=== PATIENT | female | born 1980 | race Caucasian/White ===

== ENCOUNTER 2017-01-09 07:21 | Inpatient (IN) | payer MEDICARE, MEDICAID ==
[~2017-01-09 07:21] MED LIST: Meropenem 500 MG SDV ONE
[2017-01-09] MEDS ORDERED: fentaNYL 25 MCG/HR Transdermal Patch TRDERM SCH (08:00)
[2017-01-09] MEDS ORDERED: Glycopyrrolate 0.2 MG/ML 5 ML MDV ONE (08:02)
[2017-01-09] MEDS ORDERED: Succinylcholine 200 MG/10 ML MDV ONE (08:02)
[2017-01-09] MEDS ORDERED: Ondansetron 4 MG/2 ML SDV ONE (08:02)
[2017-01-09] MEDS ORDERED: Propofol 200 MG/20 ML SDV ONE (08:02)
[2017-01-09] MEDS ORDERED: Rocuronium 50 MG/5 ML Vial ONE ×2 (08:02→10:23)
[2017-01-09] MEDS ORDERED: Dexamethasone 4 MG/ML SDV ONE (08:02)
[2017-01-09] MEDS ORDERED: Neostigmine Methylsulfate 1 MG/ML 5 ML Syringe ONE (08:06)
[2017-01-09] MEDS ORDERED: HYDROmorphone/Normal Saline 15 MG/30 ML PCA IV PRN (08:25)
[2017-01-09] MEDS: Albuterol/Ipratropium 3.0-0.5 MG/3 ML Neb Soln NEB ONE ×2 (08:26→15:00)
[2017-01-09] MEDS ORDERED: Dextrose 5%-Lactated Ringers 1,000 ML IV SCH (08:30)
[2017-01-09] MEDS ORDERED: ceFAZolin 2 GM in Premix Bag 1 BAG IV ONE (10:00)
[2017-01-09] MEDS ORDERED: Linezolid 200 MG/100 ML Bag IRR ONE (10:31)
[2017-01-09] MEDS ORDERED: Albuterol/Ipratropium 3.0-0.5 MG/3 ML Neb Soln INH PRN (12:18)
[2017-01-09] MEDS ORDERED: Ondansetron 4 MG/2 ML SDV IVPUSH PRN (12:23)
[2017-01-09] MEDS ORDERED: Baclofen 10 MG Tab PO PRN (12:30)
[2017-01-09] MEDS ORDERED: hydrOXYzine HCl 100 MG/2 ML SDV IM PRN (12:33)
[2017-01-09] MEDS ORDERED: Calcium Carbonate 500 MG Tab.Chew PO PRN (12:35)
[2017-01-09] MEDS ORDERED: FENTANYL PATCH CHECK TOP SCH (13:00)
[2017-01-09] MEDS ORDERED: Naloxone 0.4 MG/ML SDV IV PRN (13:03)
[2017-01-09] MEDS: hydrOXYzine HCl 25 MG Tab PO PRN (14:50)
[2017-01-09] MEDS: ceFAZolin 2 GM in Sodium Chloride 0.9% 50 ML IV SCH ×2 (14:58→21:00)
[2017-01-09] MEDS: Gabapentin 300 MG Cap PO SCH ×2 (14:59→20:48)
[2017-01-09] MEDS: Venlafaxine 100 MG Tab PO SCH ×2 (15:00→20:47)
[2017-01-09] MEDS: Albuterol/Ipratropium 3.0-0.5 MG/3 ML Neb Soln INH SCH ×2 (16:15→20:49)
[2017-01-09] MEDS ORDERED: Prazosin 1 MG Cap PO SCH (17:00)
[2017-01-09] MEDS: Dextrose 5%-Lactated Ringers 1,000 ML IV SCH (17:07)
[2017-01-09] MEDS: busPIRone 10 MG Tab PO SCH (20:45)
[2017-01-09] MEDS: Montelukast 10 MG Tab PO SCH (20:45)
[2017-01-09] MEDS: Formoterol/Mometasone 200-5 MCG 8.8 GM Inhaler IH SCH (20:45)
[2017-01-09] MEDS: Pregabalin 100 MG Cap PO SCH (20:59)
[2017-01-10] MEDS: Dextrose 5%-Lactated Ringers 1,000 ML IV SCH (00:43)
[2017-01-10] MEDS: ceFAZolin 2 GM in Sodium Chloride 0.9% 50 ML IV SCH (05:49)
--- NOTE | 2017-01-10 07:34 | ANES ---
DATE OF SERVICE: 01/10/2017 ADDENDUM: ANESTHESIA START TIME: 9:50 a.m. Adding an addendum to my anesthesia record as to which I gave 2 g Ancef preop at 0955 hours. Vito Serrano CRNA /[id number]
[2017-01-10] MEDS: Acetaminophen/Codeine 300-30 MG Tab PO PRN ×4 (08:26→21:25)
[2017-01-10] MEDS: Venlafaxine 100 MG Tab PO SCH ×3 (08:28→21:29)
[2017-01-10] MEDS: Propranolol 80 MG Cap.ER PO SCH (08:28)
[2017-01-10] MEDS: Celecoxib 200 MG Cap PO SCH (08:28)
[2017-01-10] MEDS: Loratadine 10 MG Tab PO SCH (08:28)
[2017-01-10] MEDS: Pantoprazole 40 MG Tab.CR PO SCH (08:28)
[2017-01-10] MEDS: Polyethylene Glycol 3350 Powder 17 GM Packet PO SCH ×2 (08:29→21:28)
[2017-01-10] MEDS: Gabapentin 300 MG Cap PO SCH ×3 (08:29→21:25)
[2017-01-10] MEDS: Formoterol/Mometasone 200-5 MCG 8.8 GM Inhaler IH SCH ×2 (08:35→21:27)
[2017-01-10] MEDS: Albuterol/Ipratropium 3.0-0.5 MG/3 ML Neb Soln INH SCH ×4 (08:35→21:25)
[2017-01-10] MEDS: Pregabalin 100 MG Cap PO SCH ×2 (08:36→21:25)
[2017-01-10] MEDS ORDERED: Polyethylene Glycol 3350 Powder 17 GM Packet PO SCH (09:00)
--- NOTE | 2017-01-10 09:22 | PN ---
DATE OF SERVICE: 01/10/2017 SUBJECTIVE: Shannon is postop day #1. Her IV came out. She has been up ambulating, tolerating clear liquids well. She is urinating without any difficulty. Oral intake was 2020 and urine output was 3650. Vital signs have been stable and pain is controlled. She was very sleepy when she came up from recovery room. Her fentanyl patch was removed, and she has been alert, ambulating quite well, and is on a fall risk, so was encouraged to put on her light when she is up and ambulating. REVIEW OF SYSTEMS: Remainder of review of systems negative for any pertinent positives and negatives. OBJECTIVE: GENERAL: Shannon Balderas is a pleasant 36-year-old female. VITAL SIGNS: TPR is 97, 51, 18. Blood pressure is 94/52. HEENT: Negative. NECK: Supple. HEART: Regular rate and rhythm. LUNGS: Clear. ABDOMEN: Dressings dry and intact. Abdominal binder is on. EXTREMITIES: Without peripheral edema. ASSESSMENT: Open laparotomy with lysis of adhesion, repair of recurrent incarcerated incisional hernia with mesh and placement of Interceed mesh for recurrent incarcerated incisional hernia on 01/09/2017. PLAN: 1. Tylenol No. 3 one to two q.4 hours p.r.n. pain. 2. Regular diet. 3. Dressing off, may shower. 4. Senna 1 b.i.d. 5. MiraLax 34 g b.i.d. 6. Good pulmonary toilet encouraged. 7. We will evaluate p.r.n. or in a.m. Tatiana Dhaliwal PA-C /[id number]
[2017-01-10] MEDS: Iron Sucrose Complex 500 MG in Sodium Chloride 0.9% 250 ML IV SCH (10:11)
[2017-01-10] MEDS: hydrOXYzine HCl 25 MG Tab PO PRN (11:15)
[2017-01-10] MEDS: lamoTRIgine 25 MG Tab PO SCH (15:04)
[2017-01-10] MEDS: Nicotine 14 MG/24 Hr Patch ONE ×2 (19:21→19:25)
[2017-01-10] MEDS: Nicotine 14 MG/24 Hr Patch TRDERM SCH (19:22)
[2017-01-10] MEDS ORDERED: Prazosin 1 MG Cap PO SCH (21:00)
[2017-01-10] MEDS: busPIRone 10 MG Tab PO SCH (21:27)
[2017-01-10] MEDS: Montelukast 10 MG Tab PO SCH (21:36)
[2017-01-11] MEDS: Acetaminophen/Codeine 300-30 MG Tab PO PRN ×3 (01:25→09:34)
[2017-01-11] MEDS: Pantoprazole 40 MG Tab.CR PO SCH (07:02)
[2017-01-11] MEDS: Formoterol/Mometasone 200-5 MCG 8.8 GM Inhaler IH SCH (07:05)
[2017-01-11] MEDS: Albuterol/Ipratropium 3.0-0.5 MG/3 ML Neb Soln INH SCH ×2 (07:05→11:17)
[2017-01-11] MEDS: Celecoxib 200 MG Cap PO SCH (07:59)
[2017-01-11] MEDS: Propranolol 80 MG Cap.ER PO SCH (08:00)
[2017-01-11] MEDS: Nicotine 14 MG/24 Hr Patch TRDERM SCH (08:00)
[2017-01-11] MEDS: Loratadine 10 MG Tab PO SCH (08:00)
[2017-01-11] MEDS: Venlafaxine 100 MG Tab PO SCH (08:00)
[2017-01-11] MEDS: Polyethylene Glycol 3350 Powder 17 GM Packet PO SCH (08:01)
[2017-01-11] MEDS: Gabapentin 300 MG Cap PO SCH (08:01)
[2017-01-11] MEDS: lamoTRIgine 25 MG Tab PO SCH (08:01)
[2017-01-11] MEDS: Pregabalin 100 MG Cap PO SCH (08:05)
[2017-01-11] MEDS: Iron Sucrose Complex 500 MG in Sodium Chloride 0.9% 250 ML IV SCH (08:18)
[2017-01-11] MEDS ORDERED: Magnesium Hydroxide 400 MG/5 ML Susp 30 ML Cup PO ONE (10:15)
[2017-01-11 10:50] VITALS: BP 121/78
--- NOTE | 2017-01-11 18:30 | DISCH ---
FINAL DIAGNOSIS: Recurrent incarcerated incisional hernia with extensive intra-abdominal adhesions. SECONDARY DIAGNOSES: 1. Psychiatric issues including adult night terrors, anxiety and depression with bipolar II disorder and personality disorder and posttraumatic stress disorder. 2. Drug-seeking behavior. 3. History of Idiopathic thrombocytopenic purpura. 4. History of migraines. PROCEDURES: 1. Done on the date of admission is open laparotomy with lysis of adhesions. a. Repair of recurrent incarcerated incisional hernia with mesh. b. Placement of Interceed mesh to limit recurrent adhesion formation. HOSPITAL COURSE: This is a 28-year-old presenting with recurrent hernia located in the mid abdomen along the midline incision. The plan is proceed with an open repair of this. She has had quite extensive adhesions and the extent of hernia would make this a better repair done as open, particularly givin the overlying deformity of the abdominal wall which would be corrected at the time of closure of the open incision. This procedure was done on the date of admission, and she has done well postoperatively. She is presently eating and passing gas, not moving her bowels as of yet. The plan will be to discharge home today with the patient receiving some additional Tylenol 3. We will give Tylenol No. 3, 1 to 2 tabs q.4 hours p.r.n. pain, #40. She will continue the Celebrex and the gabapentin as preoperatively and send her home with 2 doses of milk of magnesia. She will be instructed to use MiraLAX more in colonoscopy prep range in terms of volume if she is not moving her bowels in the next 48 hours. The patient was noted to have a low ferritin preoperatively and received two doses of Venofer 500 mg IV during the course of the hospitalization to get caught up in her iron stores. Followup will be with Tatiana Dhaliwal at [facility] on 01/20/2017. Final diagnosis includes iron deficiency state. Wagner Lane MD /[id number]
--- NOTE | 2017-01-14 08:51 | OR ---
DATE OF PROCEDURE: 01/09/2017 PREOPERATIVE DIAGNOSIS: Recurrent incisional hernia. POSTOPERATIVE DIAGNOSES: 1. Recurrent incarcerated incisional hernia. 2. Extensive intraperitoneal adhesions. OPERATIVE PROCEDURE: 1. Open laparotomy with lysis of adhesions. a. Repair of recurrent incarcerated incisional hernia with mesh (73913, 05508). b. Placement of Interceed mesh to displace pelvic and abdominal wall from viscera to reduce subsequent adhesion formation (78364). ANESTHESIA: General. ASSISTANTS: Tatiana Dhaliwal PA-C and PRIYA Toro. INDICATION FOR PROCEDURE: This is a 36-year-old presenting with recurrent incisional hernia, which is located in the midportion of the upper midline incision. This was associated with quite a bit of distortion of the overlying skin, and on examination, it is felt it would be best approached with an open type incision, given her previous extensive adhesions seen at other attempts at laparoscopy. Potential risks of the procedure including bleeding, infection, injury to underlying viscera, problems with mesh becoming infected, recurrence of the hernia, as well as remote possibility of cardiopulmonary, septic, or hemorrhagic complications leading to were discussed, and the patient wishes to proceed. DETAILS OF PROCEDURE: The patient was taken to the operating room and placed in a supine position. After general endotracheal anesthesia was induced, a Boston catheter was inserted, and the abdomen was prepped and draped. An incision was then made over the area of the herniation and extending slightly above and below it and the center of the incision including an ellipse of skin, which was more or less in a concavity of the abdominal wall and likely adherent to the hernia mesh. As one dissected down, the hernia sac was identified and then opened. It was found to have some incarcerated component within it with some transverse colon, as well as appendix epiploica of the transverse colon being adherent to the hernia sac. These were divided away from hernia sac and the sac then divided away flush with the underlying fascia, and that specimen delivered from the field. There were quite extensive adhesions underlying the incision, and these were taken down with a combination of blunt dissection and electrocautery. Once these adhesions were taken down, there appeared to be adequate room to place the mesh. After mapping out the hernia, a Ventrio ST hernia patch with an oval configuration and dimensions of 15 x 12 cm was selected. At roughly 5 cm intervals along its circumference, 2-0 Vicryl sutures were placed on the polypropylene side of the mesh, and these were placed at werner on the skin where the sutures would be pulled up, fixing it well away from the fascial defect. Once these sutures were placed, the mesh was soaked in antibiotic-containing saline solution, stab wounds at the premarked locations were made, and the mesh was placed in the intraperitoneal location. After half of the sutures were pulled up, the mesh was then pulled up once again and, underlying this, Interceed mesh placed along the pelvic sidewalls and up against the abdominal wall and underlying the mesh to limit recurrent adhesion formation. The remaining sutures were then pulled up, fixing the mesh in general position. The mesh was obviously oriented with the polypropylene side facing the abdominal wall. The area was irrigated with antibiotic-containing saline solution. The underside of the mesh was then affixed to the abdominal wall through the shelf of the mesh with titanium tacking screws. Once this was completed, the midline fascia was approximated with #2 Vicryl stitch, subcutaneous tissue was then closed with 2 layers of 3-0 Vicryl stitch, and the skin with stef. Dressing was applied. The patient was taken to the recovery room in satisfactory condition. There were no evident complications. Physician library services assistant, Tatiana Dhaliwal played an essential role in assisting in this case, helping to position the patient, retract structures as needed, as well as suturing and cutting sutures when indicated. Her presence improved the patient's safety and decreased the operative time. Wagner Lane MD /[id number]
== END 2017-01-11 12:28 | disposition home or self-care (01) | DRG 336 ==
LOC: JP.MS 07:21 → JP.SDS 07:21 → JP.2SS 11:15 → EDSTATUS 13:55
PROVIDERS: ADMIT Surgery; ATTEND Surgery
DX: K43.0 Incisional hernia with obstruction, without gangrene (principal); F31.81 Bipolar II disorder; K66.0 Peritoneal adhesions (postprocedural) (postinfection); F17.210 Nicotine dependence, cigarettes, uncomplicated; F41.9 Anxiety disorder, unspecified; M54.9 Dorsalgia, unspecified; G89.29 Other chronic pain; F43.10 Post-traumatic stress disorder, unspecified; J30.2 Other seasonal allergic rhinitis; Z88.8 Allergy status to other drugs, medicaments and biological substances; F51.4 Sleep terrors [night terrors]; F60.9 Personality disorder, unspecified; Z76.5 Malingerer [conscious simulation]; E61.1 Iron deficiency
CPT/HCPCS: 36415; 80053; 83735; 84100; 88302; 94640-76; A9270-GY; C1781; J0330; J0690; J1100; J1170; J1756; J2020; J2185; J2405; J2704; J2710; J3010; J7042; J7050; J7620

== ENCOUNTER 2017-01-23 12:02 | Inpatient (IN) | payer MEDICARE, MEDICAID ==
[2017-01-23] MEDS ORDERED: Acetaminophen 325 MG Tab PO PRN ×2 (12:32→15:13)
[2017-01-23] MEDS ORDERED: Acetaminophen 650 MG Supp RECTAL PRN (12:33)
[2017-01-23] MEDS: Dextrose 5%-Lactated Ringers 1,000 ML IV SCH (12:50)
[2017-01-23] MEDS ORDERED: Sodium Chloride 0.9% 10 ML Syringe FLUSH PRN (13:19)
[2017-01-23] MEDS ORDERED: Iohexol 647 MG/ML 10 ML SDV ONE (13:35)
[2017-01-23] MEDS: Piperacillin/Tazobactam/Dext 4.5 GM in Premix Bag 1 BAG IV SCH ×2 (14:07→21:41)
[2017-01-23] MEDS ORDERED: Iopamidol 612 MG/ML 150 ML Bottle IV PRN (14:08)
[2017-01-23] MEDS ORDERED: Sodium Chloride 0.9% 80 ML IV SCH (14:15)
[2017-01-23] MEDS ORDERED: Albuterol 8 GM Inhaler INH PRN (15:13)
[2017-01-23] MEDS: Acetaminophen/Codeine 300-30 MG Tab PO PRN ×2 (16:07→21:42)
[2017-01-23] MEDS ORDERED: Prazosin 1 MG Cap PO SCH (17:00)
[2017-01-23] MEDS: Calcium Carbonate 500 MG Tab.Chew PO SCH (17:46)
[2017-01-23] MEDS: Pantoprazole 40 MG Vial IVPUSH SCH (19:22)
[2017-01-23] MEDS: busPIRone 10 MG Tab PO SCH (21:38)
[2017-01-23] MEDS: Venlafaxine 100 MG Tab PO SCH (21:39)
[2017-01-23] MEDS: Formoterol/Mometasone 200-5 MCG 8.8 GM Inhaler IH SCH (21:39)
[2017-01-23] MEDS: Gabapentin 300 MG Cap PO SCH (21:40)
[2017-01-23] MEDS: Sennosides 8.6 MG Tab PO SCH (21:40)
[2017-01-23] MEDS: Cyanocobalamin (Vitamin B12) 1,000 MCG Tab SL SCH (21:41)
[2017-01-23] MEDS: Pregabalin 100 MG Cap PO SCH (21:41)
[2017-01-24] MEDS: Dextrose 5%-Lactated Ringers 1,000 ML IV SCH ×2 (02:00→21:30)
[2017-01-24] MEDS: Acetaminophen/Codeine 300-30 MG Tab PO PRN ×5 (05:00→21:29)
[2017-01-24] MEDS: Pantoprazole 40 MG Vial IVPUSH SCH ×2 (05:00→17:21)
[2017-01-24] MEDS: Piperacillin/Tazobactam/Dext 4.5 GM in Premix Bag 1 BAG IV SCH ×3 (05:01→21:30)
[2017-01-24] MEDS: Formoterol/Mometasone 200-5 MCG 8.8 GM Inhaler IH SCH ×2 (07:12→20:33)
--- NOTE | 2017-01-24 07:20 | PN ---
DATE OF SERVICE: 01/24/2017 SUBJECTIVE: Shannon is n.p.o. She will be having her open wound debrided and cleaned out in surgery with a placement of wound VAC and possible placement of PICC line. Dr. Alok Arevalo will be doing the procedure. She has not met him yet and he will explain the procedure and go over the possible risks and side effects. It was explained to her that it will be under IV sedation. REVIEW OF SYSTEMS: States her pain is 4/10. She has slept well during the night. Vital signs have been stable. Oral intake 600 and urine output was 1600 over the past 24 hours. She has been n.p.o. after midnight as stated. Afebrile. Temp max 97.5. Remainder of review of systems negative for any other pertinent positives and negatives. OBJECTIVE: GENERAL: Shannon Peterson is a 36-year-old female. She is alert and orientated. VITAL SIGNS: TPR is 97.2, 68, 18, blood pressure 100/58. HEENT: Negative. NECK: Supple. HEART: Regular rate and rhythm. LUNGS: Clear. ABDOMEN: Dressings dry and intact. Abdominal binder is on. EXTREMITIES: Without peripheral edema and skin without rash. ASSESSMENT: Dehiscence of closure of fascia, SP laparotomy with lysis of adhesions, repair of recurrent incarcerated incisional hernia with mesh, placement of Interceed mesh to displaced pelvic and abdominal wall from the surgery due to subsequent adhesion formation, Wagner Lane MD surgeon, date of surgery 01/09/2017; SP Nabil-en-Y gastric bypass surgery; unspecified surgical malabsorption; B12 deficiency; B complex deficiency; vitamin D deficiency; iron deficiency. PLAN: Remain n.p.o. Alok Arevalo MD to explain procedure, possible risks and complications and consent will need to be signed. We will evaluate p.r.n. or in a.m. Tatiana Dhaliwal PA-C /[id number]
--- NOTE | 2017-01-24 08:38 | CT ---
Abdomen Pelvis w Cont Total DLP 875 mGycm. INDICATION: wound dehiscence COMPARISON: Ultrasound 01/22/2017. FINDINGS: Postoperative changes gastric bypass, cholecystectomy, and anterior abdominal wall hernia r epair. There is dehiscence of the upper anterior abdominal wall incision with a fluid collection jus t deep to the fascia measuring 1.7 cm AP x 5.3 cm RL x 8.9 cm SI. Gas and fluid throughout the colon. Small amount of free fluid in the pelvis. Exam otherwise unremarkable. IMPRESSION: 1. 1.7 cm AP x 5.3 cm RL x 8.9 cm SI fluid collection just deep to the fascia at the level of the wou nd dehiscence. Abscess is not excluded.
[2017-01-24] MEDS ORDERED: Bupivacaine 0.5% 50 ML MDV ONE (10:01)
[2017-01-24] MEDS ORDERED: Lidocaine 1% with EPINEPHrine 1:100,000 50 ML MDV ONE (10:01)
[2017-01-24] MEDS ORDERED: Propofol 200 MG/20 ML SDV ONE ×3 (10:52→11:27)
[2017-01-24] MEDS ORDERED: Midazolam 1 MG/ML 2 ML SDV ONE (10:53)
[2017-01-24] MEDS ORDERED: fentaNYL 100 MCG/2 ML SDV ONE ×2 (10:53→11:04)
[2017-01-24] MEDS ORDERED: Lactated Ringers 1,000 ML ONE (11:07)
[2017-01-24] MEDS: Calcium Carbonate 500 MG Tab.Chew PO SCH ×3 (12:18→17:21)
[2017-01-24] MEDS: Gabapentin 300 MG Cap PO SCH ×3 (12:18→20:39)
[2017-01-24] MEDS: Propranolol 80 MG Cap.ER PO SCH (12:19)
[2017-01-24] MEDS: Ferrous Sulfate 325 MG Tab PO SCH (12:19)
[2017-01-24] MEDS: Venlafaxine 100 MG Tab PO SCH ×3 (12:19→20:36)
[2017-01-24] MEDS: Folic Acid 1 MG Tab PO SCH (12:20)
[2017-01-24] MEDS: Cholecalciferol (Vitamin D3) 1,000 Unit Tab PO SCH (12:20)
[2017-01-24] MEDS: Vitamin B Complex Tab PO SCH (12:20)
[2017-01-24] MEDS: Sennosides 8.6 MG Tab PO SCH ×2 (12:21→20:39)
[2017-01-24] MEDS: Pregabalin 100 MG Cap PO SCH ×2 (12:28→20:49)
[2017-01-24] MEDS: Cyanocobalamin (Vitamin B12) 1,000 MCG Tab SL SCH ×2 (12:30→20:39)
[2017-01-24] MEDS: Polyethylene Glycol 3350 Powder 17 GM Packet PO PRN (17:27)
[2017-01-24] MEDS: Baclofen 10 MG Tab PO PRN (19:33)
[2017-01-24] MEDS: busPIRone 10 MG Tab PO SCH (20:35)
[2017-01-24] MEDS: Prazosin 1 MG Cap PO SCH (20:37)
--- NOTE | 2017-01-24 21:19 | CONS ---
DATE OF SERVICE: 01/24/2017 REFERRING PHYSICIAN: CONSULTING PHYSICIAN: Alok Arevalo MD This is a consult from Tatiana Dhaliwal PA-C. REASON FOR CONSULTATION: Open abdominal wound. HISTORY OF PRESENT ILLNESS: This is a 36-year-old female with a midline abdominal wound. This is currently open and associated with apparent sepsis. The patient underwent a repair of incarcerated incisional hernia with mesh placement on 01/09/[address]. The patient has pain with this, which is 1 to 2 out of 10. No nausea, vomiting, shortness of breath, or chest pain. PAST MEDICAL HISTORY: Anxiety, depression, bipolar, history of multiple bowel obstructions and abdominal surgeries, chronic abdominal pain, chronic back pain, drug-seeking behavior, idiopathic thrombocytopenic purpura, migraines, personality disorder, PTSD, spondylosis, wheezing. PAST SURGICAL HISTORY: Extensive but includes section, multiple abscess drainages, gastric bypass surgery, small intestinal bowel resection, cholecystectomy, lysis of adhesions, multiple gastric banding, removal of foreign bodies, multiple incisional hernia repairs, umbilical hernia repairs, multiple small bowel resections, tubal ligation. MEDICATIONS: Please see chart but are extensive. SOCIAL HISTORY: History of smoking. FAMILY HISTORY: Noncontributory. REVIEW OF SYSTEMS: EYES: No symptoms. ENT: No symptoms. GASTROINTESTINAL: The patient is having bowel movements. GENITOURINARY: No dysuria. ABDOMEN: Abdominal exam shows open abdominal wound down to at least the fascia. SKIN: Does not show any evidence of cellulitis. EXTREMITIES: Full range of motion. Strength 5/5. LABORATORY RESULTS: Show white blood cell count is normal. Basic metabolic panel is normal. IMAGING: I did review a CT scan, which showed a 1.7 x 5.3 x 8.9 fluid collection just deep to the fascia with wound dehiscence. ASSESSMENT: Wound dehiscence. PLAN: The patient will be taken to the operating room for exploratory laparotomy. We discussed risks, benefits, alternatives, limitations including, but not limited to infection, bleeding, injury to abdominal structures, fistula formation, and other risks not listed here. The patient understands these risks and wished to proceed. Alok Arevalo MD /[id number]
[2017-01-25] MEDS: Acetaminophen/Codeine 300-30 MG Tab PO PRN ×5 (03:15→20:51)
[2017-01-25] MEDS: Pantoprazole 40 MG Vial IVPUSH SCH (06:09)
[2017-01-25] MEDS: Piperacillin/Tazobactam/Dext 4.5 GM in Premix Bag 1 BAG IV SCH ×3 (06:09→23:34)
[2017-01-25] MEDS: Formoterol/Mometasone 200-5 MCG 8.8 GM Inhaler IH SCH ×2 (07:58→20:47)
[2017-01-25] MEDS: Calcium Carbonate 500 MG Tab.Chew PO SCH ×3 (08:00→16:35)
[2017-01-25] MEDS: Cholecalciferol (Vitamin D3) 1,000 Unit Tab PO SCH (08:01)
[2017-01-25] MEDS: Gabapentin 300 MG Cap PO SCH ×3 (08:01→20:50)
[2017-01-25] MEDS: Venlafaxine 100 MG Tab PO SCH ×3 (08:01→20:48)
[2017-01-25] MEDS: Ferrous Sulfate 325 MG Tab PO SCH (08:01)
[2017-01-25] MEDS: Cyanocobalamin (Vitamin B12) 1,000 MCG Tab SL SCH ×2 (08:02→20:50)
[2017-01-25] MEDS: Vitamin B Complex Tab PO SCH (08:02)
[2017-01-25] MEDS: Propranolol 80 MG Cap.ER PO SCH (08:03)
[2017-01-25] MEDS: Folic Acid 1 MG Tab PO SCH (08:03)
[2017-01-25] MEDS: Sennosides 8.6 MG Tab PO SCH ×2 (08:03→20:50)
[2017-01-25] MEDS: Pregabalin 100 MG Cap PO SCH ×2 (08:12→20:49)
--- NOTE | 2017-01-25 08:13 | PN ---
DATE OF SERVICE: 01/25/2017 SUBJECTIVE: Shannon has been afebrile. Pain has been controlled. She had a wound VAC put on yesterday. LATASHA drain put out 320 of a yellow colored drainage, somewhat cloudy. She has been up ambulating. Temp max 98.8 in the past 24 hours. Oral intake was 1720. Urine output was 1800. REVIEW OF SYSTEMS: Remainder of review of systems is negative for any pertinent positives and negatives. OBJECTIVE: GENERAL: Shannon is a pleasant 36-year-old female. She is alert and oriented, sitting on the edge of the bed. VITAL SIGNS: TPR 97.5, 60, 16. Blood pressure 95/58. HEENT: Negative. NECK: Supple. HEART: Regular rate and rhythm. LUNGS: Clear. ABDOMEN: Wound VAC is on. LATASHA drain is draining light yellow cloudy drainage. EXTREMITIES: Without peripheral edema. ASSESSMENT: 1. Wound incision and drainage. Wound VAC application. Date 01/24/2017. Dehiscence of closure of fascia. 2. Status post laparotomy with lysis of adhesions, repair of recurrent incarcerated hernia with mesh, placement of Interceed mesh to displace pelvic and abdominal wall from the surgery from the pelvis due to subsequent adhesion formation. Wagner Lane MD is surgeon. Date of surgery, 01/09/2017. 3. Wound culture, Staphylococcus aureus. PLAN: Discontinue oral and rectal Tylenol. The patient is taking Tylenol No. 3, 1-2 q.4 hours for pain. Check CBC, CMP, mag, phos in a.m. Vancomycin 1 g q.12 hours IV. Continue Azactam until the sensitivity is back from the culture that was taken on 01/23/2017. Good pulmonary toilet encouraged. We will evaluate p.r.n. or in a.m. Tatiana Dhaliwal PA-C /[id number]
[2017-01-25] MEDS: Ondansetron 4 MG Tab.DIS PO PRN (08:51)
[2017-01-25] MEDS: Dextrose 5%-Lactated Ringers 1,000 ML IV SCH (14:01)
[2017-01-25] MEDS: Pantoprazole 40 MG Tab.CR PO SCH (16:37)
[2017-01-25] MEDS: lamoTRIgine 25 MG Tab PO SCH (20:48)
[2017-01-25] MEDS: busPIRone 10 MG Tab PO SCH (20:48)
[2017-01-25] MEDS: Prazosin 1 MG Cap PO SCH (20:49)
[2017-01-26] MEDS: Acetaminophen/Codeine 300-30 MG Tab PO PRN ×5 (01:10→19:25)
[2017-01-26] MEDS: Dextrose 5%-Lactated Ringers 1,000 ML IV SCH ×3 (02:48→17:10)
[2017-01-26] MEDS: Piperacillin/Tazobactam/Dext 4.5 GM in Premix Bag 1 BAG IV SCH (05:38)
[2017-01-26] MEDS: Pantoprazole 40 MG Tab.CR PO SCH ×2 (07:34→15:42)
[2017-01-26] MEDS: Formoterol/Mometasone 200-5 MCG 8.8 GM Inhaler IH SCH ×2 (07:39→22:01)
[2017-01-26] MEDS ORDERED: Levofloxacin/Dextrose 5%-Water 500 MG in Premix Bag 1 BAG IV SCH (09:00)
[2017-01-26] MEDS: Nicotine 14 MG/24 Hr Patch TRDERM SCH ×2 (09:20)
[2017-01-26] MEDS: Ferrous Sulfate 325 MG Tab PO SCH (09:20)
[2017-01-26] MEDS: Calcium Carbonate 500 MG Tab.Chew PO SCH ×3 (09:21→19:25)
[2017-01-26] MEDS: Folic Acid 1 MG Tab PO SCH (09:21)
[2017-01-26] MEDS: Venlafaxine 100 MG Tab PO SCH ×3 (09:21→22:03)
[2017-01-26] MEDS: Propranolol 80 MG Cap.ER PO SCH (09:21)
[2017-01-26] MEDS: Vitamin B Complex Tab PO SCH (09:23)
[2017-01-26] MEDS: Sennosides 8.6 MG Tab PO SCH ×2 (09:23→22:04)
[2017-01-26] MEDS: Cholecalciferol (Vitamin D3) 1,000 Unit Tab PO SCH (09:23)
[2017-01-26] MEDS: Gabapentin 300 MG Cap PO SCH ×3 (09:23→22:02)
[2017-01-26] MEDS: Pregabalin 100 MG Cap PO SCH ×2 (09:40→22:03)
--- NOTE | 2017-01-26 10:16 | PN ---
DATE OF SERVICE: 01/26/2017 SUBJECTIVE: Shannon's Gram stain from 01/22 came back Staphylococcus aureus, and the final Gram stain culture came back rare gram-positive cocci. She states she is feeling better, having less pain, has been up ambulating. Wound VAC remains on her and draining very little. Her LATASHA drain put out 30 mL of a cloudy yellow drainage. Temp max 98.7. REVIEW OF SYSTEMS: Remainder of review of systems negative for any pertinent positives and negatives. OBJECTIVE: GENERAL: Shannon Balderas is a 36-year-old female. She is alert and orientated. VITAL SIGNS: TPR 98.7, 68, 18. Blood pressure 124/66. HEENT: Negative. NECK: Supple. HEART: Regular rate and rhythm. LUNGS: Clear. ABDOMEN: Wound VAC on. LATASHA drain as above. EXTREMITIES: Without peripheral edema. ASSESSMENT: 1. Some dehiscence of closure of fascia. 2. Status post laparotomy with lysis of adhesion, repair of recurrent incarcerated incisional hernia with mesh, placement of Interceed mesh to displace pelvic and abdominal wall due to subsequent adhesion formation. Wagner Lane MD is surgeon. Date of surgery, 01/09/2017. 3. Wound culture, Staphylococcus aureus. PLAN: Continue same antibiotics. Nicotine patch 14 mg q.24 hours. To evaluate p.r.n. or in a.m. Tatiana Dhaliwal PA-C /[id number]
[2017-01-26] MEDS: Cyanocobalamin (Vitamin B12) 1,000 MCG Tab SL SCH ×2 (10:42→22:03)
[2017-01-26] MEDS: Ondansetron 4 MG Tab.DIS PO PRN (15:35)
[2017-01-26] MEDS: Baclofen 10 MG Tab PO PRN (22:01)
[2017-01-26] MEDS: Prazosin 1 MG Cap PO SCH (22:02)
[2017-01-26] MEDS: busPIRone 10 MG Tab PO SCH (22:03)
[2017-01-26] MEDS: lamoTRIgine 25 MG Tab PO SCH (22:04)
[2017-01-26] MEDS ORDERED: Sodium Chloride 0.9% 1,000 ML IV SCH (23:59)
[2017-01-27] MEDS: Dextrose 5%-Lactated Ringers 1,000 ML IV SCH ×2 (00:53→17:19)
[2017-01-27] MEDS: Acetaminophen/Codeine 300-30 MG Tab PO PRN ×2 (01:37→05:39)
[2017-01-27] MEDS ORDERED: Naloxone 0.4 MG/ML SDV IV PRN (07:14)
[2017-01-27] MEDS: Formoterol/Mometasone 200-5 MCG 8.8 GM Inhaler IH SCH ×2 (07:26→21:09)
[2017-01-27] MEDS: HYDROmorphone/Normal Saline 15 MG/30 ML PCA IV SCH ×2 (07:48→21:05)
--- NOTE | 2017-01-27 08:37 | OR ---
DATE OF PROCEDURE: 01/24/2017 PROCEDURE: 1. Exploratory laparotomy (10748). 2. Drainage of intraabdominal abscess (60829). 3. Wound VAC placement (71144). FINDINGS: 1. Fluid collection directly inferior to the mesh. 2. Open abdominal wound with dehiscence noted of the fascial wall, partial. COMPLICATIONS: None. SCARF AND ANNEAL OPERATOR: None. INDICATIONS: A 36-year-old female, who recently underwent a repair of recurrent incarcerated incisional hernia with mesh. The patient had a dehiscence of her wound and subsequent CT scan, which showed fluid collection concerning for abscess. RISK: Risks, benefits, alternatives, limitations including but not limited to infection, bleeding, fistula formation, evisceration, chronic wound problems/chronic wound pain were all explained to the patient, and they wished to proceed. PROCEDURE IN DETAIL: The patient was placed in supine position. The previous midline abdominal incision, as previously stated, had already dehisced. This was noted to have fascial failure also. The sutures were removed, and the wound was opened. Immediately below the mesh, a fluid collection was identified and sent for culture. This was suctioned out. After this, this was thoroughly irrigated. A 10 flat Wilber-Melchor drain will be placed in this area. The bowel itself was inspected cursorily, and this was noted to have significant inflammation consistent with either infection or pending fistula formation. Of note, there was no evidence of fistula at this time. This appears to be more of an inflammatory reaction with respect to proximity of the bowel with respect to mesh. The Wilber-Melchor drain was passed through the abdominal wall without difficulty. This was performed under direct visualization. The fascia was then closed with #1 Vicryl suture in interrupted fashion x5, as the total length was approximately 1 cm. This was then thoroughly irrigated again. Additional Prolene sutures were used to bolster the abdominal wall. A wound VAC was then placed in standard fashion by using black foam sponge. This was placed underneath the abdominal wall and sent to suction. The patient tolerated the procedure well. Alok Arevalo MD /[id number]
[2017-01-27] MEDS: Ciprofloxacin in D5W 400 MG in Premix Bag 1 BAG IV SCH ×4 (09:24→19:53)
[2017-01-27] MEDS: Gabapentin 300 MG Cap PO SCH ×3 (09:28→21:12)
[2017-01-27] MEDS: Nicotine 14 MG/24 Hr Patch TRDERM SCH (09:29)
--- NOTE | 2017-01-27 10:06 | PN ---
DATE OF SERVICE: 01/25/2017 SUBJECTIVE: The patient is doing well. Pain is well controlled. No nausea, vomiting, shortness of breath, or chest pain. OBJECTIVE: VITAL SIGNS: Stable. She is afebrile at 97.5, blood pressure 95/58, pulse 60, respirations 16. CARDIOVASCULAR: Regular rhythm and rate. RESPIRATORY: Lungs clear. ABDOMEN: LATASHA is intact. Output is somewhat serosanguineous. LABORATORY RESULTS: Show a normal white blood cell count and essentially a normal basic metabolic panel. ASSESSMENT: Status post drainage of seroma/abscess. The patient showed rare gram-positive cocci. PLAN: We will continue on antibiotics at this time. Continue wound VAC and continue to work on diet and pain control. Alok Arevalo MD /[id number]
[2017-01-27] MEDS ORDERED: Dexamethasone 4 MG/ML SDV ONE (10:09)
[2017-01-27] MEDS ORDERED: Succinylcholine 200 MG/10 ML MDV ONE (10:09)
[2017-01-27] MEDS ORDERED: Propofol 200 MG/20 ML SDV ONE (10:09)
[2017-01-27] MEDS ORDERED: Ondansetron 4 MG/2 ML SDV ONE (10:09)
[2017-01-27] MEDS ORDERED: Glycopyrrolate 0.2 MG/ML 5 ML MDV ONE (10:09)
[2017-01-27] MEDS ORDERED: Rocuronium 50 MG/5 ML Vial ONE (10:09)
[2017-01-27] MEDS ORDERED: Neostigmine Methylsulfate 1 MG/ML 5 ML Syringe ONE (10:09)
[2017-01-27] MEDS ORDERED: Linezolid 600 MG in Premix Bag 1 BAG IV ONE (11:00)
[2017-01-27] MEDS ORDERED: Meropenem 500 MG SDV ONE (11:08)
[2017-01-27] MEDS: Calcium Carbonate 500 MG Tab.Chew PO SCH ×3 (12:52→16:51)
[2017-01-27] MEDS: Venlafaxine 100 MG Tab PO SCH ×3 (12:53→21:10)
[2017-01-27] MEDS: Pantoprazole 40 MG Tab.CR PO SCH ×2 (12:53→16:49)
[2017-01-27] MEDS ORDERED: Lactated Ringers 1,000 ML ONE (13:53)
[2017-01-27] MEDS ORDERED: Sugammadex Sodium 200 MG/2 ML VIAL ONE (14:29)
--- NOTE | 2017-01-27 15:01 | CR ---
Chest 1V Frontal INDICATION: TLSC PLACEMENT- DO XRAY IN PAR-WILL CALL FINDINGS: Left subclavian central line with tip at the cavoatrial junction in good position. Exam oth erwise negative.
[2017-01-27] MEDS ORDERED: hydrOXYzine HCl 100 MG/2 ML SDV IM PRN (16:01)
[2017-01-27] MEDS ORDERED: hydrOXYzine HCl 25 MG Tab PO PRN (16:01)
[2017-01-27] MEDS: Ferrous Sulfate 325 MG Tab PO SCH (16:46)
[2017-01-27] MEDS: Folic Acid 1 MG Tab PO SCH (16:46)
[2017-01-27] MEDS: Cyanocobalamin (Vitamin B12) 1,000 MCG Tab SL SCH ×2 (16:47→21:13)
[2017-01-27] MEDS: Cholecalciferol (Vitamin D3) 1,000 Unit Tab PO SCH (16:47)
[2017-01-27] MEDS: Vitamin B Complex Tab PO SCH (16:47)
[2017-01-27] MEDS: Pregabalin 100 MG Cap PO SCH ×2 (16:47→21:10)
[2017-01-27] MEDS: Sennosides 8.6 MG Tab PO SCH ×2 (16:47→21:12)
[2017-01-27] MEDS: Propranolol 80 MG Cap.ER PO SCH (16:48)
[2017-01-27] MEDS: Ondansetron 4 MG Tab.DIS PO PRN (16:51)
[2017-01-27] MEDS: busPIRone 10 MG Tab PO SCH (21:08)
[2017-01-27] MEDS: Prazosin 1 MG Cap PO SCH (21:10)
[2017-01-27] MEDS: lamoTRIgine 25 MG Tab PO SCH (21:10)
[2017-01-28] MEDS ORDERED: Linezolid 600 MG in Premix Bag 1 BAG IV SCH (01:00)
[2017-01-28] MEDS: Dextrose 5%-Lactated Ringers 1,000 ML IV SCH (01:00)
[2017-01-28] MEDS: Polyethylene Glycol 3350 Powder 17 GM Packet PO PRN (05:13)
[2017-01-28] MEDS: Formoterol/Mometasone 200-5 MCG 8.8 GM Inhaler IH SCH ×2 (07:23→21:04)
[2017-01-28] MEDS ORDERED: Dextrose 5%-Lactated Ringers 1,000 ML IV SCH (08:00)
[2017-01-28] MEDS: Ciprofloxacin in D5W 400 MG in Premix Bag 1 BAG IV SCH ×4 (09:41→20:03)
[2017-01-28] MEDS: Cholecalciferol (Vitamin D3) 1,000 Unit Tab PO SCH (09:41)
[2017-01-28] MEDS: Pregabalin 100 MG Cap PO SCH ×2 (09:42→21:16)
[2017-01-28] MEDS: Cyanocobalamin (Vitamin B12) 1,000 MCG Tab SL SCH ×2 (09:42→21:10)
[2017-01-28] MEDS: Vitamin B Complex Tab PO SCH (09:42)
[2017-01-28] MEDS: Gabapentin 300 MG Cap PO SCH ×3 (09:42→21:08)
[2017-01-28] MEDS: Venlafaxine 100 MG Tab PO SCH ×3 (09:42→21:04)
[2017-01-28] MEDS: Sulfamethoxazole/Trimethoprim 800-160 MG Tab PO SCH ×2 (09:42→21:10)
[2017-01-28] MEDS: Folic Acid 1 MG Tab PO SCH (09:42)
[2017-01-28] MEDS: Magnesium Hydroxide 400 MG/5 ML Susp 30 ML Cup PO SCH ×2 (09:43→21:03)
[2017-01-28] MEDS: Ferrous Sulfate 325 MG Tab PO SCH (09:43)
[2017-01-28] MEDS: Pantoprazole 40 MG Tab.CR PO SCH ×2 (09:43→16:03)
[2017-01-28] MEDS: Nicotine 14 MG/24 Hr Patch TRDERM SCH (09:43)
[2017-01-28] MEDS: Calcium Carbonate 500 MG Tab.Chew PO SCH ×3 (09:43→16:03)
[2017-01-28] MEDS: Propranolol 80 MG Cap.ER PO SCH (09:43)
[2017-01-28] MEDS: Polyethylene Glycol 3350 Powder 119 GM Bottle PO SCH (09:44)
[2017-01-28] MEDS: Ondansetron 4 MG Tab.DIS PO PRN ×2 (12:00→18:37)
[2017-01-28] MEDS: HYDROmorphone/Normal Saline 15 MG/30 ML PCA IV SCH (15:55)
[2017-01-28] MEDS: lamoTRIgine 25 MG Tab PO SCH (21:05)
[2017-01-28] MEDS: Prazosin 1 MG Cap PO SCH (21:08)
[2017-01-28] MEDS: busPIRone 10 MG Tab PO SCH (21:08)
[2017-01-29] MEDS: Formoterol/Mometasone 200-5 MCG 8.8 GM Inhaler IH SCH ×2 (07:30→22:43)
[2017-01-29] MEDS: Magnesium Hydroxide 400 MG/5 ML Susp 30 ML Cup PO SCH ×2 (08:35→22:37)
[2017-01-29] MEDS: Ciprofloxacin in D5W 400 MG in Premix Bag 1 BAG IV SCH ×4 (08:35→19:53)
[2017-01-29] MEDS: Vitamin B Complex Tab PO SCH (08:36)
[2017-01-29] MEDS: Venlafaxine 100 MG Tab PO SCH ×3 (08:36→22:47)
[2017-01-29] MEDS: Propranolol 80 MG Cap.ER PO SCH (08:36)
[2017-01-29] MEDS: Gabapentin 300 MG Cap PO SCH ×3 (08:36→22:42)
[2017-01-29] MEDS: Calcium Carbonate 500 MG Tab.Chew PO SCH ×3 (08:36→16:42)
[2017-01-29] MEDS: Cyanocobalamin (Vitamin B12) 1,000 MCG Tab SL SCH ×2 (08:36→22:45)
[2017-01-29] MEDS: Folic Acid 1 MG Tab PO SCH (08:36)
[2017-01-29] MEDS: Nicotine 14 MG/24 Hr Patch TRDERM SCH (08:37)
[2017-01-29] MEDS: Ferrous Sulfate 325 MG Tab PO SCH (08:37)
[2017-01-29] MEDS: Pantoprazole 40 MG Tab.CR PO SCH ×2 (08:37→16:42)
[2017-01-29] MEDS: Sulfamethoxazole/Trimethoprim 800-160 MG Tab PO SCH ×2 (08:37→22:46)
[2017-01-29] MEDS: Polyethylene Glycol 3350 Powder 119 GM Bottle PO SCH (08:38)
[2017-01-29] MEDS: Cholecalciferol (Vitamin D3) 1,000 Unit Tab PO SCH (08:38)
[2017-01-29] MEDS: Pregabalin 100 MG Cap PO SCH ×2 (08:51→22:42)
[2017-01-29] MEDS: HYDROmorphone/Normal Saline 15 MG/30 ML PCA IV SCH (10:35)
--- NOTE | 2017-01-29 14:22 | PN ---
DATE OF SERVICE: 01/27/2017 The patient has been afebrile with stable vital signs. Cultures on the wound have all been Staphylococcus aureus, sensitive to everything. Given this, we will simplify the antibiotics to something that will only knockout her gram-negative or anaerobic adriel, i.e. we will switch to Cipro and Zyvox, Zyvox will be preferential, vancomycin given its more efficacious effects with soft tissue infections. Otherwise, the procedure and we will explore the wound today and most likely remove the mesh. She also needs a central line for IV maintenance. Potential risks of the procedure were reviewed including bleeding, infection, possibility of needing to leave the incision open for a secondary closure, the likelihood of recurrence of the hernia overtime were all reviewed, and the patient wishes to proceed. Wagner Lane MD /[id number]
--- NOTE | 2017-01-29 15:01 | PN ---
DATE OF SERVICE: 01/28/2017 The patient has been afebrile with stable vital signs. Overall, she appeared to be doing fairly well. We will begin some bowel stimulation today. Pharmacy reports some possible negative interactions with the Zyvox with her psych medications, and we will discontinue her Zyvox and add Septra to the regimen in addition to the Cipro based on the sensitivities of the Staph aureus, having had multiple cultures of this. Otherwise, we will maximize activity and work with pulmonary toilet. We plan to leave the wound open until and a delayed primary closure at that time. Wagner Lane MD /[id number]
--- NOTE | 2017-01-29 15:22 | PN ---
DATE OF SERVICE: 01/29/2017 The patient has been afebrile with stable vital signs. She is up and moving quite well. She did move her bowels twice yesterday. We will continue the Senna Plus at this point without additional specific bowel stimulation. The patient will have the wound closed tomorrow. Continue the IV antibiotics today as well as a BALLISTIC EXPERT, and likely switch over to oral pain medicine tomorrow after the delayed primary closure. Wagner Lane MD /[id number]
[2017-01-29] MEDS ORDERED: Haloperidol Lactate 5 MG/ML SDV IM STA (22:33)
[2017-01-29] MEDS: busPIRone 10 MG Tab PO SCH (22:44)
[2017-01-29] MEDS: lamoTRIgine 25 MG Tab PO SCH (22:44)
[2017-01-29] MEDS: Prazosin 1 MG Cap PO SCH (22:48)
[2017-01-29] MEDS: Acetaminophen/Codeine 300-30 MG Tab PO PRN (22:55)
[2017-01-30] MEDS: Acetaminophen/Codeine 300-30 MG Tab PO PRN ×4 (03:24→18:01)
[2017-01-30] MEDS ORDERED: Lidocaine 1% with EPINEPHrine 1:100,000 50 ML MDV ONE (06:43)
[2017-01-30] MEDS ORDERED: Meropenem 500 MG SDV ONE (06:43)
[2017-01-30] MEDS ORDERED: Bupivacaine 0.5% 50 ML MDV ONE (06:43)
[2017-01-30] MEDS ORDERED: Midazolam 1 MG/ML 2 ML SDV ONE (07:07)
[2017-01-30] MEDS ORDERED: Propofol 200 MG/20 ML SDV ONE (07:07)
[2017-01-30] MEDS ORDERED: fentaNYL 100 MCG/2 ML SDV ONE (07:07)
[2017-01-30] MEDS: Magnesium Hydroxide 400 MG/5 ML Susp 30 ML Cup PO SCH ×2 (08:43→21:36)
[2017-01-30] MEDS: Polyethylene Glycol 3350 Powder 119 GM Bottle PO SCH (08:43)
[2017-01-30] MEDS: Formoterol/Mometasone 200-5 MCG 8.8 GM Inhaler IH SCH ×2 (08:45→21:29)
[2017-01-30] MEDS: Pantoprazole 40 MG Tab.CR PO SCH ×2 (08:45→16:51)
[2017-01-30] MEDS: Folic Acid 1 MG Tab PO SCH (08:46)
[2017-01-30] MEDS: Ferrous Sulfate 325 MG Tab PO SCH (08:46)
[2017-01-30] MEDS: Ciprofloxacin in D5W 400 MG in Premix Bag 1 BAG IV SCH ×4 (08:46→19:56)
[2017-01-30] MEDS: Venlafaxine 100 MG Tab PO SCH ×3 (08:46→21:30)
[2017-01-30] MEDS: Calcium Carbonate 500 MG Tab.Chew PO SCH ×3 (08:46→16:51)
[2017-01-30] MEDS: Nicotine 14 MG/24 Hr Patch TRDERM SCH (08:47)
[2017-01-30] MEDS: Propranolol 80 MG Cap.ER PO SCH (08:47)
[2017-01-30] MEDS: Gabapentin 300 MG Cap PO SCH ×3 (08:47→21:32)
[2017-01-30] MEDS: Vitamin B Complex Tab PO SCH (08:48)
[2017-01-30] MEDS: Sulfamethoxazole/Trimethoprim 800-160 MG Tab PO SCH ×2 (08:48→21:32)
[2017-01-30] MEDS: Cholecalciferol (Vitamin D3) 1,000 Unit Tab PO SCH (08:48)
[2017-01-30] MEDS: Cyanocobalamin (Vitamin B12) 1,000 MCG Tab SL SCH ×2 (08:49→21:33)
[2017-01-30] MEDS: Pregabalin 100 MG Cap PO SCH ×2 (09:14→21:31)
[2017-01-30] MEDS: busPIRone 10 MG Tab PO SCH (21:29)
[2017-01-30] MEDS: lamoTRIgine 25 MG Tab PO SCH (21:31)
[2017-01-30] MEDS: Prazosin 1 MG Cap PO SCH (21:32)
[2017-01-31] MEDS: Acetaminophen/Codeine 300-30 MG Tab PO PRN ×3 (00:14→08:28)
[2017-01-31 07:14] VITALS: BP 131/88
[2017-01-31] MEDS: Formoterol/Mometasone 200-5 MCG 8.8 GM Inhaler IH SCH (07:19)
[2017-01-31] MEDS: Ciprofloxacin in D5W 400 MG in Premix Bag 1 BAG IV SCH ×2 (08:28)
[2017-01-31] MEDS: Calcium Carbonate 500 MG Tab.Chew PO SCH (08:32)
[2017-01-31] MEDS: Pantoprazole 40 MG Tab.CR PO SCH (08:32)
[2017-01-31] MEDS: Ferrous Sulfate 325 MG Tab PO SCH (08:32)
[2017-01-31] MEDS: Folic Acid 1 MG Tab PO SCH (08:33)
[2017-01-31] MEDS: Nicotine 14 MG/24 Hr Patch TRDERM SCH (08:33)
[2017-01-31] MEDS: Venlafaxine 100 MG Tab PO SCH (08:33)
[2017-01-31] MEDS: Magnesium Hydroxide 400 MG/5 ML Susp 30 ML Cup PO SCH (08:34)
[2017-01-31] MEDS: Propranolol 80 MG Cap.ER PO SCH (08:34)
[2017-01-31] MEDS: Polyethylene Glycol 3350 Powder 119 GM Bottle PO SCH (08:35)
[2017-01-31] MEDS: Sulfamethoxazole/Trimethoprim 800-160 MG Tab PO SCH (08:35)
[2017-01-31] MEDS: Gabapentin 300 MG Cap PO SCH (08:35)
[2017-01-31] MEDS: Cholecalciferol (Vitamin D3) 1,000 Unit Tab PO SCH (08:36)
[2017-01-31] MEDS: Vitamin B Complex Tab PO SCH (08:36)
[2017-01-31] MEDS: Cyanocobalamin (Vitamin B12) 1,000 MCG Tab SL SCH (08:36)
[2017-01-31] MEDS: Pregabalin 100 MG Cap PO SCH (08:49)
--- NOTE | 2017-02-01 13:58 | PN ---
DATE OF SERVICE: 01/30/2017 The patient has been afebrile with stable vital signs. She was quite confused overnight and did receive some Haldol, I think it is probably from the Dilaudid, we will discontinue it. We will give her Tylenol No. 3 for pain today. Her wound was partially closed, but the central part was not, I think it is flexible enough to close satisfactory. We will leave that pack open, and otherwise, she will likely be discharged home tomorrow assuming that her mental status becomes satisfactory. Wagner Lane MD /[id number]
--- NOTE | 2017-02-02 10:19 | OR ---
DATE OF PROCEDURE: 01/27/2017 PREOPERATIVE DIAGNOSES: 1. Intraabdominal abscess associated with infected intraperitoneal mesh. 2. Recurrent incisional hernia. 3. Limited peripheral venous access. OPERATIVE PROCEDURES: 1. Insertion of left subclavian vein triple-lumen catheter (69893). 2. Exploratory laparotomy with;. a. Removal of intraperitoneal mesh (99182). b. Drainage of intraabdominal abscess (88688). c. Closure of recurrent incisional hernia (86870). ANESTHESIA: General. INDICATION FOR PROCEDURE: The patient presented with an intraabdominal infection associated with recent mesh placement. This was drained in a somewhat temporizing manner per Dr. Arevalo. At this time, the patient is to undergo definitive treatment which would entail removal of the mesh and drainage of any additional intraabdominal abscess or infected fluid collections. She also has very limited peripheral venous access. The plan will be to proceed with a central line placement. Potential risks of the procedure including bleeding, infection, pneumohemothorax associated with the line placement, potential injury to underlying viscera, likelihood that recurrent hernia may well develop as the current repair will be concluded without a mesh repair, were all gone over and the patient wishes to proceed. DETAILS OF PROCEDURE: The patient was taken to the operating room and placed in the supine position. After general endotracheal anesthesia was induced, the upper chest and neck areas were initially prepped and draped. The left subclavian vein triple-lumen catheter was then placed without difficulty. Good in and outflow was noted. The ports were flushed with heparinized saline and catheter sutured to the skin with some 3-0 silk stitch. Subsequent chest x-ray showed good line position without complication. The abdomen was then prepped and draped. A Boston catheter had already been inserted. The previous sutures that had been placed over the incision were removed. The patient had one drain placed which was in the anterior abdominal location. The underlying fascia was then opened which revealed purulent fluid collection between the mesh and the underside of the abdominal wall. This was then drained. The mesh was then sequentially from its attachments to the abdominal wall and delivered from the field in an intact manner. At that point, the area was inspected. No further bleeding or other fluid collections were noted. Two Wilber-Melchor drains had been placed along the inferior aspect of the incision, one on each side which then drained the area, which at this point had a layer of omentum behind the abdominal wall where the abscess and mesh had been located. The hernia was then re-repaired with a running #2 Vicryl stitch. Skin and subcutaneous tissue were obviously felt to be at high risk for a wound infection, and these were left open for a planned delayed primary closure in 72 hours. The drain was sutured to the skin with some 3- 0 Vicryl stitch. The patient was taken to the recovery room in a satisfactory condition. There were no evident complications. Wagner Lane MD /[id number]
--- NOTE | 2017-02-02 12:21 | OR ---
DATE OF PROCEDURE: 01/30/2017 PREOPERATIVE DIAGNOSIS: Open abdominal incision. POSTOPERATIVE DIAGNOSIS: Open abdominal incision. PROCEDURE: Partial delayed primary closure of open abdominal incision. ANESTHESIA: Local plus IV sedation. INDICATION FOR PROCEDURE: This is a patient 72 hours status post an open laparotomy with removal of infected mesh and drainage of intraabdominal abscess. Plan is to proceed with a delayed primary closure at this time of the incision, which was left open at the time of the most recent surgery. The potential risks including bleeding and infection were discussed and the patient wishes to proceed. DETAILS OF PROCEDURE: The patient was taken to the operating room and placed in a supine position. IV sedation was administered after which the abdominal dressing was taken down and the wound was inspected and found to be fairly clean. The area was then prepped and draped, anesthetized with 1% lidocaine and mixed with Marcaine. Initially, the lower and upper aspects of the midline incision were closed with some 4-0 Vicryl stitch. The incision, otherwise, at this point was not satisfactorily mobile to reasonably close. Given this, the central portion was then packed open with some iodoform gauze and dressing applied and the patient was taken to the recovery room in satisfactory condition. Wagner Lane MD /[id number]
--- NOTE | 2017-02-04 13:26 | DISCH ---
PREOPERATIVE DIAGNOSIS: Infected intraabdominal mesh with associated intraabdominal infected fluid collection. SECONDARY DIAGNOSES: 1. Bariatric surgery status. 2. Status post incisional hernia repair. 3. Bipolar II disorder. 4. History of bowel obstruction. 5. Drug addiction and drug-seeking behavior. 6. History of idiopathic thrombocytopenic purpura. OPERATIVE PROCEDURE: 1. On 01/24/2017, exploratory laparotomy, drainage of intraabdominal abscess, and placement of wound VAC, was done by Dr. Arevalo. 2. On 01/27/2017 would be:. a. Insertion of left subclavian vein triple-lumen catheter. b. Exploratory laparotomy with:. I. Removal of intraperitoneal mesh. II.Drainage of intraabdominal abscess. III. Closure of recurrent incisional hernia. 3. On 01/30/2017, partial delayed primary closure of open abdominal incision. HOSPITAL COURSE: This is a 36-year-old female presenting with an infection in recently placed intraperitoneal mesh. This was initially drained per Dr. Arevalo, and then on 01/27/2017, a more definitive procedure was undertaken with removal of the mesh, drainage of additional intraperitoneal infected fluid collection, and re-closure of the recurrent hernia. At the time of delayed primary closure, the wound was felt to be not adequately clean or mobile enough to close all the way, so a partial closure was obtained at that time, and the wound otherwise will remain packed open. The patient did become somewhat confused during the course of the hospitalization, likely related to Dilaudid use, and was treated with some Haldol. She is now on Tylenol No. 3. All the cultures both pre-hospital and during the hospitalization showed Staph aureus sensitive to, among other things, Cipro. She will be sent home on Cipro 500 mg p.o. b.i.d. x7 days, and 40 additional Tylenol No. 3 will be written as well. Otherwise, continue home medications. Follow up with Dr. Lane in [facility] on 02/05/2017.
== END 2017-01-31 10:15 | disposition home or self-care (01) | DRG 354 ==
LOC: JP.2SS 12:02
PROVIDERS: ADMIT Surgery; ATTEND Surgery
PROC: 0W9G0ZX Drainage of Peritoneal Cavity, Open Approach, Diagnostic (ICD-10-PCS; principal; 2017-01-24)
PROC: 0WQF0ZZ Repair Abdominal Wall, Open Approach (ICD-10-PCS; 2017-01-24)
PROC: 0WPG0JZ Removal of Synthetic Substitute from Peritoneal Cavity, Open Approach (ICD-10-PCS; 2017-01-27)
PROC: 0WQFXZZ Repair Abdominal Wall, External Approach (ICD-10-PCS; 2017-01-30)
PROC: 2W13X6Z Compression of Abdominal Wall using Pressure Dressing (ICD-10-PCS; 2017-01-30)
DX: K43.2 Incisional hernia without obstruction or gangrene (principal); F31.81 Bipolar II disorder; T81.31XA Disruption of external operation (surgical) wound, not elsewhere classified, initial encounter; D89.3 Immune reconstitution syndrome; F11.21 Opioid dependence, in remission; F17.200 Nicotine dependence, unspecified, uncomplicated; Z88.6 Allergy status to analgesic agent; Z88.8 Allergy status to other drugs, medicaments and biological substances; Z79.899 Other long term (current) drug therapy; F41.8 Other specified anxiety disorders; G89.29 Other chronic pain; J30.2 Other seasonal allergic rhinitis; T85.9XXA Unspecified complication of internal prosthetic device, implant and graft, initial encounter
CPT/HCPCS: 36415; 71010; 71010-26; 74177; 74177-26; 80048; 80053; 83735; 84100; 85025; 87070; 87075; 87077; 87186; 87205; 88305; 94640-76; 94762; 97605; A9270-GY; C9113; J0330; J0744; J1100; J1170; J1630; J1642; J1956; J2020; J2185; J2250; J2405; J2543; J2704; J2710; J3010; J3370; J3410; J7030; J7042; J7050; J7120

== ENCOUNTER 2017-03-29 10:55 | Inpatient (IN) | payer MEDICARE, MEDICAID ==
[2017-03-29] MEDS ORDERED: Dextrose 5%-Lactated Ringers 1,000 ML IV ONE (12:30)
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
[2017-03-29] MEDS ORDERED: cefOXitin 2 GM in Sodium Chloride 0.9% 50 ML IV ONE (13:00)
[2017-03-29] MEDS ORDERED: Ondansetron 4 MG/2 ML SDV ONE ×2 (13:15→15:46)
[2017-03-29] MEDS ORDERED: Glycopyrrolate 0.2 MG/ML 5 ML MDV ONE (13:15)
[2017-03-29] MEDS ORDERED: Rocuronium 50 MG/5 ML Vial ONE (13:15)
[2017-03-29] MEDS ORDERED: Propofol 200 MG/20 ML SDV ONE (13:15)
[2017-03-29] MEDS ORDERED: Dexamethasone 4 MG/ML SDV ONE (13:15)
[2017-03-29] MEDS ORDERED: Neostigmine Methylsulfate 1 MG/ML 5 ML Syringe ONE (13:15)
[2017-03-29] MEDS ORDERED: Succinylcholine 200 MG/10 ML MDV ONE (13:15)
[2017-03-29] MEDS ORDERED: Naloxone 0.4 MG/ML SDV IV PRN (13:40)
[2017-03-29] MEDS ORDERED: Lactated Ringers 1,000 ML ONE (13:56)
[2017-03-29] MEDS ORDERED: hydrOXYzine HCl 100 MG/2 ML SDV IM PRN (15:38)
[2017-03-29] MEDS ORDERED: Pantoprazole 40 MG Vial IVPUSH SCH (15:45)
[2017-03-29] MEDS: fentaNYL/Normal Saline 600 MCG/30 ML PCA Vial IV PRN (16:00)
[2017-03-29] MEDS: D5 1/2 NS w/ 20 mEq/L KCl 1,000 ML IV SCH (16:48)
[2017-03-29] MEDS ORDERED: FLU Vacc QS 2017-18 (36mos UP)/PF 60 MCG/0.5 ML Syringe IM ONE (17:15)
[2017-03-29] MEDS: Nicotine 7 MG/24 Hr Patch TRDERM SCH (17:56)
[2017-03-29] MEDS: Prazosin 1 MG Cap PO SCH (18:28)
[2017-03-29] MEDS: Propranolol 80 MG Cap.ER PO SCH (18:28)
[2017-03-29] MEDS ORDERED: Lactated Ringers 1,000 ML IV SCH (18:30)
[2017-03-29] MEDS: Ondansetron 4 MG/2 ML SDV IVPUSH PRN (20:43)
[2017-03-29] MEDS ORDERED: Lactated Ringers 500 ML IV SCH (20:45)
[2017-03-30] MEDS ORDERED: Hetastarch in NS 500 ML IV ONE (00:20)
[2017-03-30] MEDS: D5 1/2 NS w/ 20 mEq/L KCl 1,000 ML IV SCH ×3 (02:29→16:20)
[2017-03-30] MEDS: Nicotine 7 MG/24 Hr Patch TRDERM SCH (08:10)
[2017-03-30] MEDS: Propranolol 80 MG Cap.ER PO SCH (08:10)
[2017-03-30] MEDS: fentaNYL/Normal Saline 600 MCG/30 ML PCA Vial IV PRN ×2 (08:37)
--- NOTE | 2017-03-30 10:33 | PCM.SURGPN ---
- General Info Date of Service: 03/30/17 Date of Surgery/Procedure: 03/29/17 POD#: 1 Post-Op Diagnosis: SBO Admission Diagnosis/Problem: Small bowel obstruction Functional Status: Reports: Pain Controlled, Ambulating, Urinating ([place]. Required two fluid boluses last night to maintain adequet urine output. ) - Review of Systems General: Reports: No Symptoms HEENT: Reports: No Symptoms Pulmonary: Reports: No Symptoms Cardiovascular: Reports: No Symptoms Gastrointestinal: Reports: No Symptoms, Other (She feels much better than she did preoperatively. ). Denies: Abdominal Pain Genitourinary: Reports: No Symptoms Musculoskeletal: Reports: No Symptoms Skin: Reports: No Symptoms Neurological: Reports: No Symptoms Psychiatric: Reports: No Symptoms - Patient Data Vitals - Most Recent: Last Vital Signs Temp 98.9 F 03/30/17 07:40 Pulse 105 H 03/30/17 07:40 Resp 18 03/30/17 07:40 BP 128/85 03/30/17 07:40 Pulse Ox 95 03/30/17 07:40 Weight - Most Recent: 170 lb 6.677 oz I&O - Last 24 Hours: Intake & Output 03/29/17 03/30/17 03/30/17 22:59 06:59 14:59 Intake Total 331 2191 Output Total 458 287 70 Balance -127 1904 -70 Lab Results Last 24 Hrs: Laboratory Results - last 24 hr 03/29/17 03/29/17 03/29/17 Range/Units 12:53 15:45 15:45 WBC 7.2 (4.5-11.0) K/uL RBC 5.95 H (3.30-5.50) M/uL Hgb 17.3 H D (12.0-15.0) g/dL Hct 52.3 H (36.0-48.0) % MCV 88 (80-98) fL MCH 29 (27-31) pg MCHC 33 (32-36) % Plt Count 81 L (150-400) K/uL Sodium 138 L (140-148) mmol/L Potassium 4.0 (3.6-5.2) mmol/L Chloride 103 (100-108) mmol/L Carbon Dioxide 25 (21-32) mmol/L Anion Gap 14.0 (5.0-14.0) mmol/L BUN 14 D (7-18) mg/dL Creatinine 1.2 H D (0.6-1.0) mg/dL Est Cr Clr Drug Dosing 53.74 mL/min Estimated GFR (MDRD) 50 L (>60) Glucose 182 H (74-106) mg/dL Calcium 8.3 L (8.5-10.1) mg/dL Blood Type A POSITIVE Gel Antibody Screen Negative 03/30/17 03/30/17 Range/Units 04:35 04:35 WBC 7.7 (4.5-11.0) K/uL RBC 4.60 (3.30-5.50) M/uL Hgb 13.4 D (12.0-15.0) g/dL Hct 40.6 (36.0-48.0) % MCV 88 (80-98) fL MCH 29 (27-31) pg MCHC 33 (32-36) % Plt Count 61 L (150-400) K/uL Sodium 134 L (140-148) mmol/L Potassium 4.2 (3.6-5.2) mmol/L Chloride 103 (100-108) mmol/L Carbon Dioxide 25 (21-32) mmol/L Anion Gap 10.2 (5.0-14.0) mmol/L BUN 14 (7-18) mg/dL Creatinine 0.8 (0.6-1.0) mg/dL Est Cr Clr Drug Dosing 80.60 mL/min Estimated GFR (MDRD) > 60 (>60) Glucose 181 H (74-106) mg/dL Calcium 7.3 L (8.5-10.1) mg/dL Blood Type Gel Antibody Screen Med Orders - Current: Current Medications Fentanyl Citrate (Fentanyl In Ns 20 Mcg/Ml 30 Ml Air Saw Operator) 0 mcg IV ASDIRECTED PRN; Protocol PRN Reason: PAIN Last Admin: 03/30/17 08:37 Dose: 600 mcg Hydroxyzine HCl (Vistaril) 50 mg IM Q4H PRN PRN Reason: Nausea Last Admin: 03/30/17 01:07 Dose: 50 mg Potassium Chloride/Dextrose/Sod Cl (D5 1/2 Ns W/ 20 Meq/L Kcl) 1,000 mls @ 150 mls/hr IV ASDIRECTED [facility]NA Last Admin: 03/30/17 09:15 Dose: 150 mls/hr Influenza Virus Vaccine (Fluzone Quad 6435-2914) 60 mcg IM .ONCE ONE Stop: 03/31/17 10:01 Naloxone HCl (Narcan) 0.1 mg IV ASDIRECTED PRN PRN Reason: RESP DISTRESS Nicotine (Habitrol) 7 mg TRDERM DAILY [facility] Last Admin: 03/30/17 08:10 Dose: 7 mg Ondansetron HCl (Zofran) 4 mg IVPUSH Q6H PRN PRN Reason: Nausea/Vomiting Last Admin: 03/29/17 20:43 Dose: 4 mg Pantoprazole Sodium (Protonix Iv) 40 mg IVPUSH Q24H [facility] Prazosin HCl (Minpress) 4 mg PO QPM [facility] Last Admin: 03/29/17 18:28 Dose: 4 mg Propranolol HCl (Inderal La) 80 mg PO DAILY [facility] Last Admin: 03/30/17 08:10 Dose: 80 mg Discontinued Medications Dexamethasone (Dexamethasone) Confirm Administered Dose 4 mg .ROUTE .STK-MED ONE Stop: 03/29/17 13:16 Fentanyl Citrate (Fentanyl) Confirm Administered Dose 500 mcg .ROUTE .STK-MED ONE Stop: 03/29/17 13:15 Glycopyrrolate (Robinul) Confirm Administered Dose 1 mg .ROUTE .STK-MED ONE Stop: 03/29/17 13:16 Cefoxitin Sodium 2 gm/ Sodium (Chloride) 50 mls @ 100 mls/hr IV ONCALL ONE Stop: 03/29/17 13:29 Last Admin: 03/29/17 12:33 Dose: 100 mls/hr Dextrose/Lactated Ringer's (Dextrose 5%-Lactated Ringers) 1,000 mls @ 500 mls/ hr IV ONETIME ONE Stop: 03/29/17 14:29 Last Admin: 03/29/17 12:32 Dose: 500 mls/hr Lactated Ringer's (Ringers, Lactated) 1,000 mls @ 100 mls/hr IV ASDIRECTED [facility]NA Lactated Ringer's (Ringers, Lactated) Confirm Administered Dose 1,000 mls @ as directed .ROUTE .STK-MED ONE Stop: 03/29/17 13:57 Lactated Ringer's (Ringers, Lactated) 500 mls @ 500 mls/hr IV .BOLUS YULIANA Stop: 03/29/17 21:46 Last Admin: 03/29/17 21:00 Dose: 500 mls/hr Hetastarch/Sodium Chloride (Hetastarch 6% In Normal Saline) 500 mls @ 500 mls/ hr IV ONETIME ONE Stop: 03/30/17 01:19 Last Admin: 03/30/17 00:33 Dose: 500 mls/hr Influenza Virus Vaccine (Pharmacy To Dose - Influenza Vaccine) 1 each IM ONETIME ONE Stop: 03/31/17 09:01 Influenza Virus Vaccine (Fluzone Quad 1282-1928) 60 mcg IM .ONCE ONE Stop: 03/29/17 17:16 Last Admin: 03/29/17 18:48 Dose: Not Given Neostigmine Methylsulfate (Neostigmine) Confirm Administered Dose 5 mg .ROUTE .STK-MED ONE Stop: 03/29/17 13:16 Ondansetron HCl (Zofran) Confirm Administered Dose 4 mg .ROUTE .STK-MED ONE Stop: 03/29/17 13:16 Ondansetron HCl (Zofran) Confirm Administered Dose 4 mg .ROUTE .STK-MED ONE Stop: 03/29/17 15:47 Last Admin: 03/29/17 15:57 Dose: 4 mg Pantoprazole Sodium (Protonix Iv) 40 mg IVPUSH DAILY [facility] Last Admin: 03/29/17 18:01 Dose: 40 mg Propofol (Diprivan 20 Ml) Confirm Administered Dose 200 mg .ROUTE .STK-MED ONE Stop: 03/29/17 13:16 Rocuronium [place] (Zemuron) Confirm Administered Dose 50 mg .ROUTE .STK-MED ONE Stop: 03/29/17 13:16 Succinylcholine Chloride (Quelicin) Confirm Administered Dose 200 mg .ROUTE .STK -MED ONE Stop: 03/29/17 13:16 - Exam Wound/Incisions: Dressing Dry and Intact Quality Assessment: Urine Catheter (D/C [place]. ), DVT Prophylaxis General: Alert, Oriented, Cooperative, No Acute Distress Lungs: Clear to Auscultation, Normal Respiratory Effort Cardiovascular: Regular Rate, Regular Rhythm GI/Abdominal Exam: Normal Bowel Sounds, Soft Extremities: Normal Inspection Skin: Warm, Dry, Intact Psy/Mental Status: Alert, Normal Affect - Problem List & Annotations (1) Small bowel obstruction SNOMED Code(s): 498627061 Code(s): K56.609 - UNSP INTESTNL OBST, UNSP TO PARTIAL VERSUS COMPLETE OBST Status: Acute Current Visit: Yes - Problem List Review Problem List Initiated/Reviewed/Updated: Yes - My Orders Last 24 Hours: Active Orders 24 hr Category Date Time Status Patient Status [ADT] Routine ADT 03/29/17 15:32 Active Ambulate [RC] ASDIRECTED Care 03/29/17 15:35 Active Antiembolic Devices [RC] .Routine Care 03/29/17 15:37 Active Drain Management [RC] QSHIFT Care 03/29/17 15:36 Active Gastrointestinal Tube Mgmt [RC] ASDIRECTED Care 03/29/17 15:36 Active Intake and Output [RC] Q4HR Care 03/29/17 15:36 Active Notify Provider Intake and Out [RC] PRN Care 03/29/17 15:36 Active Notify Provider Vital Signs [RC] PRN Care 03/29/17 15:36 Active Oxygen Therapy [RC] PRN Care 03/29/17 15:32 Active Oxygen Therapy [RC] PRN Care 03/29/17 15:35 Active Oxygen Therapy [RC] PRN Care 03/29/17 15:38 Active Pulse Oximetry [RC] CONTINUOUS Care 03/29/17 15:36 Active RT Incentive Spirometry [RC] ASDIRECTED Care 03/29/17 15:35 Active Up With Assistance [RC] ASDIRECTED Care 03/29/17 15:35 Active Up to Chair [RC] ASDIRECTED Care 03/29/17 15:35 Active Urinary Catheter Removal [RC] Per Unit Routine Care 03/30/17 10:26 Ordered VTE/DVT Education [RC] Click to Edit Care 03/29/17 15:37 Active Vital Signs [RC] PER UNIT ROUTINE Care 03/29/17 15:32 Active Vital Signs [RC] PER UNIT ROUTINE Care 03/29/17 15:35 Active Vital Signs [RC] PER UNIT ROUTINE Care 03/29/17 15:38 Active Respiratory Care Assess and Treatment [CONS] Routine Cons 03/29/17 15:38 Active Nothing Per Oral Diet [DIET] Diet 03/29/17 Dinner Active BASIC METABOLIC PANEL,BMP [CHEM] DAILY Lab 03/31/17 15:45 Ordered BASIC METABOLIC PANEL,BMP [CHEM] DAILY Lab 04/01/17 15:45 Ordered CBC W/O DIFF,HEMOGRAM [HEME] DAILY Lab 03/31/17 15:45 Ordered CBC W/O DIFF,HEMOGRAM [HEME] DAILY Lab 04/01/17 15:45 Ordered D5 1/2 NS w/ 20 mEq/L KCl 1,000 ml Med 03/29/17 15:45 Active IV ASDIRECTED FLU Vacc [id number] 36Mos UP/PF [Fluzone Quad 9480-1135] Med 03/31/17 10:00 Once 60 mcg IM .ONCE ONE Naloxone [Narcan] Med 03/29/17 13:40 Active 0.1 mg IV ASDIRECTED PRN Nicotine [Habitrol] Med 03/29/17 15:30 Active 7 mg TRDERM DAILY Ondansetron [Zofran] Med 03/29/17 15:38 Active 4 mg IVPUSH Q6H PRN Pantoprazole [ProTONIX IV] Med 03/30/17 18:00 Active 40 mg IVPUSH Q24H Prazosin [Minpress] Med 03/29/17 17:00 Active 4 mg PO QPM Propranolol [Inderal LA] Med 03/29/17 15:30 Active 80 mg PO DAILY fentaNYL/Normal Saline [fentaNYL in NS 20 MCG/ML 30 ML Med 03/29/17 13:40 Active BUSINESS PARTNER] 0 mcg IV ASDIRECTED PRN hydrOXYzine HCl [Vistaril] Med 03/29/17 15:38 Active 50 mg IM Q4H PRN Abdominal Binder [OM.PC] Per Unit Routine Oth 03/29/17 15:36 Ordered DVT/VTE Prophylaxis Reflex [OM.PC] Per Unit Routine Oth 03/29/17 15:37 Ordered SCD [Sequential Compression Device] [OM.PC] Routine Oth 03/29/17 15:42 Ordered Resuscitation Status Routine Resus Stat 03/29/17 15:32 Ordered Medication Orders Fentanyl Citrate (Fentanyl In Ns 20 Mcg/Ml 30 Ml Air Saw Operator) 0 mcg IV ASDIRECTED PRN; Protocol PRN Reason: PAIN Last Admin: 03/30/17 08:37 Dose: 600 mcg Admin: 03/30/17 00:00 Dose: 600 mcg Hydroxyzine HCl (Vistaril) 50 mg IM Q4H PRN PRN Reason: Nausea Last Admin: 03/30/17 01:07 Dose: 50 mg Potassium Chloride/Dextrose/Sod Cl (D5 1/2 Ns W/ 20 Meq/L Kcl) 1,000 mls @ 150 mls/hr IV ASDIRECTED [facility] Last Admin: 03/30/17 09:15 Dose: 150 mls/hr Infusion: 03/30/17 09:10 Dose: 150 mls/hr Admin: 03/30/17 02:29 Dose: 150 mls/hr Infusion: 03/29/17 23:29 Dose: 150 mls/hr Admin: 03/29/17 16:48 Dose: 150 mls/hr Influenza Virus Vaccine (Fluzone Quad 1307-4800) 60 mcg IM .ONCE ONE Stop: 03/31/17 10:01 Naloxone HCl (Narcan) 0.1 mg IV ASDIRECTED PRN PRN Reason: RESP DISTRESS Nicotine (Habitrol) 7 mg TRDERM DAILY [facility] Last Admin: 03/30/17 08:10 Dose: 7 mg Admin: 03/29/17 17:56 Dose: 7 mg Ondansetron HCl (Zofran) 4 mg IVPUSH Q6H PRN PRN Reason: Nausea/Vomiting Last Admin: 03/29/17 20:43 Dose: 4 mg Pantoprazole Sodium (Protonix Iv) 40 mg IVPUSH Q24H [facility] Prazosin HCl (Minpress) 4 mg PO QPM [facility] Last Admin: 03/29/17 18:28 Dose: 4 mg Propranolol HCl (Inderal La) 80 mg PO DAILY [facility] Last Admin: 03/30/17 08:10 Dose: 80 mg Admin: 03/29/17 18:28 Dose: 80 mg - Assessment Assessment (Free Text/Narrative):: Doing well. - Plan Plan (Free Text/Narrative):: D/C [place]. 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 She pulled her NG, leave it out.
[2017-03-30] MEDS: Prazosin 1 MG Cap PO SCH (16:23)
[2017-03-30] MEDS: Pantoprazole 40 MG Vial IVPUSH SCH (17:39)
[2017-03-31] MEDS: Ondansetron 4 MG/2 ML SDV IVPUSH PRN (02:53)
[2017-03-31] MEDS: D5 1/2 NS w/ 20 mEq/L KCl 1,000 ML IV SCH ×3 (05:59→21:58)
[2017-03-31] MEDS: fentaNYL/Normal Saline 600 MCG/30 ML PCA Vial IV PRN (08:18)
[2017-03-31] MEDS: Nicotine 7 MG/24 Hr Patch TRDERM SCH (08:31)
[2017-03-31] MEDS: Propranolol 80 MG Cap.ER PO SCH (08:32)
--- NOTE | 2017-03-31 08:41 | PCM.SURGPN ---
- General Info Date of Service: 03/31/17 Date of Surgery/Procedure: 03/29/17 POD#: 2 Post-Op Diagnosis: SBO Admission Diagnosis/Problem: Small bowel obstruction Functional Status: Reports: Pain Controlled, Ambulating, Urinating, Incentive Spirometry - Review of Systems General: Reports: No Symptoms HEENT: Reports: No Symptoms Pulmonary: Reports: No Symptoms Cardiovascular: Reports: No Symptoms Gastrointestinal: Reports: Other (A little bloated. ). Denies: Flatus, Nausea, Vomiting Genitourinary: Reports: No Symptoms Musculoskeletal: Reports: No Symptoms Skin: Reports: No Symptoms Neurological: Reports: No Symptoms Psychiatric: Reports: No Symptoms - Patient Data Vitals - Most Recent: Last Vital Signs Temp 97.4 F 03/31/17 07:41 Pulse 90 03/31/17 07:41 Resp 16 03/31/17 07:41 BP 108/68 03/31/17 07:41 Pulse Ox 98 03/31/17 08:18 Weight - Most Recent: 170 lb 6.677 oz I&O - Last 24 Hours: Intake & Output 03/30/17 03/31/17 03/31/17 22:59 06:59 14:59 Intake Total 1639 402 Output Total 250 660 400 Balance 1389 -258 -400 Lab Results Last 24 Hrs: Laboratory Results - last 24 hr 03/31/17 03/31/17 Range/Units 05:45 05:45 WBC 12.3 H (4.5-11.0) K/uL RBC 4.18 (3.30-5.50) M/uL Hgb 12.3 (12.0-15.0) g/dL Hct 36.7 (36.0-48.0) % MCV 88 (80-98) fL MCH 29 (27-31) pg MCHC 34 (32-36) % Plt Count 70 L (150-400) K/uL Sodium 136 L (140-148) mmol/L Potassium 3.6 (3.6-5.2) mmol/L Chloride 103 (100-108) mmol/L Carbon Dioxide 24 (21-32) mmol/L Anion Gap 12.6 (5.0-14.0) mmol/L BUN 9 (7-18) mg/dL Creatinine 0.6 (0.6-1.0) mg/dL Est Cr Clr Drug Dosing 107.47 mL/min Estimated GFR (MDRD) > 60 (>60) Glucose 120 H (74-106) mg/dL Calcium 7.8 L (8.5-10.1) mg/dL Med Orders - Current: Current Medications Fentanyl Citrate (Fentanyl In Ns 20 Mcg/Ml 30 Ml Fine Wire Drawer) 0 mcg IV ASDIRECTED PRN; Protocol PRN Reason: PAIN Last Admin: 03/31/17 08:18 Dose: 600 mcg Hydroxyzine HCl (Vistaril) 50 mg IM Q4H PRN PRN Reason: Nausea Last Admin: 03/30/17 01:07 Dose: 50 mg Potassium Chloride/Dextrose/Sod Cl (D5 1/2 Ns W/ 20 Meq/L Kcl) 1,000 mls @ 150 mls/hr IV ASDIRECTED YULIANA Last Admin: 03/31/17 05:59 Dose: 150 mls/hr Influenza Virus Vaccine (Fluzone Quad 2412-9640) 60 mcg IM .ONCE ONE Stop: 03/31/17 10:01 Naloxone HCl (Narcan) 0.1 mg IV ASDIRECTED PRN PRN Reason: RESP DISTRESS Nicotine (Habitrol) 7 mg TRDERM DAILY [facility] Last Admin: 03/31/17 08:31 Dose: 7 mg Ondansetron HCl (Zofran) 4 mg IVPUSH Q6H PRN PRN Reason: Nausea/Vomiting Last Admin: 03/31/17 02:53 Dose: 4 mg Pantoprazole Sodium (Protonix Iv) 40 mg IVPUSH Q24H [facility] Last Admin: 03/30/17 17:39 Dose: 40 mg Prazosin HCl (Minpress) 4 mg PO QPM [facility] Last Admin: 03/30/17 16:23 Dose: 4 mg Propranolol HCl (Inderal La) 80 mg PO DAILY [facility] Last Admin: 03/31/17 08:32 Dose: 80 mg Discontinued Medications Dexamethasone (Dexamethasone) Confirm Administered Dose 4 mg .ROUTE .STK-MED ONE Stop: 03/29/17 13:16 Fentanyl Citrate (Fentanyl) Confirm Administered Dose 500 mcg .ROUTE .STK-MED ONE Stop: 03/29/17 13:15 Glycopyrrolate (Robinul) Confirm Administered Dose 1 mg .ROUTE .STK-MED ONE Stop: 03/29/17 13:16 Cefoxitin Sodium 2 gm/ Sodium (Chloride) 50 mls @ 100 mls/hr IV ONCALL ONE Stop: 03/29/17 13:29 Last Admin: 03/29/17 12:33 Dose: 100 mls/hr Dextrose/Lactated Ringer's (Dextrose 5%-Lactated Ringers) 1,000 mls @ 500 mls/ hr IV ONETIME ONE Stop: 03/29/17 14:29 Last Admin: 03/29/17 12:32 Dose: 500 mls/hr Lactated Ringer's (Ringers, Lactated) 1,000 mls @ 100 mls/hr IV ASDIRECTED YULIANA Lactated Ringer's (Ringers, Lactated) Confirm Administered Dose 1,000 mls @ as directed .ROUTE .STK-MED ONE Stop: 03/29/17 13:57 Lactated Ringer's (Ringers, Lactated) 500 mls @ 500 mls/hr IV .BOLUS YULIANA Stop: 03/29/17 21:46 Last Admin: 03/29/17 21:00 Dose: 500 mls/hr Hetastarch/Sodium Chloride (Hetastarch 6% In Normal Saline) 500 mls @ 500 mls/ hr IV ONETIME ONE Stop: 03/30/17 01:19 Last Admin: 03/30/17 00:33 Dose: 500 mls/hr Influenza Virus Vaccine (Pharmacy To Dose - Influenza Vaccine) 1 each IM ONETIME ONE Stop: 03/31/17 09:01 Influenza Virus Vaccine (Fluzone Quad 4910-3704) 60 mcg IM .ONCE ONE Stop: 03/29/17 17:16 Last Admin: 03/29/17 18:48 Dose: Not Given Neostigmine Methylsulfate (Neostigmine) Confirm Administered Dose 5 mg .ROUTE .STK-MED ONE Stop: 03/29/17 13:16 Ondansetron HCl (Zofran) Confirm Administered Dose 4 mg .ROUTE .STK-MED ONE Stop: 03/29/17 13:16 Ondansetron HCl (Zofran) Confirm Administered Dose 4 mg .ROUTE .STK-MED ONE Stop: 03/29/17 15:47 Last Admin: 03/29/17 15:57 Dose: 4 mg Pantoprazole Sodium (Protonix Iv) 40 mg IVPUSH DAILY [facility] Last Admin: 03/29/17 18:01 Dose: 40 mg Propofol (Diprivan 20 Ml) Confirm Administered Dose 200 mg .ROUTE .STK-MED ONE Stop: 03/29/17 13:16 Rocuronium [place] (Zemuron) Confirm Administered Dose 50 mg .ROUTE .STK-MED ONE Stop: 03/29/17 13:16 Succinylcholine Chloride (Quelicin) Confirm Administered Dose 200 mg .ROUTE .STK -MED ONE Stop: 03/29/17 13:16 - Exam Quality Assessment: DVT Prophylaxis General: Alert, Oriented, Cooperative, No Acute Distress Lungs: Clear to Auscultation, Normal Respiratory Effort Cardiovascular: Regular Rate, Regular Rhythm GI/Abdominal Exam: Normal Bowel Sounds, Non-Tender, No Distention Extremities: Normal Inspection, Normal Range of Motion, No Pedal Edema Skin: Warm, Dry, Intact Neurological: No New Focal Deficit Psy/Mental Status: Alert, Normal Affect, Normal Mood - Problem List & Annotations (1) Small bowel obstruction SNOMED Code(s): 720871258 Code(s): K56.609 - UNSP INTESTNL OBST, UNSP TO PARTIAL VERSUS COMPLETE OBST Status: Acute Current Visit: Yes - Problem List Review Problem List Initiated/Reviewed/Updated: Yes - My Orders Last 24 Hours: Active Orders 24 hr Category Date Time Status Wound Care [RC] Q12H Care 03/30/17 12:00 Active BASIC METABOLIC PANEL,BMP [CHEM] DAILY Lab 04/01/17 05:00 Ordered BASIC METABOLIC PANEL,BMP [CHEM] DAILY Lab 04/02/17 05:00 Ordered CBC W/O DIFF,HEMOGRAM [HEME] DAILY Lab 04/01/17 05:11 Ordered CBC W/O DIFF,HEMOGRAM [HEME] DAILY Lab 04/02/17 05:11 Ordered FLU Vacc [id number] 36Mos UP/PF [Fluzone Quad 5468-6277] Med 03/31/17 10:00 Once 60 mcg IM .ONCE ONE Pantoprazole [ProTONIX IV] Med 03/30/17 18:00 Active 40 mg IVPUSH Q24H Medication Orders Fentanyl Citrate (Fentanyl In Ns 20 Mcg/Ml 30 Ml Fine Wire Drawer) 0 mcg IV ASDIRECTED PRN; Protocol PRN Reason: PAIN Last Admin: 03/31/17 08:18 Dose: 600 mcg Admin: 03/30/17 08:37 Dose: 600 mcg Admin: 03/30/17 00:00 Dose: 600 mcg Admin: 03/29/17 16:00 Dose: 600 mcg Hydroxyzine HCl (Vistaril) 50 mg IM Q4H PRN PRN Reason: Nausea Last Admin: 03/30/17 01:07 Dose: 50 mg Potassium Chloride/Dextrose/Sod Cl (D5 1/2 Ns W/ 20 Meq/L Kcl) 1,000 mls @ 150 mls/hr IV ASDIRECTED [facility]NA Last Admin: 03/31/17 05:59 Dose: 150 mls/hr Infusion: 03/30/17 23:01 Dose: 150 mls/hr Admin: 03/30/17 16:20 Dose: 150 mls/hr Infusion: 03/30/17 15:56 Dose: 150 mls/hr Admin: 03/30/17 09:15 Dose: 150 mls/hr Infusion: 03/30/17 09:10 Dose: 150 mls/hr Admin: 03/30/17 02:29 Dose: 150 mls/hr Infusion: 03/29/17 23:29 Dose: 150 mls/hr Admin: 03/29/17 16:48 Dose: 150 mls/hr Influenza Virus Vaccine (Fluzone Quad 6798-2049) 60 mcg IM .ONCE ONE Stop: 03/31/17 10:01 Naloxone HCl (Narcan) 0.1 mg IV ASDIRECTED PRN PRN Reason: RESP DISTRESS Nicotine (Habitrol) 7 mg TRDERM DAILY [facility] Last Admin: 03/31/17 08:31 Dose: 7 mg Admin: 03/30/17 08:10 Dose: 7 mg Admin: 03/29/17 17:56 Dose: 7 mg Ondansetron HCl (Zofran) 4 mg IVPUSH Q6H PRN PRN Reason: Nausea/Vomiting Last Admin: 03/31/17 02:53 Dose: 4 mg Admin: 03/29/17 20:43 Dose: 4 mg Pantoprazole Sodium (Protonix Iv) 40 mg IVPUSH Q24H [facility] Last Admin: 03/30/17 17:39 Dose: 40 mg Prazosin HCl (Minpress) 4 mg PO QPM [facility] Last Admin: 03/30/17 16:23 Dose: 4 mg Admin: 03/29/17 18:28 Dose: 4 mg Propranolol HCl (Inderal La) 80 mg PO DAILY [facility] Last Admin: 03/31/17 08:32 Dose: 80 mg Admin: 03/30/17 08:10 Dose: 80 mg Admin: 03/29/17 18:28 Dose: 80 mg - Assessment Assessment (Free Text/Narrative):: Doing well. Waiting for GI recovery. - Plan Plan (Free Text/Narrative):: Encourage walking. Continue present cares.
--- NOTE | 2017-03-31 09:40 | OR ---
DATE OF PROCEDURE: 03/29/2017 PREOPERATIVE DIAGNOSIS: Small bowel obstruction. POSTOPERATIVE DIAGNOSIS: Small bowel obstruction secondary to volvulus and adhesions. PROCEDURE: Exploratory laparotomy, reduction of volvulus, excision with primary anastomosis of two small bowel strictures. SURGEON: Rigo Tillman MD. ANESTHESIA: General endotracheal. INDICATION: This 36-year-old female has had multiple prior abdominal operations. These include a section, a Nabil-en-Y gastric bypass, cholecystectomy, repair of incisional hernia with mesh, removal of the mesh with drainage of intraabdominal abscess and multiple exploratory laparotomies with lysis of adhesions. She presents now with a week of abdominal pain with nausea and vomiting plus obstipation, which this morning became quite severe causing her to come to the hospital in [place], [place]. CAT scan there showed her to have a small bowel obstruction. Her small bowel was markedly dilated and there was question of possible ischemia. She wanted to come back to [place], so was referred down here by ambulance. Here she was found to be diffusely tender. No obvious peritoneal signs. I counseled her for an exploratory laparotomy, including risks and alternatives, and she gave her informed consent to proceed. DESCRIPTION OF PROCEDURE: After adequate general endotracheal anesthesia was obtained, a [place] catheter was placed. Her abdomen was prepped and draped in the usual sterile fashion. The leg compression stockings were in place and used during the entire procedure. Time-out was held. An incision was made in her infraumbilical midline and this was carefully carried deep to the fascia. The fascia was incised and the underlying peritoneum was elevated and incised. We were able to enter the abdomen easily. We extended the incision proximally and distally to about the level of the umbilicus and usp to the pubis. Ultimately, we extended the incision up into the epigastrium. It was noted that the small bowel was markedly dilated. All appeared to be viable. It appeared to have a volvulus. We de-torsed it. We then identified two areas of stricture. We freed these up. It appeared that they were too tight and should be removed. We were able to identify normal caliber bowel distally. We made an enterotomy and aspirated 1300 mL of fluid from the small bowel to decompress it. We then excised the stricture associated with this site. This was done by using the MOON stapler with green loads. We used the green loads because the bowel was markedly thickened. The bowel was divided proximally and distally to the stricture and then the intervening mesentery was divided with the MOON. The specimen was sent to the laboratory. We then made the anastomosis by opening the antimesenteric end of each staple line and approximating the two portions of small bowel with a green load. This was an 80-mm MOON. The distal end of the staple line was bolstered with a 3-0 silk suture. The stapler was removed and then the opening through which the staple had been placed was closed with another 80 mm green MOON load. This last staple line was oversewn with 3-0 silk Lembert stitches. The second stricture was then removed. This was done in the same manner by dividing the bowel proximal and distal to the stricture using the MOON with a green load proximally and a blue load distally as the distal bowel appeared quite unremarkable. The intervening mesentery was then divided with the stapler and the specimen was delivered from the field. We then approximated the bowel again by approximating the antimesenteric border to the antimesenteric border using a green load with the MOON 80-mm stapler. The distal end of this staple line was bolstered with 3-0 GI silk. The stapler was removed and the opening through which the stapler had been placed was closed with a MOON 80 mm green load. This staple line then was also oversewn with Lembert stitches of 3-0 GI silk. We then copiously irrigate the abdomen with multiple liters of warm normal saline. We then closed the mesenteric defect at the two resection sites with 3-0 Vicryl suture. Tisseel fibrin sealant was placed about each of the anastomoses. The bowel was then returned to the abdomen. A Wilber-Melchor drain was obtained and brought out through a separate stab wound to the left inferiorly, was placed in the abdomen going down into the pelvis. We then obtained Interceed, which we placed over the bowel, and then closed the fascia with a running stitch of #2 Vicryl. The wound was packed open with 1-inch iodoform gauze and a sterile dressing applied. On top of this an abdominal binder was placed. Anesthesia was reversed. She was extubated and brought to the recovery room in fair condition. Rigo Tillman MD /[id number] MTDD
[2017-03-31] MEDS ORDERED: FLU Vacc QS 2017-18 (36mos UP)/PF 60 MCG/0.5 ML Syringe IM ONE (10:00)
[2017-03-31] MEDS: Pantoprazole 40 MG Vial IVPUSH SCH (17:31)
[2017-03-31] MEDS: Prazosin 1 MG Cap PO SCH (17:31)
[2017-04-01] MEDS: D5 1/2 NS w/ 20 mEq/L KCl 1,000 ML IV SCH ×2 (04:43→19:27)
--- NOTE | 2017-04-01 06:40 | PCM.SURGPN ---
- General Info Date of Service: 04/01/17 Date of Surgery/Procedure: 03/29/17 POD#: 3 Post-Op Diagnosis: SBO Admission Diagnosis/Problem: Small bowel obstruction Functional Status: Reports: Pain Controlled, Tolerating Diet (Started clear liquids), Ambulating, Urinating, Incentive Spirometry - Review of Systems General: Reports: No Symptoms HEENT: Reports: No Symptoms Pulmonary: Reports: No Symptoms Cardiovascular: Reports: No Symptoms Gastrointestinal: Reports: No Symptoms, Flatus. Denies: Nausea, Vomiting Genitourinary: Reports: No Symptoms Musculoskeletal: Reports: No Symptoms Skin: Reports: No Symptoms Neurological: Reports: No Symptoms Psychiatric: Reports: No Symptoms - Patient Data Vitals - Most Recent: Last Vital Signs Temp 99.6 F 04/01/17 02:10 Pulse 88 04/01/17 02:10 Resp 18 04/01/17 02:10 BP 95/50 L 04/01/17 02:13 Pulse Ox 98 04/01/17 02:10 Weight - Most Recent: 170 lb 6.677 oz I&O - Last 24 Hours: Intake & Output 03/31/17 03/31/17 04/01/17 14:59 22:59 06:59 Intake Total 1151 1654 Output Total 800 400 690 Balance -800 751 964 Lab Results Last 24 Hrs: Laboratory Results - last 24 hr 04/01/17 04/01/17 Range/Units 04:50 04:50 WBC 9.0 (4.5-11.0) K/uL RBC 3.61 (3.30-5.50) M/uL Hgb 10.6 L (12.0-15.0) g/dL Hct 32.1 L (36.0-48.0) % MCV 89 (80-98) fL MCH 29 (27-31) pg MCHC 33 (32-36) % Plt Count 83 L (150-400) K/uL Sodium 138 L (140-148) mmol/L Potassium 3.4 L (3.6-5.2) mmol/L Chloride 107 (100-108) mmol/L Carbon Dioxide 23 (21-32) mmol/L Anion Gap 11.4 (5.0-14.0) mmol/L BUN 7 (7-18) mg/dL Creatinine 0.6 (0.6-1.0) mg/dL Est Cr Clr Drug Dosing 106.94 mL/min Estimated GFR (MDRD) > 60 (>60) Glucose 127 H (74-106) mg/dL Calcium 7.6 L (8.5-10.1) mg/dL Med Orders - Current: Current Medications Fentanyl Citrate (Fentanyl In Ns 20 Mcg/Ml 30 Ml News Editor) 0 mcg IV ASDIRECTED PRN; Protocol PRN Reason: PAIN Last Admin: 03/31/17 08:18 Dose: 600 mcg Hydroxyzine HCl (Vistaril) 50 mg IM Q4H PRN PRN Reason: Nausea Last Admin: 03/30/17 01:07 Dose: 50 mg Naloxone HCl (Narcan) 0.1 mg IV ASDIRECTED PRN PRN Reason: RESP DISTRESS Nicotine (Habitrol) 7 mg TRDERM DAILY [facility] Last Admin: 03/31/17 08:31 Dose: 7 mg Ondansetron HCl (Zofran) 4 mg IVPUSH Q6H PRN PRN Reason: Nausea/Vomiting Last Admin: 03/31/17 02:53 Dose: 4 mg Pantoprazole Sodium (Protonix Iv) 40 mg IVPUSH Q24H [facility] Last Admin: 03/31/17 17:31 Dose: 40 mg Prazosin HCl (Minpress) 4 mg PO QPM [facility] Last Admin: 03/31/17 17:31 Dose: 4 mg Propranolol HCl (Inderal La) 80 mg PO DAILY [facility] Last Admin: 03/31/17 08:32 Dose: 80 mg Discontinued Medications Dexamethasone (Dexamethasone) Confirm Administered Dose 4 mg .ROUTE .STK-MED ONE Stop: 03/29/17 13:16 Fentanyl Citrate (Fentanyl) Confirm Administered Dose 500 mcg .ROUTE .STK-MED ONE Stop: 03/29/17 13:15 Glycopyrrolate (Robinul) Confirm Administered Dose 1 mg .ROUTE .STK-MED ONE Stop: 03/29/17 13:16 Cefoxitin Sodium 2 gm/ Sodium (Chloride) 50 mls @ 100 mls/hr IV ONCALL ONE Stop: 03/29/17 13:29 Last Admin: 03/29/17 12:33 Dose: 100 mls/hr Dextrose/Lactated Ringer's (Dextrose 5%-Lactated Ringers) 1,000 mls @ 500 mls/ hr IV ONETIME ONE Stop: 03/29/17 14:29 Last Admin: 03/29/17 12:32 Dose: 500 mls/hr Lactated Ringer's (Ringers, Lactated) 1,000 mls @ 100 mls/hr IV ASDIRECTED [facility] Lactated Ringer's (Ringers, Lactated) Confirm Administered Dose 1,000 mls @ as directed .ROUTE .STK-MED ONE Stop: 03/29/17 13:57 Potassium Chloride/Dextrose/Sod Cl (D5 1/2 Ns W/ 20 Meq/L Kcl) 1,000 mls @ 150 mls/hr IV ASDIRECTED [facility] Last Admin: 04/01/17 04:43 Dose: 150 mls/hr Lactated Ringer's (Ringers, Lactated) 500 mls @ 500 mls/hr IV .BOLUS [facility] Stop: 03/29/17 21:46 Last Admin: 03/29/17 21:00 Dose: 500 mls/hr Hetastarch/Sodium Chloride (Hetastarch 6% In Normal Saline) 500 mls @ 500 mls/ hr IV ONETIME ONE Stop: 03/30/17 01:19 Last Admin: 03/30/17 00:33 Dose: 500 mls/hr Influenza Virus Vaccine (Pharmacy To Dose - Influenza Vaccine) 1 each IM ONETIME ONE Stop: 03/31/17 09:01 Influenza Virus Vaccine (Fluzone Quad [id number]) 60 mcg IM .ONCE ONE Stop: 03/29/17 17:16 Last Admin: 03/29/17 18:48 Dose: Not Given Influenza Virus Vaccine (Fluzone Quad [id number]) 60 mcg IM .ONCE ONE Stop: 03/31/17 10:01 Last Admin: 03/31/17 14:37 Dose: 60 mcg Neostigmine Methylsulfate (Neostigmine) Confirm Administered Dose 5 mg .ROUTE .STK-MED ONE Stop: 03/29/17 13:16 Ondansetron HCl (Zofran) Confirm Administered Dose 4 mg .ROUTE .STK-MED ONE Stop: 03/29/17 13:16 Ondansetron HCl (Zofran) Confirm Administered Dose 4 mg .ROUTE .STK-MED ONE Stop: 03/29/17 15:47 Last Admin: 03/29/17 15:57 Dose: 4 mg Pantoprazole Sodium (Protonix Iv) 40 mg IVPUSH DAILY [facility] Last Admin: 03/29/17 18:01 Dose: 40 mg Propofol (Diprivan 20 Ml) Confirm Administered Dose 200 mg .ROUTE .STK-MED ONE Stop: 03/29/17 13:16 Rocuronium [place] (Zemuron) Confirm Administered Dose 50 mg .ROUTE .STK-MED ONE Stop: 03/29/17 13:16 Succinylcholine Chloride (Quelicin) Confirm Administered Dose 200 mg .ROUTE .STK -MED ONE Stop: 03/29/17 13:16 - Exam Wound/Incisions: Healing Well (Secondary intention. ) Quality Assessment: DVT Prophylaxis (No lovenox due to low platelets. ) General: Alert, Oriented Lungs: Clear to Auscultation, Normal Respiratory Effort Cardiovascular: Regular Rate, Regular Rhythm GI/Abdominal Exam: Normal Bowel Sounds, Soft, Non-Tender, No Distention Extremities: Normal Inspection, Normal Range of Motion, No Pedal Edema Skin: Warm, Dry, Intact Neurological: No New Focal Deficit Psy/Mental Status: Alert, Normal Affect, Normal Mood - Problem List & Annotations (1) Small bowel obstruction SNOMED Code(s): 381132161 Code(s): K56.609 - UNSP INTESTNL OBST, UNSP TO PARTIAL VERSUS COMPLETE OBST Status: Acute Current Visit: Yes - Problem List Review Problem List Initiated/Reviewed/Updated: Yes - My Orders Last 24 Hours: Active Orders 24 hr Category Date Time Status Clear Liquid Diet [DIET] Diet 03/31/17 Dinner Active BASIC METABOLIC PANEL,BMP [CHEM] DAILY Lab 04/02/17 05:00 Ordered CBC W/O DIFF,HEMOGRAM [HEME] DAILY Lab 04/02/17 05:11 Ordered D5 1/2 NS w/ 20 mEq/L KCl 1,000 ml Med 04/01/17 06:45 Ordered IV ASDIRECTED Medication Orders Fentanyl Citrate (Fentanyl In Ns 20 Mcg/Ml 30 Ml News Editor) 0 mcg IV ASDIRECTED PRN; Protocol PRN Reason: PAIN Last Admin: 03/31/17 08:18 Dose: 600 mcg Admin: 03/30/17 08:37 Dose: 600 mcg Admin: 03/30/17 00:00 Dose: 600 mcg Admin: 03/29/17 16:00 Dose: 600 mcg Hydroxyzine HCl (Vistaril) 50 mg IM Q4H PRN PRN Reason: Nausea Last Admin: 03/30/17 01:07 Dose: 50 mg Naloxone HCl (Narcan) 0.1 mg IV ASDIRECTED PRN PRN Reason: RESP DISTRESS Nicotine (Habitrol) 7 mg TRDERM DAILY [facility] Last Admin: 03/31/17 08:31 Dose: 7 mg Admin: 03/30/17 08:10 Dose: 7 mg Admin: 03/29/17 17:56 Dose: 7 mg Ondansetron HCl (Zofran) 4 mg IVPUSH Q6H PRN PRN Reason: Nausea/Vomiting Last Admin: 03/31/17 02:53 Dose: 4 mg Admin: 03/29/17 20:43 Dose: 4 mg Pantoprazole Sodium (Protonix Iv) 40 mg IVPUSH Q24H [facility] Last Admin: 03/31/17 17:31 Dose: 40 mg Admin: 03/30/17 17:39 Dose: 40 mg Prazosin HCl (Minpress) 4 mg PO QPM [facility] Last Admin: 03/31/17 17:31 Dose: 4 mg Admin: 03/30/17 16:23 Dose: 4 mg Admin: 03/29/17 18:28 Dose: 4 mg Propranolol HCl (Inderal La) 80 mg PO DAILY [facility] Last Admin: 03/31/17 08:32 Dose: 80 mg Admin: 03/30/17 08:10 Dose: 80 mg Admin: 03/29/17 18:28 Dose: 80 mg - Assessment Assessment (Free Text/Narrative):: Doing well. - Plan Plan (Free Text/Narrative):: Continue clear liquids today. If tolerated, advance to regular.
[2017-04-01] MEDS: Propranolol 80 MG Cap.ER PO SCH (08:43)
[2017-04-01] MEDS: Nicotine 7 MG/24 Hr Patch TRDERM SCH (08:51)
[2017-04-01] MEDS: fentaNYL/Normal Saline 600 MCG/30 ML PCA Vial IV PRN ×2 (11:08→21:32)
[2017-04-01] MEDS: Prazosin 1 MG Cap PO SCH (16:19)
[2017-04-01] MEDS: Pantoprazole 40 MG Vial IVPUSH SCH (17:00)
[2017-04-02] MEDS: Nicotine 7 MG/24 Hr Patch TRDERM SCH (08:35)
[2017-04-02] MEDS: Propranolol 80 MG Cap.ER PO SCH (08:35)
[2017-04-02] MEDS: Acetaminophen/Codeine 300-30 MG Tab PO PRN ×3 (10:25→19:48)
[2017-04-02] MEDS: D5 1/2 NS w/ 20 mEq/L KCl 1,000 ML IV SCH (15:25)
--- NOTE | 2017-04-02 15:50 | PCM.SURGPN ---
- General Info Date of Service: 04/02/17 Date of Surgery/Procedure: 03/29/17 POD#: 4 Post-Op Diagnosis: SBO Admission Diagnosis/Problem: Small bowel obstruction Functional Status: Reports: Pain Controlled, Tolerating Diet, Ambulating, Urinating, Incentive Spirometry - Review of Systems General: Reports: No Symptoms HEENT: Reports: No Symptoms Pulmonary: Reports: No Symptoms Cardiovascular: Reports: No Symptoms Gastrointestinal: Reports: No Symptoms Genitourinary: Reports: No Symptoms Musculoskeletal: Reports: No Symptoms Skin: Reports: No Symptoms Neurological: Reports: No Symptoms Psychiatric: Reports: No Symptoms - Patient Data Vitals - Most Recent: Last Vital Signs Temp 97.9 F 04/02/17 15:40 Pulse 72 04/02/17 15:40 Resp 16 04/02/17 15:40 BP 106/85 04/02/17 15:40 Pulse Ox 100 04/02/17 15:40 Weight - Most Recent: 170 lb 6.677 oz I&O - Last 24 Hours: Intake & Output 04/02/17 04/02/17 04/02/17 06:59 14:59 22:59 Intake Total 476 1000 Output Total 1020 1350 Balance -544 -350 Lab Results Last 24 Hrs: Laboratory Results - last 24 hr 04/02/17 04/02/17 Range/Units 05:45 05:45 WBC 8.5 (4.5-11.0) K/uL RBC 4.02 (3.30-5.50) M/uL Hgb 11.8 L (12.0-15.0) g/dL Hct 35.9 L (36.0-48.0) % MCV 89 (80-98) fL MCH 29 (27-31) pg MCHC 33 (32-36) % Plt Count 101 L (150-400) K/uL Sodium 142 (140-148) mmol/L Potassium 3.3 L (3.6-5.2) mmol/L Chloride 109 H (100-108) mmol/L Carbon Dioxide 24 (21-32) mmol/L Anion Gap 12.3 (5.0-14.0) mmol/L BUN 5 L (7-18) mg/dL Creatinine 0.5 L (0.6-1.0) mg/dL Est Cr Clr Drug Dosing 128.33 mL/min Estimated GFR (MDRD) > 60 (>60) Glucose 94 (74-106) mg/dL Calcium 8.2 L (8.5-10.1) mg/dL Med Orders - Current: Current Medications Acetaminophen/Codeine Phosphate (Tylenol With Codeine No.3 300mg/30mg) 1 - 2 tab PO Q4H PRN PRN Reason: Pain Last Admin: 04/02/17 15:25 Dose: 2 tab Hydroxyzine HCl (Vistaril) 50 mg IM Q4H PRN PRN Reason: Nausea Last Admin: 03/30/17 01:07 Dose: 50 mg Potassium Chloride/Dextrose/Sod Cl (D5 1/2 Ns W/ 20 Meq/L Kcl) 1,000 mls @ 25 mls/hr IV ASDIRECTED [facility] Last Admin: 04/02/17 15:25 Dose: 50 mls/hr Nicotine (Habitrol) 7 mg TRDERM DAILY [facility] Last Admin: 04/02/17 08:35 Dose: 7 mg Ondansetron HCl (Zofran) 4 mg IVPUSH Q6H PRN PRN Reason: Nausea/Vomiting Last Admin: 03/31/17 02:53 Dose: 4 mg Pantoprazole Sodium (Protonix Iv) 40 mg IVPUSH Q24H [facility] Last Admin: 04/01/17 17:00 Dose: 40 mg Prazosin HCl (Minpress) 4 mg PO QPM [facility] Last Admin: 04/01/17 16:19 Dose: 4 mg Propranolol HCl (Inderal La) 80 mg PO DAILY [facility] Last Admin: 04/02/17 08:35 Dose: 80 mg Discontinued Medications Dexamethasone (Dexamethasone) Confirm Administered Dose 4 mg .ROUTE .STK-MED ONE Stop: 03/29/17 13:16 Fentanyl Citrate (Fentanyl) Confirm Administered Dose 500 mcg .ROUTE .STK-MED ONE Stop: 03/29/17 13:15 Fentanyl Citrate (Fentanyl In Ns 20 Mcg/Ml 30 Ml Rural Health Consultant) 0 mcg IV ASDIRECTED PRN; Protocol PRN Reason: PAIN Last Admin: 04/01/17 21:32 Dose: 600 mcg Glycopyrrolate (Robinul) Confirm Administered Dose 1 mg .ROUTE .STK-MED ONE Stop: 03/29/17 13:16 Cefoxitin Sodium 2 gm/ Sodium (Chloride) 50 mls @ 100 mls/hr IV ONCALL ONE Stop: 10/28/17 13:29 Last Admin: 03/29/17 12:33 Dose: 100 mls/hr Dextrose/Lactated Ringer's (Dextrose 5%-Lactated Ringers) 1,000 mls @ 500 mls/ hr IV ONETIME ONE Stop: 03/29/17 14:29 Last Admin: 03/29/17 12:32 Dose: 500 mls/hr Lactated Ringer's (Ringers, Lactated) 1,000 mls @ 100 mls/hr IV ASDIRECTED [facility] Lactated Ringer's (Ringers, Lactated) Confirm Administered Dose 1,000 mls @ as directed .ROUTE .STK-MED ONE Stop: 03/29/17 13:57 Potassium Chloride/Dextrose/Sod Cl (D5 1/2 Ns W/ 20 Meq/L Kcl) 1,000 mls @ 150 mls/hr IV ASDIRECTED [facility] Last Infusion: 04/01/17 06:48 Dose: 50 mls/hr Lactated Ringer's (Ringers, Lactated) 500 mls @ 500 mls/hr IV .BOLUS [facility] Stop: 03/29/17 21:46 Last Admin: 03/29/17 21:00 Dose: 500 mls/hr Hetastarch/Sodium Chloride (Hetastarch 6% In Normal Saline) 500 mls @ 500 mls/ hr IV ONETIME ONE Stop: 03/30/17 01:19 Last Admin: 03/30/17 00:33 Dose: 500 mls/hr Influenza Virus Vaccine (Pharmacy To Dose - Influenza Vaccine) 1 each IM ONETIME ONE Stop: 03/31/17 09:01 Influenza Virus Vaccine (Fluzone Quad [id number]) 60 mcg IM .ONCE ONE Stop: 03/29/17 17:16 Last Admin: 03/29/17 18:48 Dose: Not Given Influenza Virus Vaccine (Fluzone Quad [id number]) 60 mcg IM .ONCE ONE Stop: 03/31/17 10:01 Last Admin: 03/31/17 14:37 Dose: 60 mcg Naloxone HCl (Narcan) 0.1 mg IV ASDIRECTED PRN PRN Reason: RESP DISTRESS Neostigmine Methylsulfate (Neostigmine) Confirm Administered Dose 5 mg .ROUTE .STK-MED ONE Stop: 03/29/17 13:16 Ondansetron HCl (Zofran) Confirm Administered Dose 4 mg .ROUTE .STK-MED ONE Stop: 03/29/17 13:16 Ondansetron HCl (Zofran) Confirm Administered Dose 4 mg .ROUTE .STK-MED ONE Stop: 03/29/17 15:47 Last Admin: 03/29/17 15:57 Dose: 4 mg Pantoprazole Sodium (Protonix Iv) 40 mg IVPUSH DAILY [facility] Last Admin: 03/29/17 18:01 Dose: 40 mg Propofol (Diprivan 20 Ml) Confirm Administered Dose 200 mg .ROUTE .STK-MED ONE Stop: 03/29/17 13:16 Rocuronium [place] (Zemuron) Confirm Administered Dose 50 mg .ROUTE .STK-MED ONE Stop: 03/29/17 13:16 Succinylcholine Chloride (Quelicin) Confirm Administered Dose 200 mg .ROUTE .STK -MED ONE Stop: 03/29/17 13:16 - Exam Wound/Incisions: Healing Well, Other (Incision open and clean) General: Alert, Oriented Lungs: Clear to Auscultation, Normal Respiratory Effort Cardiovascular: Regular Rate, Regular Rhythm GI/Abdominal Exam: Normal Bowel Sounds, Soft, Non-Tender, No Organomegaly Extremities: Normal Inspection, Normal Range of Motion, Non-Tender, No Pedal Edema Skin: Warm, Dry, Intact Psy/Mental Status: Alert, Normal Affect, Normal Mood - Problem List & Annotations (1) Small bowel obstruction SNOMED Code(s): 866808203 Code(s): K56.609 - UNSP INTESTNL OBST, UNSP TO PARTIAL VERSUS COMPLETE OBST Status: Acute Current Visit: Yes - Problem List Review Problem List Initiated/Reviewed/Updated: Yes - My Orders Last 24 Hours: Active Orders 24 hr Category Date Time Status Regular Diet [DIET] Diet 04/02/17 Lunch Active Acetaminophen/Codeine [Tylenol with Codeine No.3 300MG/ Med 04/02/17 09:40 Active 30MG] 1 - 2 tab PO Q4H PRN Medication Orders Acetaminophen/Codeine Phosphate (Tylenol With Codeine No.3 300mg/30mg) 1 - 2 tab PO Q4H PRN PRN Reason: Pain Last Admin: 04/02/17 15:25 Dose: 2 tab Admin: 04/02/17 10:25 Dose: 2 tab Hydroxyzine HCl (Vistaril) 50 mg IM Q4H PRN PRN Reason: Nausea Last Admin: 03/30/17 01:07 Dose: 50 mg Potassium Chloride/Dextrose/Sod Cl (D5 1/2 Ns W/ 20 Meq/L Kcl) 1,000 mls @ 25 mls/hr IV ASDIRECTED [facility] Last Admin: 04/02/17 15:25 Dose: 50 mls/hr Infusion: 04/02/17 15:25 Dose: 50 mls/hr Admin: 04/01/17 19:27 Dose: 50 mls/hr Nicotine (Habitrol) 7 mg TRDERM DAILY [facility] Last Admin: 04/02/17 08:35 Dose: 7 mg Admin: 04/01/17 08:51 Dose: 7 mg Admin: 03/31/17 08:31 Dose: 7 mg Admin: 03/30/17 08:10 Dose: 7 mg Admin: 03/29/17 17:56 Dose: 7 mg Ondansetron HCl (Zofran) 4 mg IVPUSH Q6H PRN PRN Reason: Nausea/Vomiting Last Admin: 03/31/17 02:53 Dose: 4 mg Admin: 03/29/17 20:43 Dose: 4 mg Pantoprazole Sodium (Protonix Iv) 40 mg IVPUSH Q24H [facility] Last Admin: 04/01/17 17:00 Dose: 40 mg Admin: 03/31/17 17:31 Dose: 40 mg Admin: 03/30/17 17:39 Dose: 40 mg Prazosin HCl (Minpress) 4 mg PO QPM [facility] Last Admin: 04/01/17 16:19 Dose: 4 mg Admin: 03/31/17 17:31 Dose: 4 mg Admin: 03/30/17 16:23 Dose: 4 mg Admin: 03/29/17 18:28 Dose: 4 mg Propranolol HCl (Inderal La) 80 mg PO DAILY [facility] Last Admin: 04/02/17 08:35 Dose: 80 mg Admin: 04/01/17 08:43 Dose: 80 mg Admin: 03/31/17 08:32 Dose: 80 mg Admin: 03/30/17 08:10 Dose: 80 mg Admin: 03/29/17 18:28 Dose: 80 mg - Assessment Assessment (Free Text/Narrative):: Doing well. - Plan Plan (Free Text/Narrative):: Advance to regular diet. Oral pain medication. Hope for home tomorrow.
[2017-04-02] MEDS: Prazosin 1 MG Cap PO SCH (17:09)
[2017-04-02] MEDS: Pantoprazole 40 MG Vial IVPUSH SCH (17:09)
[2017-04-03] MEDS: Acetaminophen/Codeine 300-30 MG Tab PO PRN ×6 (03:11→23:49)
[2017-04-03] MEDS: Propranolol 80 MG Cap.ER PO SCH (08:07)
[2017-04-03] MEDS: Nicotine 7 MG/24 Hr Patch TRDERM SCH (08:07)
[2017-04-03] MEDS: Ondansetron 4 MG/2 ML SDV IVPUSH PRN (15:43)
[2017-04-03] MEDS: D5 1/2 NS w/ 20 mEq/L KCl 1,000 ML IV SCH (17:05)
[2017-04-03] MEDS: Pantoprazole 40 MG Vial IVPUSH SCH (17:37)
[2017-04-03] MEDS: Prazosin 1 MG Cap PO SCH (17:37)
--- NOTE | 2017-04-03 22:08 | PCM.SURGPN ---
- General Info Date of Service: 04/03/17 Date of Surgery/Procedure: 03/29/17 POD#: 5 Post-Op Diagnosis: SBO Admission Diagnosis/Problem: Small bowel obstruction Functional Status: Reports: Pain Controlled, Tolerating Diet, Ambulating, Urinating, Incentive Spirometry - Review of Systems General: Reports: No Symptoms HEENT: Reports: No Symptoms Pulmonary: Reports: No Symptoms Cardiovascular: Reports: No Symptoms Gastrointestinal: Reports: No Symptoms Genitourinary: Reports: No Symptoms Musculoskeletal: Reports: No Symptoms Skin: Reports: No Symptoms Neurological: Reports: No Symptoms Psychiatric: Reports: No Symptoms - Patient Data Vitals - Most Recent: Last Vital Signs Temp 97.6 F 04/03/17 18:29 Pulse 84 04/03/17 18:29 Resp 20 04/03/17 18:29 BP 104/62 04/03/17 18:29 Pulse Ox 99 04/03/17 18:29 Weight - Most Recent: 170 lb 6.677 oz I&O - Last 24 Hours: Intake & Output 04/03/17 04/03/17 04/03/17 06:59 14:59 22:59 Intake Total 1577 1561 1273 Output Total 2200 500 1350 Balance -623 1061 -77 Med Orders - Current: Current Medications Acetaminophen/Codeine Phosphate (Tylenol With Codeine No.3 300mg/30mg) 1 - 2 tab PO Q4H PRN PRN Reason: Pain Last Admin: 04/03/17 19:53 Dose: 2 tab Hydroxyzine HCl (Vistaril) 50 mg IM Q4H PRN PRN Reason: Nausea Last Admin: 03/30/17 01:07 Dose: 50 mg Potassium Chloride/Dextrose/Sod Cl (D5 1/2 Ns W/ 20 Meq/L Kcl) 1,000 mls @ 25 mls/hr IV ASDIRECTED [facility] Last Admin: 04/03/17 17:05 Dose: 50 mls/hr Nicotine (Habitrol) 7 mg TRDERM DAILY [facility] Last Admin: 04/03/17 08:07 Dose: 7 mg Ondansetron HCl (Zofran) 4 mg IVPUSH Q6H PRN PRN Reason: Nausea/Vomiting Last Admin: 04/03/17 15:43 Dose: 4 mg Pantoprazole Sodium (Protonix Iv) 40 mg IVPUSH Q24H [facility] Last Admin: 04/03/17 17:37 Dose: 40 mg Prazosin HCl (Minpress) 4 mg PO QPM [facility] Last Admin: 04/03/17 17:37 Dose: 4 mg Propranolol HCl (Inderal La) 80 mg PO DAILY [facility] Last Admin: 04/03/17 08:07 Dose: 80 mg Discontinued Medications Dexamethasone (Dexamethasone) Confirm Administered Dose 4 mg .ROUTE .STK-MED ONE Stop: 03/29/17 13:16 Fentanyl Citrate (Fentanyl) Confirm Administered Dose 500 mcg .ROUTE .STK-MED ONE Stop: 03/29/17 13:15 Fentanyl Citrate (Fentanyl In Ns 20 Mcg/Ml 30 Ml Sheet Metal Superintendent) 0 mcg IV ASDIRECTED PRN; Protocol PRN Reason: PAIN Last Admin: 04/01/17 21:32 Dose: 600 mcg Glycopyrrolate (Robinul) Confirm Administered Dose 1 mg .ROUTE .STK-MED ONE Stop: 03/29/17 13:16 Cefoxitin Sodium 2 gm/ Sodium (Chloride) 50 mls @ 100 mls/hr IV ONCALL ONE Stop: 03/29/17 13:29 Last Admin: 03/29/17 12:33 Dose: 100 mls/hr Dextrose/Lactated Ringer's (Dextrose 5%-Lactated Ringers) 1,000 mls @ 500 mls/ hr IV ONETIME ONE Stop: 03/29/17 14:29 Last Admin: 03/29/17 12:32 Dose: 500 mls/hr Lactated Ringer's (Ringers, Lactated) 1,000 mls @ 100 mls/hr IV ASDIRECTED [facility] Lactated Ringer's (Ringers, Lactated) Confirm Administered Dose 1,000 mls @ as directed .ROUTE .STK-MED ONE Stop: 03/29/17 13:57 Potassium Chloride/Dextrose/Sod Cl (D5 1/2 Ns W/ 20 Meq/L Kcl) 1,000 mls @ 150 mls/hr IV ASDIRECTED [facility] Last Infusion: 04/01/17 06:48 Dose: 50 mls/hr Lactated Ringer's (Ringers, Lactated) 500 mls @ 500 mls/hr IV .BOLUS [facility] Stop: 03/29/17 21:46 Last Admin: 03/29/17 21:00 Dose: 500 mls/hr Hetastarch/Sodium Chloride (Hetastarch 6% In Normal Saline) 500 mls @ 500 mls/ hr IV ONETIME ONE Stop: 03/30/17 01:19 Last Admin: 03/30/17 00:33 Dose: 500 mls/hr Influenza Virus Vaccine (Pharmacy To Dose - Influenza Vaccine) 1 each IM ONETIME ONE Stop: 03/31/17 09:01 Influenza Virus Vaccine (Fluzone Quad ) 60 mcg IM .ONCE ONE Stop: 03/29/17 17:16 Last Admin: 03/29/17 18:48 Dose: Not Given Influenza Virus Vaccine (Fluzone Quad ) 60 mcg IM .ONCE ONE Stop: 03/31/17 10:01 Last Admin: 03/31/17 14:37 Dose: 60 mcg Naloxone HCl (Narcan) 0.1 mg IV ASDIRECTED PRN PRN Reason: RESP DISTRESS Neostigmine Methylsulfate (Neostigmine) Confirm Administered Dose 5 mg .ROUTE .STK-MED ONE Stop: 03/29/17 13:16 Ondansetron HCl (Zofran) Confirm Administered Dose 4 mg .ROUTE .STK-MED ONE Stop: 03/29/17 13:16 Ondansetron HCl (Zofran) Confirm Administered Dose 4 mg .ROUTE .STK-MED ONE Stop: 03/29/17 15:47 Last Admin: 03/29/17 15:57 Dose: 4 mg Pantoprazole Sodium (Protonix Iv) 40 mg IVPUSH DAILY [facility] Last Admin: 03/29/17 18:01 Dose: 40 mg Propofol (Diprivan 20 Ml) Confirm Administered Dose 200 mg .ROUTE .STK-MED ONE Stop: 03/29/17 13:16 Rocuronium [place] (Zemuron) Confirm Administered Dose 50 mg .ROUTE .STK-MED ONE Stop: 03/29/17 13:16 Succinylcholine Chloride (Quelicin) Confirm Administered Dose 200 mg .ROUTE .STK -MED ONE Stop: 03/29/17 13:16 - Exam Wound/Incisions: Other (Wound has dehisced but not eviserated. ) General: Alert, Oriented, Cooperative, No Acute Distress Lungs: Clear to Auscultation, Normal Respiratory Effort Cardiovascular: Regular Rate, Regular Rhythm GI/Abdominal Exam: Normal Bowel Sounds, Soft, Non-Tender, No Distention, Other ( Wound has dehisced but not eviserated. ) Extremities: Normal Inspection, Normal Range of Motion, Non-Tender, No Pedal Edema Skin: Warm, Dry Psy/Mental Status: Alert, Normal Affect, Normal Mood - Problem List & Annotations (1) Small bowel obstruction SNOMED Code(s): 263673895 Code(s): K56.609 - UNSP INTESTNL OBST, UNSP TO PARTIAL VERSUS COMPLETE OBST Status: Acute Current Visit: Yes - Problem List Review Problem List Initiated/Reviewed/Updated: Yes - My Orders Last 24 Hours: Medication Orders Acetaminophen/Codeine Phosphate (Tylenol With Codeine No.3 300mg/30mg) 1 - 2 tab PO Q4H PRN PRN Reason: Pain Last Admin: 04/03/17 19:53 Dose: 2 tab Admin: 04/03/17 16:18 Dose: 2 tab Admin: 04/03/17 11:59 Dose: 2 tab Admin: 04/03/17 08:06 Dose: 2 tab Admin: 04/03/17 03:11 Dose: 2 tab Admin: 04/02/17 19:48 Dose: 2 tab Admin: 04/02/17 15:25 Dose: 2 tab Admin: 04/02/17 10:25 Dose: 2 tab Hydroxyzine HCl (Vistaril) 50 mg IM Q4H PRN PRN Reason: Nausea Last Admin: 03/30/17 01:07 Dose: 50 mg Potassium Chloride/Dextrose/Sod Cl (D5 1/2 Ns W/ 20 Meq/L Kcl) 1,000 mls @ 25 mls/hr IV ASDIRECTED COUNT INCLUDES THE [facility] Last Admin: 04/03/17 17:05 Dose: 50 mls/hr Infusion: 04/03/17 11:25 Dose: 50 mls/hr Admin: 04/02/17 15:25 Dose: 50 mls/hr Infusion: 04/02/17 15:25 Dose: 50 mls/hr Admin: 04/01/17 19:27 Dose: 50 mls/hr Nicotine (Habitrol) 7 mg TRDERM DAILY COUNT INCLUDES THE [facility] Last Admin: 04/03/17 08:07 Dose: 7 mg Admin: 04/02/17 08:35 Dose: 7 mg Admin: 04/01/17 08:51 Dose: 7 mg Admin: 03/31/17 08:31 Dose: 7 mg Admin: 03/30/17 08:10 Dose: 7 mg Admin: 03/29/17 17:56 Dose: 7 mg Ondansetron HCl (Zofran) 4 mg IVPUSH Q6H PRN PRN Reason: Nausea/Vomiting Last Admin: 04/03/17 15:43 Dose: 4 mg Admin: 03/31/17 02:53 Dose: 4 mg Admin: 03/29/17 20:43 Dose: 4 mg Pantoprazole Sodium (Protonix Iv) 40 mg IVPUSH Q24H COUNT INCLUDES THE [facility] Last Admin: 04/03/17 17:37 Dose: 40 mg Admin: 04/02/17 17:09 Dose: 40 mg Admin: 04/01/17 17:00 Dose: 40 mg Admin: 03/31/17 17:31 Dose: 40 mg Admin: 03/30/17 17:39 Dose: 40 mg Prazosin HCl (Minpress) 4 mg PO QPM COUNT INCLUDES THE [facility] Last Admin: 04/03/17 17:37 Dose: 4 mg Admin: 04/02/17 17:09 Dose: 4 mg Admin: 04/01/17 16:19 Dose: 4 mg Admin: 03/31/17 17:31 Dose: 4 mg Admin: 03/30/17 16:23 Dose: 4 mg Admin: 03/29/17 18:28 Dose: 4 mg Propranolol HCl (Inderal La) 80 mg PO DAILY COUNT INCLUDES THE [facility] Last Admin: 04/03/17 08:07 Dose: 80 mg Admin: 04/02/17 08:35 Dose: 80 mg Admin: 04/01/17 08:43 Dose: 80 mg Admin: 03/31/17 08:32 Dose: 80 mg Admin: 03/30/17 08:10 Dose: 80 mg Admin: 03/29/17 18:28 Dose: 80 mg - Assessment Assessment (Free Text/Narrative):: Wound dehisced but without evisceration. - Plan Plan (Free Text/Narrative):: Discussed with Dr. Arevalo who will consult.
[2017-04-04] MEDS: Acetaminophen/Codeine 300-30 MG Tab PO PRN ×2 (03:35→08:04)
[2017-04-04] MEDS: Ondansetron 4 MG/2 ML SDV IVPUSH PRN ×2 (09:20→19:56)
[2017-04-04] MEDS ORDERED: Midazolam 1 MG/ML 2 ML SDV ONE (11:27)
[2017-04-04] MEDS ORDERED: Neostigmine Methylsulfate 1 MG/ML 5 ML Syringe ONE (11:27)
[2017-04-04] MEDS ORDERED: Succinylcholine 200 MG/10 ML MDV ONE (11:27)
[2017-04-04] MEDS ORDERED: Ondansetron 4 MG/2 ML SDV ONE (11:27)
[2017-04-04] MEDS ORDERED: Dexamethasone 4 MG/ML SDV ONE (11:27)
[2017-04-04] MEDS ORDERED: Glycopyrrolate 0.2 MG/ML 5 ML MDV ONE (11:27)
[2017-04-04] MEDS ORDERED: fentaNYL 250 MCG/5 ML SDV ONE (11:27)
[2017-04-04] MEDS ORDERED: Rocuronium 50 MG/5 ML Vial ONE (11:27)
[2017-04-04] MEDS ORDERED: Propofol 200 MG/20 ML SDV ONE (11:27)
[2017-04-04] MEDS: Propranolol 80 MG Cap.ER PO SCH (13:06)
[2017-04-04] MEDS ORDERED: Lactated Ringers 1,000 ML ONE (13:10)
[2017-04-04] MEDS ORDERED: cefOXitin 2 GM Vial ONE (13:13)
[2017-04-04] MEDS ORDERED: fentaNYL 100 MCG/2 ML SDV ONE (13:30)
[2017-04-04] MEDS ORDERED: hydrOXYzine HCl 100 MG/2 ML SDV IM ONE (13:35)
[2017-04-04] MEDS ORDERED: Naloxone 0.4 MG/ML SDV IV PRN (13:41)
[2017-04-04] MEDS: HYDROmorphone/Normal Saline 15 MG/30 ML PCA IV PRN (13:43)
[2017-04-04] MEDS: Nicotine 7 MG/24 Hr Patch TRDERM SCH (14:28)
[2017-04-04] MEDS: Prazosin 1 MG Cap PO SCH (18:27)
[2017-04-04] MEDS: Pantoprazole 40 MG Vial IVPUSH SCH (18:28)
[2017-04-04] MEDS: D5 1/2 NS w/ 20 mEq/L KCl 1,000 ML IV SCH (19:15)
[2017-04-05] MEDS: HYDROmorphone/Normal Saline 15 MG/30 ML PCA IV PRN ×2 (02:39→20:11)
[2017-04-05] MEDS: D5 1/2 NS w/ 20 mEq/L KCl 1,000 ML IV SCH ×3 (03:22→19:36)
[2017-04-05] MEDS: Ondansetron 4 MG/2 ML SDV IVPUSH PRN (08:12)
[2017-04-05] MEDS: Nicotine 7 MG/24 Hr Patch TRDERM SCH (08:13)
[2017-04-05] MEDS: Propranolol 80 MG Cap.ER PO SCH (08:16)
--- NOTE | 2017-04-05 08:55 | PCM.SURGPN ---
- General Info Date of Service: 04/05/17 Date of Surgery/Procedure: 04/04/17 POD#: 1 Post-Op Diagnosis: Dehiscence Functional Status: Reports: Pain Controlled, Ambulating, Urinating ([place] in place. ) - Review of Systems General: Reports: No Symptoms HEENT: Reports: No Symptoms Pulmonary: Reports: No Symptoms Cardiovascular: Reports: No Symptoms Gastrointestinal: Reports: Nausea Genitourinary: Reports: No Symptoms Musculoskeletal: Reports: No Symptoms Skin: Reports: No Symptoms Neurological: Reports: No Symptoms Psychiatric: Reports: No Symptoms - Patient Data Vitals - Most Recent: Last Vital Signs Temp 97.4 F 04/05/17 08:37 Pulse 117 H 04/05/17 08:37 Resp 18 04/05/17 08:37 BP 111/74 04/05/17 08:37 Pulse Ox 94 L 04/05/17 08:37 Weight - Most Recent: 170 lb 6.677 oz I&O - Last 24 Hours: Intake & Output 04/04/17 04/05/17 04/05/17 22:59 06:59 14:59 Intake Total 600 370 Output Total 625 835 Balance -25 -465 Lab Results Last 24 Hrs: Laboratory Results - last 24 hr 04/04/17 04/04/17 04/05/17 Range/Units 08:44 08:44 04:30 WBC 7.2 7.9 (4.5-11.0) K/uL RBC 3.73 3.97 (3.30-5.50) M/uL Hgb 10.9 L 11.7 L (12.0-15.0) g/dL Hct 33.2 L 35.2 L (36.0-48.0) % MCV 89 89 (80-98) fL MCH 29 30 (27-31) pg MCHC 33 33 (32-36) % Plt Count 103 L 112 L (150-400) K/uL Sodium 139 L (140-148) mmol/L Potassium 3.6 (3.6-5.2) mmol/L Chloride 106 (100-108) mmol/L Carbon Dioxide 25 (21-32) mmol/L Anion Gap 11.6 (5.0-14.0) mmol/L BUN 6 L (7-18) mg/dL Creatinine 0.6 (0.6-1.0) mg/dL Est Cr Clr Drug Dosing 106.94 mL/min Estimated GFR (MDRD) > 60 (>60) Glucose 96 (74-106) mg/dL Calcium 8.0 L (8.5-10.1) mg/dL Total Bilirubin (0.2-1.0) mg/dL AST (15-37) U/L ALT (12-78) U/L Alkaline Phosphatase (46-116) U/L Total Protein (6.4-8.2) g/dL Albumin (3.4-5.0) g/dL Globulin (2.3-3.5) g/dL Albumin/Globulin Ratio (1.2-2.2) 04/05/17 Range/Units 04:30 WBC (4.5-11.0) K/uL RBC (3.30-5.50) M/uL Hgb (12.0-15.0) g/dL Hct (36.0-48.0) % MCV (80-98) fL MCH (27-31) pg MCHC (32-36) % Plt Count (150-400) K/uL Sodium 139 L (140-148) mmol/L Potassium 3.5 L (3.6-5.2) mmol/L Chloride 103 (100-108) mmol/L Carbon Dioxide 25 (21-32) mmol/L Anion Gap 14.5 H (5.0-14.0) mmol/L BUN 5 L (7-18) mg/dL Creatinine 0.6 (0.6-1.0) mg/dL Est Cr Clr Drug Dosing 106.94 mL/min Estimated GFR (MDRD) > 60 (>60) Glucose 113 H (74-106) mg/dL Calcium 8.0 L (8.5-10.1) mg/dL Total Bilirubin 0.4 (0.2-1.0) mg/dL AST 20 (15-37) U/L ALT 20 (12-78) U/L Alkaline Phosphatase 192 H (46-116) U/L Total Protein 4.7 L (6.4-8.2) g/dL Albumin 1.8 L (3.4-5.0) g/dL Globulin 2.9 (2.3-3.5) g/dL Albumin/Globulin Ratio 0.6 L (1.2-2.2) Gil Results Last 24 Hrs: Microbiology 04/04/17 12:20 Gram Stain - Final Abdomen - Incision Wound Culture - Preliminary Med Orders - Current: Current Medications Acetaminophen/Codeine Phosphate (Tylenol With Codeine No.3 300mg/30mg) 1 - 2 tab PO Q4H PRN PRN Reason: Pain Last Admin: 04/04/17 08:04 Dose: 2 tab Hydromorphone HCl (Dilaudid [employer] 15 Mg In Ns 30 Ml) 0 mg IV ASDIRECTED PRN; Protocol PRN Reason: Pain Last Admin: 04/05/17 02:39 Dose: 15 mg Hydroxyzine HCl (Vistaril) 50 mg IM Q4H PRN PRN Reason: Nausea Last Admin: 03/30/17 01:07 Dose: 50 mg Potassium Chloride/Dextrose/Sod Cl (D5 1/2 Ns W/ 20 Meq/L Kcl) 1,000 mls @ 125 mls/hr IV ASDIRECTED YULIANA Last Admin: 04/05/17 03:22 Dose: 125 mls/hr Naloxone HCl (Narcan) 0.1 mg IV ASDIRECTED PRN PRN Reason: decreased respiratory rate Nicotine (Habitrol) 7 mg TRDERM DAILY [facility] Last Admin: 04/05/17 08:13 Dose: 7 mg Ondansetron HCl (Zofran) 4 mg IVPUSH Q6H PRN PRN Reason: Nausea/Vomiting Last Admin: 04/05/17 08:12 Dose: 4 mg Pantoprazole Sodium (Protonix Iv) 40 mg IVPUSH Q24H [facility] Last Admin: 04/04/17 18:28 Dose: 40 mg Prazosin HCl (Minpress) 4 mg PO QPM [facility] Last Admin: 04/04/17 18:27 Dose: 4 mg Propranolol HCl (Inderal La) 80 mg PO DAILY [facility] Last Admin: 04/05/17 08:16 Dose: 80 mg Discontinued Medications Cefoxitin Sodium (Mefoxin) Confirm Administered Dose 2 gm .ROUTE .STK-MED ONE Stop: 04/04/17 13:14 Dexamethasone (Dexamethasone) Confirm Administered Dose 4 mg .ROUTE .STK-MED ONE Stop: 03/29/17 13:16 Dexamethasone (Dexamethasone) Confirm Administered Dose 4 mg .ROUTE .STK-MED ONE Stop: 04/04/17 11:28 Fentanyl (Sublimaze) Confirm Administered Dose 250 mcg .ROUTE .STK-MED ONE Stop: 04/04/17 11:28 Fentanyl (Sublimaze) Confirm Administered Dose 100 mcg .ROUTE .STK-MED ONE Stop: 04/04/17 13:31 Fentanyl Citrate (Fentanyl) Confirm Administered Dose 500 mcg .ROUTE .STK-MED ONE Stop: 03/29/17 13:15 Fentanyl Citrate (Fentanyl In Ns 20 Mcg/Ml 30 Ml [employer]) 0 mcg IV ASDIRECTED PRN; Protocol PRN Reason: PAIN Last Admin: 04/01/17 21:32 Dose: 600 mcg Glycopyrrolate (Robinul) Confirm Administered Dose 1 mg .ROUTE .STK-MED ONE Stop: 03/29/17 13:16 Glycopyrrolate (Robinul) Confirm Administered Dose 1 mg .ROUTE .STK-MED ONE Stop: 04/04/17 11:28 Hydroxyzine HCl (Vistaril) 75 mg IM ONETIME ONE Stop: 04/04/17 13:36 Last Admin: 04/04/17 13:40 Dose: 75 mg Cefoxitin Sodium 2 gm/ Sodium (Chloride) 50 mls @ 100 mls/hr IV ONCALL ONE Stop: 03/29/17 13:29 Last Admin: 03/29/17 12:33 Dose: 100 mls/hr Dextrose/Lactated Ringer's (Dextrose 5%-Lactated Ringers) 1,000 mls @ 500 mls/ hr IV ONETIME ONE Stop: 03/29/17 14:29 Last Admin: 03/29/17 12:32 Dose: 500 mls/hr Lactated Ringer's (Ringers, Lactated) 1,000 mls @ 100 mls/hr IV ASDIRECTED YULIANA Lactated Ringer's (Ringers, Lactated) Confirm Administered Dose 1,000 mls @ as directed .ROUTE .STK-MED ONE Stop: 03/29/17 13:57 Potassium Chloride/Dextrose/Sod Cl (D5 1/2 Ns W/ 20 Meq/L Kcl) 1,000 mls @ 150 mls/hr IV ASDIRECTED YULIANA Last Infusion: 04/01/17 06:48 Dose: 50 mls/hr Lactated Ringer's (Ringers, Lactated) 500 mls @ 500 mls/hr IV .BOLUS YULIANA Stop: 03/29/17 21:46 Last Admin: 03/29/17 21:00 Dose: 500 mls/hr Hetastarch/Sodium Chloride (Hetastarch 6% In Normal Saline) 500 mls @ 500 mls/ hr IV ONETIME ONE Stop: 03/30/17 01:19 Last Admin: 03/30/17 00:33 Dose: 500 mls/hr Potassium Chloride/Dextrose/Sod Cl (D5 1/2 Ns W/ 20 Meq/L Kcl) 1,000 mls @ 25 mls/hr IV ASDIRECTED [facility] Last Admin: 04/03/17 17:05 Dose: 50 mls/hr Lactated Ringer's (Ringers, Lactated) Confirm Administered Dose 1,000 mls @ as directed .ROUTE .STK-MED ONE Stop: 04/04/17 13:11 Influenza Virus Vaccine (Pharmacy To Dose - Influenza Vaccine) 1 each IM ONETIME ONE Stop: 03/31/17 09:01 Influenza Virus Vaccine (Fluzone Quad [id number]) 60 mcg IM .ONCE ONE Stop: 03/29/17 17:16 Last Admin: 03/29/17 18:48 Dose: Not Given Influenza Virus Vaccine (Fluzone Quad [id number]) 60 mcg IM .ONCE ONE Stop: 03/31/17 10:01 Last Admin: 03/31/17 14:37 Dose: 60 mcg Midazolam HCl (Versed 1 Mg/Ml) Confirm Administered Dose 2 mg .ROUTE .STK-MED ONE Stop: 04/04/17 11:28 Naloxone HCl (Narcan) 0.1 mg IV ASDIRECTED PRN PRN Reason: RESP DISTRESS Neostigmine Methylsulfate (Neostigmine) Confirm Administered Dose 5 mg .ROUTE .STK-MED ONE Stop: 03/29/17 13:16 Neostigmine Methylsulfate (Neostigmine) Confirm Administered Dose 5 mg .ROUTE .STK-MED ONE Stop: 04/04/17 11:28 Ondansetron HCl (Zofran) Confirm Administered Dose 4 mg .ROUTE .STK-MED ONE Stop: 03/29/17 13:16 Ondansetron HCl (Zofran) Confirm Administered Dose 4 mg .ROUTE .STK-MED ONE Stop: 03/29/17 15:47 Last Admin: 03/29/17 15:57 Dose: 4 mg Ondansetron HCl (Zofran) Confirm Administered Dose 4 mg .ROUTE .STK-MED ONE Stop: 04/04/17 11:28 Pantoprazole Sodium (Protonix Iv) 40 mg IVPUSH DAILY [facility] Last Admin: 03/29/17 18:01 Dose: 40 mg Propofol (Diprivan 20 Ml) Confirm Administered Dose 200 mg .ROUTE .STK-MED ONE Stop: 03/29/17 13:16 Propofol (Diprivan 20 Ml) Confirm Administered Dose 200 mg .ROUTE .STK-MED ONE Stop: 04/04/17 11:28 Rocuronium [place] (Zemuron) Confirm Administered Dose 50 mg .ROUTE .STK-MED ONE Stop: 03/29/17 13:16 Rocuronium [place] (Zemuron) Confirm Administered Dose 50 mg .ROUTE .STK-MED ONE Stop: 04/04/17 11:28 Succinylcholine Chloride (Quelicin) Confirm Administered Dose 200 mg .ROUTE .STK -MED ONE Stop: 03/29/17 13:16 Succinylcholine Chloride (Quelicin) Confirm Administered Dose 200 mg .ROUTE .STK -MED ONE Stop: 04/04/17 11:28 - Exam Wound/Incisions: Drainage General: Alert, Oriented, Cooperative, No Acute Distress Lungs: Clear to Auscultation, Normal Respiratory Effort Cardiovascular: Regular Rate, Regular Rhythm GI/Abdominal Exam: Normal Bowel Sounds Extremities: Normal Inspection Skin: Warm, Dry, Intact Neurological: No New Focal Deficit Psy/Mental Status: Alert, Normal Affect, Normal Mood - Problem List & Annotations (1) Small bowel obstruction SNOMED Code(s): 182908846 Code(s): K56.609 - UNSP INTESTNL OBST, UNSP TO PARTIAL VERSUS COMPLETE OBST Status: Acute Current Visit: Yes - Problem List Review Problem List Initiated/Reviewed/Updated: Yes - My Orders Last 24 Hours: Active Orders 24 hr Category Date Time Status Patient Status [ADT] Routine ADT 04/04/17 13:39 Active Pulse Oximetry [RC] CONTINUOUS Care 04/04/17 13:41 Active Verify Patient Consent Obtain [RC] ASDIRECTED Care 04/04/17 08:37 Active Clear Liquid Diet [DIET] Diet 04/05/17 Breakfast Active CBC W/O DIFF,HEMOGRAM [HEME] DAILY Lab 04/06/17 05:11 Ordered CBC W/O DIFF,HEMOGRAM [HEME] DAILY Lab 04/07/17 05:11 Ordered CBC W/O DIFF,HEMOGRAM [HEME] DAILY Lab 04/08/17 05:11 Ordered CBC W/O DIFF,HEMOGRAM [HEME] DAILY Lab 04/09/17 05:11 Ordered CBC W/O DIFF,HEMOGRAM [HEME] DAILY Lab 04/10/17 05:11 Ordered CULTURE ANAEROBIC [RM] Routine Lab 04/04/17 12:20 Results CULTURE WOUND + SMEAR [RM] Routine Lab 04/04/17 12:20 Results D5 1/2 NS w/ 20 mEq/L KCl 1,000 ml Med 04/04/17 13:45 Active IV ASDIRECTED HYDROmorphone/Normal Saline [Dilaudid DIGITAL ARCHIVIST 15 MG in NS Med 04/04/17 13:37 Active 30 ML] See Protocol IV ASDIRECTED PRN Naloxone [Narcan] Med 04/04/17 13:41 Active 0.1 mg IV ASDIRECTED PRN Medication Orders Acetaminophen/Codeine Phosphate (Tylenol With Codeine No.3 300mg/30mg) 1 - 2 tab PO Q4H PRN PRN Reason: Pain Last Admin: 04/04/17 08:04 Dose: 2 tab Admin: 04/04/17 03:35 Dose: 2 tab Admin: 04/03/17 23:49 Dose: 2 tab Admin: 04/03/17 19:53 Dose: 2 tab Admin: 04/03/17 16:18 Dose: 2 tab Admin: 04/03/17 11:59 Dose: 2 tab Admin: 04/03/17 08:06 Dose: 2 tab Admin: 04/03/17 03:11 Dose: 2 tab Admin: 04/02/17 19:48 Dose: 2 tab Admin: 04/02/17 15:25 Dose: 2 tab Admin: 04/02/17 10:25 Dose: 2 tab Hydromorphone HCl (Dilaudid [employer] 15 Mg In Ns 30 Ml) 0 mg IV ASDIRECTED PRN; Protocol PRN Reason: Pain Last Admin: 04/05/17 02:39 Dose: 15 mg Admin: 04/04/17 13:43 Dose: 15 mg Hydroxyzine HCl (Vistaril) 50 mg IM Q4H PRN PRN Reason: Nausea Last Admin: 03/30/17 01:07 Dose: 50 mg Potassium Chloride/Dextrose/Sod Cl (D5 1/2 Ns W/ 20 Meq/L Kcl) 1,000 mls @ 125 mls/hr IV ASDIRECTED [facility] Last Admin: 04/05/17 03:22 Dose: 125 mls/hr Infusion: 04/05/17 03:15 Dose: 125 mls/hr Admin: 04/04/17 19:15 Dose: 125 mls/hr Naloxone HCl (Narcan) 0.1 mg IV ASDIRECTED PRN PRN Reason: decreased respiratory rate Nicotine (Habitrol) 7 mg TRDERM DAILY [facility] Last Admin: 04/05/17 08:13 Dose: 7 mg Admin: 04/04/17 14:28 Dose: 7 mg Admin: 04/03/17 08:07 Dose: 7 mg Admin: 04/02/17 08:35 Dose: 7 mg Admin: 04/01/17 08:51 Dose: 7 mg Admin: 03/31/17 08:31 Dose: 7 mg Admin: 03/30/17 08:10 Dose: 7 mg Admin: 03/29/17 17:56 Dose: 7 mg Ondansetron HCl (Zofran) 4 mg IVPUSH Q6H PRN PRN Reason: Nausea/Vomiting Last Admin: 04/05/17 08:12 Dose: 4 mg Admin: 04/04/17 19:56 Dose: 4 mg Admin: 04/04/17 09:20 Dose: 4 mg Admin: 04/03/17 15:43 Dose: 4 mg Admin: 03/31/17 02:53 Dose: 4 mg Admin: 03/29/17 20:43 Dose: 4 mg Pantoprazole Sodium (Protonix Iv) 40 mg IVPUSH Q24H [facility] Last Admin: 04/04/17 18:28 Dose: 40 mg Admin: 04/03/17 17:37 Dose: 40 mg Admin: 04/02/17 17:09 Dose: 40 mg Admin: 04/01/17 17:00 Dose: 40 mg Admin: 03/31/17 17:31 Dose: 40 mg Admin: 03/30/17 17:39 Dose: 40 mg Prazosin HCl (Minpress) 4 mg PO QPM [facility] Last Admin: 04/04/17 18:27 Dose: 4 mg Admin: 04/03/17 17:37 Dose: 4 mg Admin: 04/02/17 17:09 Dose: 4 mg Admin: 04/01/17 16:19 Dose: 4 mg Admin: 03/31/17 17:31 Dose: 4 mg Admin: 03/30/17 16:23 Dose: 4 mg Admin: 03/29/17 18:28 Dose: 4 mg Propranolol HCl (Inderal La) 80 mg PO DAILY [facility] Last Admin: 04/05/17 08:16 Dose: 80 mg Admin: 04/04/17 13:06 Dose: Admin: 04/03/17 08:07 Dose: 80 mg Admin: 04/02/17 08:35 Dose: 80 mg Admin: 04/01/17 08:43 Dose: 80 mg Admin: 03/31/17 08:32 Dose: 80 mg Admin: 03/30/17 08:10 Dose: 80 mg Admin: 03/29/17 18:28 Dose: 80 mg - Assessment Assessment (Free Text/Narrative):: She wanted a clear liquid diet last night which if she does not "over do it" she does fine. - Plan Plan (Free Text/Narrative):: Lisa/Briseyda [place].
[2017-04-05] MEDS ORDERED: Miconazole 2% Crm 30 GM Tube TOP PRN (12:16)
[2017-04-05] MEDS: Pantoprazole 40 MG Vial IVPUSH SCH (17:48)
[2017-04-05] MEDS: Prazosin 1 MG Cap PO SCH (21:32)
[2017-04-06] MEDS: D5 1/2 NS w/ 20 mEq/L KCl 1,000 ML IV SCH ×3 (02:12→18:18)
[2017-04-06] MEDS: Nicotine 7 MG/24 Hr Patch TRDERM SCH (08:06)
[2017-04-06] MEDS: Propranolol 80 MG Cap.ER PO SCH (08:09)
[2017-04-06] MEDS: Ondansetron 4 MG/2 ML SDV IVPUSH PRN ×3 (08:58→21:54)
[2017-04-06] MEDS ORDERED: Central TPN 1 ML IV SCH (09:45)
--- NOTE | 2017-04-06 10:05 | PCM.SURGPN ---
- General Info Date of Service: 04/04/17 Date of Surgery/Procedure: 04/06/17 POD#: 2 Post-Op Diagnosis: Dehiscence Functional Status: Reports: Pain Controlled, Tolerating Diet, Ambulating, Urinating - Review of Systems General: Reports: No Symptoms HEENT: Reports: No Symptoms Pulmonary: Reports: No Symptoms Cardiovascular: Reports: No Symptoms Gastrointestinal: Reports: Nausea (Occasional nausea). Denies: Abdominal Pain, Flatus Genitourinary: Reports: No Symptoms Musculoskeletal: Reports: No Symptoms Skin: Reports: No Symptoms Neurological: Reports: No Symptoms Psychiatric: Reports: No Symptoms - Patient Data Vitals - Most Recent: Last Vital Signs Temp 98.1 F 04/06/17 07:31 Pulse 90 04/06/17 07:31 Resp 16 04/06/17 07:31 BP 112/55 L 04/06/17 07:31 Pulse Ox 97 04/06/17 07:31 Weight - Most Recent: 170 lb 6.677 oz I&O - Last 24 Hours: Intake & Output 04/05/17 04/06/17 04/06/17 23:59 06:59 14:59 Intake Total Output Total Balance Lab Results Last 24 Hrs: Laboratory Results - last 24 hr 04/06/17 Range/Units 04:15 WBC 10.7 (4.5-11.0) K/uL RBC 4.15 (3.30-5.50) M/uL Hgb 12.1 (12.0-15.0) g/dL Hct 36.9 (36.0-48.0) % MCV 89 (80-98) fL MCH 29 (27-31) pg MCHC 33 (32-36) % Plt Count 145 L (150-400) K/uL Gil Results Last 24 Hrs: Microbiology 04/04/17 12:20 Gram Stain - Final Abdomen - Incision Wound Culture - Preliminary Anaerobic Culture - Preliminary NO GROWTH AFTER 2 DAYS Med Orders - Current: Current Medications Acetaminophen/Codeine Phosphate (Tylenol With Codeine No.3 300mg/30mg) 1 - 2 tab PO Q4H PRN PRN Reason: Pain Last Admin: 04/04/17 08:04 Dose: 2 tab Hydromorphone HCl (Dilaudid History Tutor 15 Mg In Ns 30 Ml) 0 mg IV ASDIRECTED PRN; Protocol PRN Reason: Pain Last Admin: 04/05/17 20:11 Dose: 15 mg Hydroxyzine HCl (Vistaril) 50 mg IM Q4H PRN PRN Reason: Nausea Last Admin: 03/30/17 01:07 Dose: 50 mg Potassium Chloride/Dextrose/Sod Cl (D5 1/2 Ns W/ 20 Meq/L Kcl) 1,000 mls @ 125 mls/hr IV ASDIRECTED [facility] Last Admin: 04/06/17 02:12 Dose: 125 mls/hr Miconazole (Miconazole 2% Crm) 0 gm TOP BID PRN PRN Reason: Itching Last Admin: 04/05/17 14:55 Dose: 1 applic Naloxone HCl (Narcan) 0.1 mg IV ASDIRECTED PRN PRN Reason: decreased respiratory rate Nicotine (Habitrol) 7 mg TRDERM DAILY [facility] Last Admin: 04/06/17 08:06 Dose: 7 mg Ondansetron HCl (Zofran) 4 mg IVPUSH Q4H PRN PRN Reason: Nausea Last Admin: 04/06/17 08:58 Dose: 4 mg Pantoprazole Sodium (Protonix Iv) 40 mg IVPUSH Q24H [facility] Last Admin: 04/05/17 17:48 Dose: 40 mg Prazosin HCl (Minpress) 4 mg PO BEDTIME [facility]NA Propranolol HCl (Inderal La) 80 mg PO DAILY [facility] Last Admin: 04/06/17 08:09 Dose: 80 mg Discontinued Medications Cefoxitin Sodium (Mefoxin) Confirm Administered Dose 2 gm .ROUTE .STK-MED ONE Stop: 04/04/17 13:14 Dexamethasone (Dexamethasone) Confirm Administered Dose 4 mg .ROUTE .STK-MED ONE Stop: 03/29/17 13:16 Dexamethasone (Dexamethasone) Confirm Administered Dose 4 mg .ROUTE .STK-MED ONE Stop: 04/04/17 11:28 Fentanyl (Sublimaze) Confirm Administered Dose 250 mcg .ROUTE .STK-MED ONE Stop: 04/04/17 11:28 Fentanyl (Sublimaze) Confirm Administered Dose 100 mcg .ROUTE .STK-MED ONE Stop: 04/04/17 13:31 Fentanyl Citrate (Fentanyl) Confirm Administered Dose 500 mcg .ROUTE .STK-MED ONE Stop: 03/29/17 13:15 Fentanyl Citrate (Fentanyl In Ns 20 Mcg/Ml 30 Ml History Tutor) 0 mcg IV ASDIRECTED PRN; Protocol PRN Reason: PAIN Last Admin: 04/01/17 21:32 Dose: 600 mcg Glycopyrrolate (Robinul) Confirm Administered Dose 1 mg .ROUTE .STK-MED ONE Stop: 03/29/17 13:16 Glycopyrrolate (Robinul) Confirm Administered Dose 1 mg .ROUTE .STK-MED ONE Stop: 04/04/17 11:28 Hydroxyzine HCl (Vistaril) 75 mg IM ONETIME ONE Stop: 04/04/17 13:36 Last Admin: 04/04/17 13:40 Dose: 75 mg Cefoxitin Sodium 2 gm/ Sodium (Chloride) 50 mls @ 100 mls/hr IV ONCALL ONE Stop: 03/29/17 13:29 Last Admin: 03/29/17 12:33 Dose: 100 mls/hr Dextrose/Lactated Ringer's (Dextrose 5%-Lactated Ringers) 1,000 mls @ 500 mls/ hr IV ONETIME ONE Stop: 03/29/17 14:29 Last Admin: 03/29/17 12:32 Dose: 500 mls/hr Lactated Ringer's (Ringers, Lactated) 1,000 mls @ 100 mls/hr IV ASDIRECTED YUL[facility]NA Lactated Ringer's (Ringers, Lactated) Confirm Administered Dose 1,000 mls @ as directed .ROUTE .STK-MED ONE Stop: 03/29/17 13:57 Potassium Chloride/Dextrose/Sod Cl (D5 1/2 Ns W/ 20 Meq/L Kcl) 1,000 mls @ 150 mls/hr IV ASDIRECTED YULIANA Last Infusion: 04/01/17 06:48 Dose: 50 mls/hr Lactated Ringer's (Ringers, Lactated) 500 mls @ 500 mls/hr IV .BOLUS YULIANA Stop: 03/29/17 21:46 Last Admin: 03/29/17 21:00 Dose: 500 mls/hr Hetastarch/Sodium Chloride (Hetastarch 6% In Normal Saline) 500 mls @ 500 mls/ hr IV ONETIME ONE Stop: 03/30/17 01:19 Last Admin: 03/30/17 00:33 Dose: 500 mls/hr Potassium Chloride/Dextrose/Sod Cl (D5 1/2 Ns W/ 20 Meq/L Kcl) 1,000 mls @ 25 mls/hr IV ASDIRECTED YULIANA Last Admin: 04/03/17 17:05 Dose: 50 mls/hr Lactated Ringer's (Ringers, Lactated) Confirm Administered Dose 1,000 mls @ as directed .ROUTE .STK-MED ONE Stop: 04/04/17 13:11 Influenza Virus Vaccine (Pharmacy To Dose - Influenza Vaccine) 1 each IM ONETIME ONE Stop: 03/31/17 09:01 Influenza Virus Vaccine (Fluzone Quad ) 60 mcg IM .ONCE ONE Stop: 03/29/17 17:16 Last Admin: 03/29/17 18:48 Dose: Not Given Influenza Virus Vaccine (Fluzone Quad ) 60 mcg IM .ONCE ONE Stop: 03/31/17 10:01 Last Admin: 03/31/17 14:37 Dose: 60 mcg Midazolam HCl (Versed 1 Mg/Ml) Confirm Administered Dose 2 mg .ROUTE .STK-MED ONE Stop: 04/04/17 11:28 Naloxone HCl (Narcan) 0.1 mg IV ASDIRECTED PRN PRN Reason: RESP DISTRESS Neostigmine Methylsulfate (Neostigmine) Confirm Administered Dose 5 mg .ROUTE .STK-MED ONE Stop: 03/29/17 13:16 Neostigmine Methylsulfate (Neostigmine) Confirm Administered Dose 5 mg .ROUTE .STK-MED ONE Stop: 04/04/17 11:28 Ondansetron HCl (Zofran) Confirm Administered Dose 4 mg .ROUTE .STK-MED ONE Stop: 03/29/17 13:16 Ondansetron HCl (Zofran) 4 mg IVPUSH Q6H PRN PRN Reason: Nausea/Vomiting Last Admin: 04/05/17 08:12 Dose: 4 mg Ondansetron HCl (Zofran) Confirm Administered Dose 4 mg .ROUTE .STK-MED ONE Stop: 03/29/17 15:47 Last Admin: 03/29/17 15:57 Dose: 4 mg Ondansetron HCl (Zofran) Confirm Administered Dose 4 mg .ROUTE .STK-MED ONE Stop: 04/04/17 11:28 Pantoprazole Sodium (Protonix Iv) 40 mg IVPUSH DAILY [facility] Last Admin: 03/29/17 18:01 Dose: 40 mg Prazosin HCl (Minpress) 4 mg PO QPM YULIANA Last Admin: 04/05/17 21:32 Dose: 4 mg Propofol (Diprivan 20 Ml) Confirm Administered Dose 200 mg .ROUTE .STK-MED ONE Stop: 03/29/17 13:16 Propofol (Diprivan 20 Ml) Confirm Administered Dose 200 mg .ROUTE .STK-MED ONE Stop: 04/04/17 11:28 Rocuronium [place] Fawn (Zemuron) Confirm Administered Dose 50 mg .ROUTE .STK-MED ONE Stop: 03/29/17 13:16 Rocuronium Rising Fawn (Zemuron) Confirm Administered Dose 50 mg .ROUTE .STK-MED ONE Stop: 04/04/17 11:28 Succinylcholine Chloride (Quelicin) Confirm Administered Dose 200 mg .ROUTE .STK -MED ONE Stop: 03/29/17 13:16 Succinylcholine Chloride (Quelicin) Confirm Administered Dose 200 mg .ROUTE .STK -MED ONE Stop: 04/04/17 11:28 - Exam Wound/Incisions: Drainage (Intercede is present in wound ) General: Alert, Oriented, Cooperative, No Acute Distress Lungs: Clear to Auscultation, Normal Respiratory Effort Cardiovascular: Regular Rate, Regular Rhythm GI/Abdominal Exam: Normal Bowel Sounds, Non-Tender, Other (Intercede is protruding through abdominal wall which was removed. ) Extremities: Normal Inspection, Normal Range of Motion, Non-Tender, No Pedal Edema, Normal Capillary Refill Skin: Warm, Dry, Intact Neurological: No New Focal Deficit Psy/Mental Status: Alert, Normal Affect, Normal Mood - Problem List & Annotations (1) Small bowel obstruction SNOMED Code(s): 693485765 Code(s): K56.609 - UNSP INTESTNL OBST, UNSP TO PARTIAL VERSUS COMPLETE OBST Status: Acute Current Visit: Yes - Problem List Review Problem List Initiated/Reviewed/Updated: Yes - My Orders Last 24 Hours: Active Orders 24 hr Category Date Time Status Central Line Assessment [RC] QSHIFT Care 04/06/17 09:31 Ordered Supplement (Dietary) [Dietary Supplements] [RC] Care 04/06/17 09:37 Ordered TIDMEALS Consult to Dietary [Consult to [employer]] [CONS] Cons 04/07/17 08:00 Ordered Routine CBC W/O DIFF,HEMOGRAM [HEME] DAILY Lab 04/07/17 05:11 Ordered CBC W/O DIFF,HEMOGRAM [HEME] DAILY Lab 04/08/17 05:11 Ordered CBC W/O DIFF,HEMOGRAM [HEME] DAILY Lab 04/09/17 05:11 Ordered CBC W/O DIFF,HEMOGRAM [HEME] DAILY Lab 04/10/17 05:11 Ordered MAGNESIUM [CHEM] Routine Lab 04/07/17 05:11 Ordered PHOSPHORUS [CHEM] Routine Lab 04/07/17 05:11 Ordered Miconazole [Miconazole 2% Crm] Med 04/05/17 12:16 Active 0 gm TOP BID PRN Ondansetron [Zofran] Med 04/05/17 12:15 Active 4 mg IVPUSH Q4H PRN Prazosin [Minpress] Med 04/06/17 21:00 Active 4 mg PO BEDTIME Central Line PICC Insertion [Central Venous Line Oth 04/06/17 09:30 Ordered Insertion] [OM.PC] Routine Medication Orders Acetaminophen/Codeine Phosphate (Tylenol With Codeine No.3 300mg/30mg) 1 - 2 tab PO Q4H PRN PRN Reason: Pain Last Admin: 04/04/17 08:04 Dose: 2 tab Admin: 04/04/17 03:35 Dose: 2 tab Admin: 04/03/17 23:49 Dose: 2 tab Admin: 04/03/17 19:53 Dose: 2 tab Admin: 04/03/17 16:18 Dose: 2 tab Admin: 04/03/17 11:59 Dose: 2 tab Admin: 04/03/17 08:06 Dose: 2 tab Admin: 04/03/17 03:11 Dose: 2 tab Admin: 04/02/17 19:48 Dose: 2 tab Admin: 04/02/17 15:25 Dose: 2 tab Admin: 04/02/17 10:25 Dose: 2 tab Hydromorphone HCl (Dilaudid History Tutor 15 Mg In Ns 30 Ml) 0 mg IV ASDIRECTED PRN; Protocol PRN Reason: Pain Last Admin: 04/05/17 20:11 Dose: 15 mg Admin: 04/05/17 02:39 Dose: 15 mg Admin: 04/04/17 13:43 Dose: 15 mg Hydroxyzine HCl (Vistaril) 50 mg IM Q4H PRN PRN Reason: Nausea Last Admin: 03/30/17 01:07 Dose: 50 mg Potassium Chloride/Dextrose/Sod Cl (D5 1/2 Ns W/ 20 Meq/L Kcl) 1,000 mls @ 125 mls/hr IV ASDIRECTED [facility] Last Admin: 04/06/17 02:12 Dose: 125 mls/hr Infusion: 04/06/17 02:12 Dose: 125 mls/hr Admin: 04/05/17 19:36 Dose: 125 mls/hr Infusion: 04/05/17 19:23 Dose: 125 mls/hr Admin: 04/05/17 11:23 Dose: 125 mls/hr Infusion: 04/05/17 11:22 Dose: 125 mls/hr Admin: 04/05/17 03:22 Dose: 125 mls/hr Infusion: 04/05/17 03:15 Dose: 125 mls/hr Admin: 04/04/17 19:15 Dose: 125 mls/hr Miconazole (Miconazole 2% Crm) 0 gm TOP BID PRN PRN Reason: Itching Last Admin: 04/05/17 14:55 Dose: 1 applic Naloxone HCl (Narcan) 0.1 mg IV ASDIRECTED PRN PRN Reason: decreased respiratory rate Nicotine (Habitrol) 7 mg TRDERM DAILY [facility] Last Admin: 04/06/17 08:06 Dose: 7 mg Admin: 04/05/17 08:13 Dose: 7 mg Admin: 04/04/17 14:28 Dose: 7 mg Admin: 04/03/17 08:07 Dose: 7 mg Admin: 04/02/17 08:35 Dose: 7 mg Admin: 04/01/17 08:51 Dose: 7 mg Admin: 03/31/17 08:31 Dose: 7 mg Admin: 03/30/17 08:10 Dose: 7 mg Admin: 03/29/17 17:56 Dose: 7 mg Ondansetron HCl (Zofran) 4 mg IVPUSH Q4H PRN PRN Reason: Nausea Last Admin: 04/06/17 08:58 Dose: 4 mg Pantoprazole Sodium (Protonix Iv) 40 mg IVPUSH Q24H [facility] Last Admin: 04/05/17 17:48 Dose: 40 mg Admin: 04/04/17 18:28 Dose: 40 mg Admin: 04/03/17 17:37 Dose: 40 mg Admin: 04/02/17 17:09 Dose: 40 mg Admin: 04/01/17 17:00 Dose: 40 mg Admin: 03/31/17 17:31 Dose: 40 mg Admin: 03/30/17 17:39 Dose: 40 mg Prazosin HCl (Minpress) 4 mg PO BEDTIME [facility]NA Propranolol HCl (Inderal La) 80 mg PO DAILY [facility] Last Admin: 04/06/17 08:09 Dose: 80 mg Admin: 04/05/17 08:16 Dose: 80 mg Admin: 04/04/17 13:06 Dose: Admin: 04/03/17 08:07 Dose: 80 mg Admin: 04/02/17 08:35 Dose: 80 mg Admin: 04/01/17 08:43 Dose: 80 mg Admin: 03/31/17 08:32 Dose: 80 mg Admin: 03/30/17 08:10 Dose: 80 mg Admin: 03/29/17 18:28 Dose: 80 mg - Assessment Assessment (Free Text/Narrative):: 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 Some Intercede was removed. - Plan Plan (Free Text/Narrative):: Ensure clear. Place PICC for TPN. She needs more nutrition.
[2017-04-06] MEDS: HYDROmorphone/Normal Saline 15 MG/30 ML PCA IV PRN (14:08)
[2017-04-06] MEDS: Pantoprazole 40 MG Vial IVPUSH SCH (17:10)
[2017-04-06] MEDS: Prazosin 1 MG Cap PO SCH (20:13)
[2017-04-07] MEDS: D5 1/2 NS w/ 20 mEq/L KCl 1,000 ML IV SCH ×2 (02:08→10:14)
--- NOTE | 2017-04-07 09:11 | OR ---
DATE OF PROCEDURE: 04/04/2017 PREOPERATIVE DIAGNOSIS: Abdominal dehiscence. POSTOPERATIVE DIAGNOSIS: Abdominal dehiscence. PROCEDURE: Exploratory laparotomy, closure of abdominal dehiscence with retention sutures. ANESTHESIA: General endotracheal. INDICATION: This is a 36-year-old white female who has had multiple prior abdominal operations. These include a Nabil-en-Y gastric bypass, cholecystectomy, placement of mesh for hernia repair, subsequently removal of the mesh with infection, and multiple small bowel obstructions. About six days ago she was taken to the operating room for an exploratory laparotomy because of small bowel obstruction. This all involved detorsing a volvulus and excising two small strictures with primary anastomoses. She suffered dehiscence and is taken to the operating room today for repair of this dehiscence. I counseled her for surgery including risks and alternatives, and she gave her informed consent to proceed. DESCRIPTION OF PROCEDURE: After adequate general endotracheal anesthesia was obtained, a Boston catheter was placed. Her abdomen was prepped and draped in the usual sterile fashion. Time-out was held. The #2 Vicryl sutures remaining were removed. The abdominal incision was freed up on all sides. The bowel was reduced into the abdomen, the abdomen was then copiously irrigated with warm saline and suctioned dry, all looked well. Multiple interrupted stitches of #1 Prolene were placed going through the skin and the muscle, but not all the way into the peritoneal cavity. These were placed, and after they were all placed, we took several red rubber Poon catheters, cut them to short segments, and then cut a center hole out of each one of them. We brought the sutures up through the red rubber Poon catheters and out through the hole. These were all then sequentially tied, bringing the abdominal wall together. One area involved a simple interrupted stitch to bring the wound edges together a little better. A sterile dressing was applied. The anesthesia was reversed. She was extubated and brought to recovery room in good condition. Rigo Tillman MD /[id number] MTDD
[2017-04-07] MEDS: HYDROmorphone/Normal Saline 15 MG/30 ML PCA IV PRN (09:49)
[2017-04-07] MEDS: Nicotine 7 MG/24 Hr Patch TRDERM SCH (09:51)
[2017-04-07] MEDS: Propranolol 80 MG Cap.ER PO SCH (09:51)
--- NOTE | 2017-04-07 11:59 | PCM.SURGPN ---
- General Info Date of Service: 04/07/17 Date of Surgery/Procedure: 04/04/17 POD#: 3 Post-Op Diagnosis: Dehiscence Functional Status: Reports: Pain Controlled, Tolerating Diet (Clear liquid. Passing gas. ), Ambulating, Urinating, Incentive Spirometry - Review of Systems General: Reports: No Symptoms HEENT: Reports: No Symptoms Pulmonary: Reports: No Symptoms Cardiovascular: Reports: No Symptoms Gastrointestinal: Reports: No Symptoms, Flatus. Denies: Nausea, Vomiting Genitourinary: Reports: No Symptoms Musculoskeletal: Reports: No Symptoms Skin: Reports: No Symptoms Neurological: Reports: No Symptoms Psychiatric: Reports: No Symptoms - Patient Data Vitals - Most Recent: Last Vital Signs Temp 97.6 F 04/07/17 11:00 Pulse 80 04/07/17 11:00 Resp 18 04/07/17 11:00 BP 104/60 04/07/17 11:00 Pulse Ox 96 04/07/17 11:00 Weight - Most Recent: 170 lb 6.677 oz I&O - Last 24 Hours: Intake & Output 04/06/17 04/07/17 04/07/17 22:59 06:59 14:59 Intake Total 1588 2227 Output Total 900 950 Balance 688 1277 Lab Results Last 24 Hrs: Laboratory Results - last 24 hr 04/07/17 04/07/17 Range/Units 05:43 05:43 WBC 8.6 (4.5-11.0) K/uL RBC 4.05 (3.30-5.50) M/uL Hgb 11.7 L (12.0-15.0) g/dL Hct 36.1 (36.0-48.0) % MCV 89 (80-98) fL MCH 29 (27-31) pg MCHC 32 (32-36) % Plt Count 142 L (150-400) K/uL Phosphorus 4.0 (2.5-4.9) mg/dL Magnesium 1.5 L (1.8-2.4) mg/dL Gil Results Last 24 Hrs: Microbiology 04/04/17 12:20 Gram Stain - Final Abdomen - Incision Wound Culture - Final Staphylococcus Aureus Enterobacter Cloacae Complex Anaerobic Culture - Final NO GROWTH AFTER 3 DAYS Med Orders - Current: Current Medications Acetaminophen/Codeine Phosphate (Tylenol With Codeine No.3 300mg/30mg) 1 - 2 tab PO Q4H PRN PRN Reason: Pain Last Admin: 04/04/17 08:04 Dose: 2 tab Hydromorphone HCl (Dilaudid Management Internship 15 Mg In Ns 30 Ml) 0 mg IV ASDIRECTED PRN; Protocol PRN Reason: Pain Last Admin: 04/07/17 09:49 Dose: 15 mg Hydroxyzine HCl (Vistaril) 50 mg IM Q4H PRN PRN Reason: Nausea Last Admin: 03/30/17 01:07 Dose: 50 mg Potassium Chloride/Dextrose/Sod Cl (D5 1/2 Ns W/ 20 Meq/L Kcl) 1,000 mls @ 125 mls/hr IV ASDIRECTED YULIANA Last Admin: 04/07/17 10:14 Dose: 125 mls/hr Miconazole (Miconazole 2% Crm) 0 gm TOP BID PRN PRN Reason: Itching Last Admin: 04/05/17 14:55 Dose: 1 applic Naloxone HCl (Narcan) 0.1 mg IV ASDIRECTED PRN PRN Reason: decreased respiratory rate Nicotine (Habitrol) 7 mg TRDERM DAILY [facility] Last Admin: 04/07/17 09:51 Dose: 7 mg Ondansetron HCl (Zofran) 4 mg IVPUSH Q4H PRN PRN Reason: Nausea Last Admin: 04/06/17 21:54 Dose: 4 mg Pantoprazole Sodium (Protonix Iv) 40 mg IVPUSH Q24H [facility] Last Admin: 04/06/17 17:10 Dose: 40 mg Prazosin HCl (Minpress) 4 mg PO BEDTIME [facility] Last Admin: 04/06/17 20:13 Dose: 4 mg Propranolol HCl (Inderal La) 80 mg PO DAILY [facility] Last Admin: 04/07/17 09:51 Dose: 80 mg Discontinued Medications Cefoxitin Sodium (Mefoxin) Confirm Administered Dose 2 gm .ROUTE .STK-MED ONE Stop: 04/04/17 13:14 Dexamethasone (Dexamethasone) Confirm Administered Dose 4 mg .ROUTE .STK-MED ONE Stop: 03/29/17 13:16 Dexamethasone (Dexamethasone) Confirm Administered Dose 4 mg .ROUTE .STK-MED ONE Stop: 04/04/17 11:28 Fentanyl (Sublimaze) Confirm Administered Dose 250 mcg .ROUTE .STK-MED ONE Stop: 04/04/17 11:28 Fentanyl (Sublimaze) Confirm Administered Dose 100 mcg .ROUTE .STK-MED ONE Stop: 04/04/17 13:31 Fentanyl Citrate (Fentanyl) Confirm Administered Dose 500 mcg .ROUTE .STK-MED ONE Stop: 03/29/17 13:15 Fentanyl Citrate (Fentanyl In Ns 20 Mcg/Ml 30 Ml Management Internship) 0 mcg IV ASDIRECTED PRN; Protocol PRN Reason: PAIN Last Admin: 04/01/17 21:32 Dose: 600 mcg Glycopyrrolate (Robinul) Confirm Administered Dose 1 mg .ROUTE .STK-MED ONE Stop: 03/29/17 13:16 Glycopyrrolate (Robinul) Confirm Administered Dose 1 mg .ROUTE .STK-MED ONE Stop: 04/04/17 11:28 Hydroxyzine HCl (Vistaril) 75 mg IM ONETIME ONE Stop: 04/04/17 13:36 Last Admin: 04/04/17 13:40 Dose: 75 mg Cefoxitin Sodium 2 gm/ Sodium (Chloride) 50 mls @ 100 mls/hr IV ONCALL ONE Stop: 03/29/17 13:29 Last Admin: 03/29/17 12:33 Dose: 100 mls/hr Dextrose/Lactated Ringer's (Dextrose 5%-Lactated Ringers) 1,000 mls @ 500 mls/ hr IV ONETIME ONE Stop: 03/29/17 14:29 Last Admin: 03/29/17 12:32 Dose: 500 mls/hr Lactated Ringer's (Ringers, Lactated) 1,000 mls @ 100 mls/hr IV ASDIRECTED YULIANA Lactated Ringer's (Ringers, Lactated) Confirm Administered Dose 1,000 mls @ as directed .ROUTE .STK-MED ONE Stop: 03/29/17 13:57 Potassium Chloride/Dextrose/Sod Cl (D5 1/2 Ns W/ 20 Meq/L Kcl) 1,000 mls @ 150 mls/hr IV ASDIRECTED YULIANA Last Infusion: 04/01/17 06:48 Dose: 50 mls/hr Lactated Ringer's (Ringers, Lactated) 500 mls @ 500 mls/hr IV .BOLUS YULIANA Stop: 03/29/17 21:46 Last Admin: 03/29/17 21:00 Dose: 500 mls/hr Hetastarch/Sodium Chloride (Hetastarch 6% In Normal Saline) 500 mls @ 500 mls/ hr IV ONETIME ONE Stop: 03/30/17 01:19 Last Admin: 03/30/17 00:33 Dose: 500 mls/hr Potassium Chloride/Dextrose/Sod Cl (D5 1/2 Ns W/ 20 Meq/L Kcl) 1,000 mls @ 25 mls/hr IV ASDIRECTED YULIANA Last Admin: 04/03/17 17:05 Dose: 50 mls/hr Lactated Ringer's (Ringers, Lactated) Confirm Administered Dose 1,000 mls @ as directed .ROUTE .STK-MED ONE Stop: 04/04/17 13:11 Influenza Virus Vaccine (Pharmacy To Dose - Influenza Vaccine) 1 each IM ONETIME ONE Stop: 03/31/17 09:01 Influenza Virus Vaccine (Fluzone Quad ) 60 mcg IM .ONCE ONE Stop: 03/29/17 17:16 Last Admin: 03/29/17 18:48 Dose: Not Given Influenza Virus Vaccine (Fluzone Quad ) 60 mcg IM .ONCE ONE Stop: 03/31/17 10:01 Last Admin: 03/31/17 14:37 Dose: 60 mcg Midazolam HCl (Versed 1 Mg/Ml) Confirm Administered Dose 2 mg .ROUTE .STK-MED ONE Stop: 04/04/17 11:28 Naloxone HCl (Narcan) 0.1 mg IV ASDIRECTED PRN PRN Reason: RESP DISTRESS Neostigmine Methylsulfate (Neostigmine) Confirm Administered Dose 5 mg .ROUTE .STK-MED ONE Stop: 03/29/17 13:16 Neostigmine Methylsulfate (Neostigmine) Confirm Administered Dose 5 mg .ROUTE .STK-MED ONE Stop: 04/04/17 11:28 Ondansetron HCl (Zofran) Confirm Administered Dose 4 mg .ROUTE .STK-MED ONE Stop: 03/29/17 13:16 Ondansetron HCl (Zofran) 4 mg IVPUSH Q6H PRN PRN Reason: Nausea/Vomiting Last Admin: 04/05/17 08:12 Dose: 4 mg Ondansetron HCl (Zofran) Confirm Administered Dose 4 mg .ROUTE .STK-MED ONE Stop: 03/29/17 15:47 Last Admin: 03/29/17 15:57 Dose: 4 mg Ondansetron HCl (Zofran) Confirm Administered Dose 4 mg .ROUTE .STK-MED ONE Stop: 04/04/17 11:28 Pantoprazole Sodium (Protonix Iv) 40 mg IVPUSH DAILY [facility] Last Admin: 03/29/17 18:01 Dose: 40 mg Prazosin HCl (Minpress) 4 mg PO QPM [facility] Last Admin: 04/05/17 21:32 Dose: 4 mg Propofol (Diprivan 20 Ml) Confirm Administered Dose 200 mg .ROUTE .STK-MED ONE Stop: 03/29/17 13:16 Propofol (Diprivan 20 Ml) Confirm Administered Dose 200 mg .ROUTE .STK-MED ONE Stop: 04/04/17 11:28 Rocuronium [place] (Zemuron) Confirm Administered Dose 50 mg .ROUTE .STK-MED ONE Stop: 03/29/17 13:16 Rocuronium [place] (Zemuron) Confirm Administered Dose 50 mg .ROUTE .STK-MED ONE Stop: 04/04/17 11:28 Succinylcholine Chloride (Quelicin) Confirm Administered Dose 200 mg .ROUTE .STK -MED ONE Stop: 03/29/17 13:16 Succinylcholine Chloride (Quelicin) Confirm Administered Dose 200 mg .ROUTE .STK -MED ONE Stop: 04/04/17 11:28 - Exam Wound/Incisions: Drainage (Intercede coming out between retention sutures. ) General: Alert, Oriented, Cooperative, No Acute Distress Lungs: Clear to Auscultation, Normal Respiratory Effort Cardiovascular: Regular Rate, Regular Rhythm GI/Abdominal Exam: Normal Bowel Sounds, Other (Intercede is coming out between her retention sutures. ) Extremities: Pedal Edema Skin: Warm Neurological: No New Focal Deficit Psy/Mental Status: Alert, Normal Affect, Normal Mood - Problem List & Annotations (1) Small bowel obstruction SNOMED Code(s): 498315560 Code(s): K56.609 - UNSP INTESTNL OBST, UNSP TO PARTIAL VERSUS COMPLETE OBST Status: Acute Current Visit: Yes - Problem List Review Problem List Initiated/Reviewed/Updated: Yes - My Orders Last 24 Hours: Active Orders 24 hr Category Date Time Status May Shower [RC] ASDIRECTED Care 04/07/17 10:17 Active Consult to Dietary [Consult to Dietary Director] [CONS] Cons 04/07/17 08:00 Active Routine Full Liquid Diet [DIET] Diet 04/07/17 Lunch Ordered CBC W/O DIFF,HEMOGRAM [HEME] DAILY Lab 04/08/17 05:11 Ordered CBC W/O DIFF,HEMOGRAM [HEME] DAILY Lab 04/09/17 05:11 Ordered CBC W/O DIFF,HEMOGRAM [HEME] DAILY Lab 04/10/17 05:11 Ordered Prazosin [Minpress] Med 04/06/17 21:00 Active 4 mg PO BEDTIME Medication Orders Acetaminophen/Codeine Phosphate (Tylenol With Codeine No.3 300mg/30mg) 1 - 2 tab PO Q4H PRN PRN Reason: Pain Last Admin: 04/04/17 08:04 Dose: 2 tab Admin: 04/04/17 03:35 Dose: 2 tab Admin: 04/03/17 23:49 Dose: 2 tab Admin: 04/03/17 19:53 Dose: 2 tab Admin: 04/03/17 16:18 Dose: 2 tab Admin: 04/03/17 11:59 Dose: 2 tab Admin: 04/03/17 08:06 Dose: 2 tab Admin: 04/03/17 03:11 Dose: 2 tab Admin: 04/02/17 19:48 Dose: 2 tab Admin: 04/02/17 15:25 Dose: 2 tab Admin: 04/02/17 10:25 Dose: 2 tab Hydromorphone HCl (Dilaudid Management Internship 15 Mg In Ns 30 Ml) 0 mg IV ASDIRECTED PRN; Protocol PRN Reason: Pain Last Admin: 04/07/17 09:49 Dose: 15 mg Admin: 04/06/17 14:08 Dose: 15 mg Admin: 04/05/17 20:11 Dose: 15 mg Admin: 04/05/17 02:39 Dose: 15 mg Admin: 04/04/17 13:43 Dose: 15 mg Hydroxyzine HCl (Vistaril) 50 mg IM Q4H PRN PRN Reason: Nausea Last Admin: 03/30/17 01:07 Dose: 50 mg Potassium Chloride/Dextrose/Sod Cl (D5 1/2 Ns W/ 20 Meq/L Kcl) 1,000 mls @ 125 mls/hr IV ASDIRECTED YULIANA Last Admin: 04/07/17 10:14 Dose: 125 mls/hr Infusion: 04/07/17 10:08 Dose: 125 mls/hr Admin: 04/07/17 02:08 Dose: 125 mls/hr Infusion: 04/07/17 02:08 Dose: 125 mls/hr Admin: 04/06/17 18:18 Dose: 125 mls/hr Infusion: 04/06/17 18:18 Dose: 125 mls/hr Admin: 04/06/17 10:30 Dose: 125 mls/hr Infusion: 04/06/17 10:12 Dose: 125 mls/hr Admin: 04/06/17 02:12 Dose: 125 mls/hr Infusion: 04/06/17 02:12 Dose: 125 mls/hr Admin: 04/05/17 19:36 Dose: 125 mls/hr Infusion: 04/05/17 19:23 Dose: 125 mls/hr Admin: 04/05/17 11:23 Dose: 125 mls/hr Infusion: 04/05/17 11:22 Dose: 125 mls/hr Admin: 04/05/17 03:22 Dose: 125 mls/hr Infusion: 04/05/17 03:15 Dose: 125 mls/hr Admin: 04/04/17 19:15 Dose: 125 mls/hr Miconazole (Miconazole 2% Crm) 0 gm TOP BID PRN PRN Reason: Itching Last Admin: 04/05/17 14:55 Dose: 1 applic Naloxone HCl (Narcan) 0.1 mg IV ASDIRECTED PRN PRN Reason: decreased respiratory rate Nicotine (Habitrol) 7 mg TRDERM DAILY [facility] Last Admin: 04/07/17 09:51 Dose: 7 mg Admin: 04/06/17 08:06 Dose: 7 mg Admin: 04/05/17 08:13 Dose: 7 mg Admin: 04/04/17 14:28 Dose: 7 mg Admin: 04/03/17 08:07 Dose: 7 mg Admin: 04/02/17 08:35 Dose: 7 mg Admin: 04/01/17 08:51 Dose: 7 mg Admin: 03/31/17 08:31 Dose: 7 mg Admin: 03/30/17 08:10 Dose: 7 mg Admin: 03/29/17 17:56 Dose: 7 mg Ondansetron HCl (Zofran) 4 mg IVPUSH Q4H PRN PRN Reason: Nausea Last Admin: 04/06/17 21:54 Dose: 4 mg Admin: 04/06/17 17:10 Dose: 4 mg Admin: 04/06/17 08:58 Dose: 4 mg Pantoprazole Sodium (Protonix Iv) 40 mg IVPUSH Q24H [facility] Last Admin: 04/06/17 17:10 Dose: 40 mg Admin: 04/05/17 17:48 Dose: 40 mg Admin: 04/04/17 18:28 Dose: 40 mg Admin: 04/03/17 17:37 Dose: 40 mg Admin: 04/02/17 17:09 Dose: 40 mg Admin: 04/01/17 17:00 Dose: 40 mg Admin: 03/31/17 17:31 Dose: 40 mg Admin: 03/30/17 17:39 Dose: 40 mg Prazosin HCl (Minpress) 4 mg PO BEDTIME [facility] Last Admin: 04/06/17 20:13 Dose: 4 mg Propranolol HCl (Inderal La) 80 mg PO DAILY [facility] Last Admin: 04/07/17 09:51 Dose: 80 mg Admin: 04/06/17 08:09 Dose: 80 mg Admin: 04/05/17 08:16 Dose: 80 mg Admin: 04/04/17 13:06 Dose: Admin: 04/03/17 08:07 Dose: 80 mg Admin: 04/02/17 08:35 Dose: 80 mg Admin: 04/01/17 08:43 Dose: 80 mg Admin: 03/31/17 08:32 Dose: 80 mg Admin: 03/30/17 08:10 Dose: 80 mg Admin: 03/29/17 18:28 Dose: 80 mg - Assessment Assessment (Free Text/Narrative):: She appears to be doing well. She has chronically low platelets so have not given her Lovenox. It appears she has stable platelets at greater than 100, 000. She is passing gas. She is tolerating a clear liquid diet. She has pedal edema which I have not seen before. - Plan Plan (Free Text/Narrative):: Lovenox. TKO IV. Hold PICC and TPN. Advance diet to full liquid. Have spoken with dietary who will advise supplements... D/C LATASHA.
[2017-04-07] MEDS ORDERED: Enoxaparin 30 MG/0.3 ML Syringe SUBCUT SCH (12:00)
[2017-04-07] MEDS ORDERED: D5 1/2 NS w/ 20 mEq/L KCl 1,000 ML IV SCH (12:00)
[2017-04-07] MEDS: Acetaminophen/Codeine 300-30 MG Tab PO PRN ×3 (14:47→23:33)
[2017-04-07] MEDS: Pantoprazole 40 MG Vial IVPUSH SCH (17:04)
[2017-04-07] MEDS: Prazosin 1 MG Cap PO SCH (22:31)
[2017-04-08] MEDS: Acetaminophen/Codeine 300-30 MG Tab PO PRN ×5 (03:38→20:07)
--- NOTE | 2017-04-08 06:40 | PCM.SURGPN ---
- General Info Date of Service: 04/08/17 Date of Surgery/Procedure: 04/04/17 POD#: 4 Post-Op Diagnosis: Dehiscence Admission Diagnosis/Problem: Small bowel obstruction Functional Status: Reports: Pain Controlled, Tolerating Diet, Ambulating, Urinating, Incentive Spirometry - Review of Systems General: Reports: No Symptoms HEENT: Reports: No Symptoms Pulmonary: Reports: No Symptoms Cardiovascular: Reports: No Symptoms Gastrointestinal: Reports: No Symptoms, Flatus, Other (Had BM.) Genitourinary: Reports: No Symptoms Musculoskeletal: Reports: No Symptoms Skin: Reports: No Symptoms Neurological: Reports: No Symptoms Psychiatric: Reports: No Symptoms - Patient Data Vitals - Most Recent: Last Vital Signs Temp 98.6 F 04/08/17 00:00 Pulse 84 04/08/17 00:00 Resp 16 04/08/17 00:00 BP 103/57 L 04/08/17 00:00 Pulse Ox 97 04/08/17 00:00 Weight - Most Recent: 170 lb 6.677 oz I&O - Last 24 Hours: Intake & Output 04/07/17 04/07/17 04/08/17 14:59 22:59 06:59 Intake Total 900 2410 1468 Output Total 200 1600 Balance 900 2210 -132 Lab Results Last 24 Hrs: Laboratory Results - last 24 hr 04/08/17 Range/Units 03:58 WBC 6.5 (4.5-11.0) K/uL RBC 3.19 L (3.30-5.50) M/uL Hgb 9.5 L D (12.0-15.0) g/dL Hct 28.4 L (36.0-48.0) % MCV 89 (80-98) fL MCH 30 (27-31) pg MCHC 34 (32-36) % Plt Count 82 L (150-400) K/uL Gil Results Last 24 Hrs: Microbiology 04/04/17 12:20 Gram Stain - Final Abdomen - Incision Wound Culture - Final Staphylococcus Aureus Enterobacter [place]ae Complex Anaerobic Culture - Final NO GROWTH AFTER 3 DAYS Med Orders - Current: Current Medications Acetaminophen/Codeine Phosphate (Tylenol With Codeine No.3 300mg/30mg) 1 - 2 tab PO Q4H PRN PRN Reason: Pain Last Admin: 04/08/17 03:38 Dose: 2 tab Hydroxyzine HCl (Vistaril) 50 mg IM Q4H PRN PRN Reason: Nausea Last Admin: 03/30/17 01:07 Dose: 50 mg Potassium Chloride/Dextrose/Sod Cl (D5 1/2 Ns W/ 20 Meq/L Kcl) 1,000 mls @ 25 mls/hr IV ASDIRECTED [facility] Miconazole (Miconazole 2% Crm) 0 gm TOP BID PRN PRN Reason: Itching Last Admin: 04/05/17 14:55 Dose: 1 applic Naloxone HCl (Narcan) 0.1 mg IV ASDIRECTED PRN PRN Reason: decreased respiratory rate Nicotine (Habitrol) 7 mg TRDERM DAILY [facility] Last Admin: 04/07/17 09:51 Dose: 7 mg Ondansetron HCl (Zofran) 4 mg IVPUSH Q4H PRN PRN Reason: Nausea Last Admin: 04/06/17 21:54 Dose: 4 mg Pantoprazole Sodium (Protonix Iv) 40 mg IVPUSH Q24H [facility] Last Admin: 04/07/17 17:04 Dose: 40 mg Prazosin HCl (Minpress) 4 mg PO BEDTIME [facility] Last Admin: 04/07/17 22:31 Dose: 4 mg Propranolol HCl (Inderal La) 80 mg PO DAILY [facility] Last Admin: 04/07/17 09:51 Dose: 80 mg Discontinued Medications Cefoxitin Sodium (Mefoxin) Confirm Administered Dose 2 gm .ROUTE .STK-MED ONE Stop: 04/04/17 13:14 Dexamethasone (Dexamethasone) Confirm Administered Dose 4 mg .ROUTE .STK-MED ONE Stop: 03/29/17 13:16 Dexamethasone (Dexamethasone) Confirm Administered Dose 4 mg .ROUTE .STK-MED ONE Stop: 04/04/17 11:28 Enoxaparin Sodium (Lovenox) 30 mg SUBCUT DAILY [facility] Last Admin: 04/07/17 12:45 Dose: 30 mg Fentanyl (Sublimaze) Confirm Administered Dose 250 mcg .ROUTE .STK-MED ONE Stop: 04/04/17 11:28 Fentanyl (Sublimaze) Confirm Administered Dose 100 mcg .ROUTE .STK-MED ONE Stop: 04/04/17 13:31 Fentanyl Citrate (Fentanyl) Confirm Administered Dose 500 mcg .ROUTE .STK-MED ONE Stop: 03/29/17 13:15 Fentanyl Citrate (Fentanyl In Ns 20 Mcg/Ml 30 Ml Wire Roller) 0 mcg IV ASDIRECTED PRN; Protocol PRN Reason: PAIN Last Admin: 04/01/17 21:32 Dose: 600 mcg Glycopyrrolate (Robinul) Confirm Administered Dose 1 mg .ROUTE .STK-MED ONE Stop: 03/29/17 13:16 Glycopyrrolate (Robinul) Confirm Administered Dose 1 mg .ROUTE .STK-MED ONE Stop: 04/04/17 11:28 Hydromorphone HCl (Dilaudid [place] 15 Mg In Ns 30 Ml) 0 mg IV ASDIRECTED PRN; Protocol PRN Reason: Pain Last Admin: 04/07/17 09:49 Dose: 15 mg Hydroxyzine HCl (Vistaril) 75 mg IM ONETIME ONE Stop: 04/04/17 13:36 Last Admin: 04/04/17 13:40 Dose: 75 mg Cefoxitin Sodium 2 gm/ Sodium (Chloride) 50 mls @ 100 mls/hr IV ONCALL ONE Stop: 03/29/17 13:29 Last Admin: 03/29/17 12:33 Dose: 100 mls/hr Dextrose/Lactated Ringer's (Dextrose 5%-Lactated Ringers) 1,000 mls @ 500 mls/ hr IV ONETIME ONE Stop: 03/29/17 14:29 Last Admin: 03/29/17 12:32 Dose: 500 mls/hr Lactated Ringer's (Ringers, Lactated) 1,000 mls @ 100 mls/hr IV ASDIRECTED [facility] Lactated Ringer's (Ringers, Lactated) Confirm Administered Dose 1,000 mls @ as directed .ROUTE .STK-MED ONE Stop: 03/29/17 13:57 Potassium Chloride/Dextrose/Sod Cl (D5 1/2 Ns W/ 20 Meq/L Kcl) 1,000 mls @ 150 mls/hr IV ASDIRECTED [facility] Last Infusion: 04/01/17 06:48 Dose: 50 mls/hr Lactated Ringer's (Ringers, Lactated) 500 mls @ 500 mls/hr IV .BOLUS [facility] Stop: 03/29/17 21:46 Last Admin: 03/29/17 21:00 Dose: 500 mls/hr Hetastarch/Sodium Chloride (Hetastarch 6% In Normal Saline) 500 mls @ 500 mls/ hr IV ONETIME ONE Stop: 03/30/17 01:19 Last Admin: 03/30/17 00:33 Dose: 500 mls/hr Potassium Chloride/Dextrose/Sod Cl (D5 1/2 Ns W/ 20 Meq/L Kcl) 1,000 mls @ 25 mls/hr IV ASDIRECTED [facility] Last Admin: 04/03/17 17:05 Dose: 50 mls/hr Lactated Ringer's (Ringers, Lactated) Confirm Administered Dose 1,000 mls @ as directed .ROUTE .STK-MED ONE Stop: 04/04/17 13:11 Potassium Chloride/Dextrose/Sod Cl (D5 1/2 Ns W/ 20 Meq/L Kcl) 1,000 mls @ 125 mls/hr IV ASDIRECTED [facility] Last Admin: 04/07/17 10:14 Dose: 125 mls/hr Magnesium Sulfate 2 gm/ Sodium (Chloride) 54 mls @ 25 mls/hr IV ONETIME ONE Stop: 04/07/17 15:09 Last Admin: 04/07/17 12:45 Dose: 25 mls/hr Influenza Virus Vaccine (Pharmacy To Dose - Influenza Vaccine) 1 each IM ONETIME ONE Stop: 03/31/17 09:01 Influenza Virus Vaccine (Fluzone Quad 2124-6764) 60 mcg IM .ONCE ONE Stop: 03/29/17 17:16 Last Admin: 03/29/17 18:48 Dose: Not Given Influenza Virus Vaccine (Fluzone Quad [id number]) 60 mcg IM .ONCE ONE Stop: 03/31/17 10:01 Last Admin: 03/31/17 14:37 Dose: 60 mcg Midazolam HCl (Versed 1 Mg/Ml) Confirm Administered Dose 2 mg .ROUTE .STK-MED ONE Stop: 04/04/17 11:28 Naloxone HCl (Narcan) 0.1 mg IV ASDIRECTED PRN PRN Reason: RESP DISTRESS Neostigmine Methylsulfate (Neostigmine) Confirm Administered Dose 5 mg .ROUTE .STK-MED ONE Stop: 03/29/17 13:16 Neostigmine Methylsulfate (Neostigmine) Confirm Administered Dose 5 mg .ROUTE .STK-MED ONE Stop: 04/04/17 11:28 Ondansetron HCl (Zofran) Confirm Administered Dose 4 mg .ROUTE .STK-MED ONE Stop: 03/29/17 13:16 Ondansetron HCl (Zofran) 4 mg IVPUSH Q6H PRN PRN Reason: Nausea/Vomiting Last Admin: 04/05/17 08:12 Dose: 4 mg Ondansetron HCl (Zofran) Confirm Administered Dose 4 mg .ROUTE .STK-MED ONE Stop: 03/29/17 15:47 Last Admin: 03/29/17 15:57 Dose: 4 mg Ondansetron HCl (Zofran) Confirm Administered Dose 4 mg .ROUTE .STK-MED ONE Stop: 04/04/17 11:28 Pantoprazole Sodium (Protonix Iv) 40 mg IVPUSH DAILY [facility] Last Admin: 03/29/17 18:01 Dose: 40 mg Prazosin HCl (Minpress) 4 mg PO QPM [facility] Last Admin: 04/05/17 21:32 Dose: 4 mg Propofol (Diprivan 20 Ml) Confirm Administered Dose 200 mg .ROUTE .STK-MED ONE Stop: 03/29/17 13:16 Propofol (Diprivan 20 Ml) Confirm Administered Dose 200 mg .ROUTE .STK-MED ONE Stop: 04/04/17 11:28 Rocuronium [place] (Zemuron) Confirm Administered Dose 50 mg .ROUTE .STK-MED ONE Stop: 03/29/17 13:16 Rocuronium [place] (Zemuron) Confirm Administered Dose 50 mg .ROUTE .STK-MED ONE Stop: 04/04/17 11:28 Succinylcholine Chloride (Quelicin) Confirm Administered Dose 200 mg .ROUTE .STK -MED ONE Stop: 03/29/17 13:16 Succinylcholine Chloride (Quelicin) Confirm Administered Dose 200 mg .ROUTE .STK -MED ONE Stop: 04/04/17 11:28 - Exam Wound/Incisions: Drainage Quality Assessment: DVT Prophylaxis (Plts under 100,000 so will stop Lovenox. ) General: Alert, Oriented, Cooperative, No Acute Distress Lungs: Clear to Auscultation, Normal Respiratory Effort, Rhonchi Cardiovascular: Regular Rate GI/Abdominal Exam: Normal Bowel Sounds, Soft, Non-Tender Extremities: Normal Inspection, No Pedal Edema (Edema appears improved. ) Skin: Warm, Dry Neurological: No New Focal Deficit Psy/Mental Status: Alert, Normal Affect, Normal Mood - Problem List & Annotations (1) Small bowel obstruction SNOMED Code(s): 380460461 Code(s): K56.609 - UNSP INTESTNL OBST, UNSP TO PARTIAL VERSUS COMPLETE OBST Status: Acute Current Visit: Yes - Problem List Review Problem List Initiated/Reviewed/Updated: Yes - My Orders Last 24 Hours: Active Orders 24 hr Category Date Time Status May Shower [RC] ASDIRECTED Care 04/07/17 10:17 Active Consult to Dietary [Consult to Animal Maintenance Supervisor] [CONS] Cons 04/07/17 08:00 Active Routine Full Liquid Diet [DIET] Diet 04/07/17 Lunch Ordered Regular Diet [DIET] Diet 04/08/17 Breakfast Ordered CBC W/O DIFF,HEMOGRAM [HEME] DAILY Lab 04/09/17 05:11 Ordered CBC W/O DIFF,HEMOGRAM [HEME] DAILY Lab 04/10/17 05:11 Ordered D5 1/2 NS w/ 20 mEq/L KCl 1,000 ml Med 04/07/17 12:00 Active IV ASDIRECTED Drain Removal [OM.PC] Routine Oth 04/07/17 11:59 Ordered Medication Orders Acetaminophen/Codeine Phosphate (Tylenol With Codeine No.3 300mg/30mg) 1 - 2 tab PO Q4H PRN PRN Reason: Pain Last Admin: 04/08/17 03:38 Dose: 2 tab Admin: 04/07/17 23:33 Dose: 2 tab Admin: 04/07/17 19:26 Dose: 2 tab Admin: 04/07/17 14:47 Dose: 2 tab Admin: 04/04/17 08:04 Dose: 2 tab Admin: 04/04/17 03:35 Dose: 2 tab Admin: 04/03/17 23:49 Dose: 2 tab Admin: 04/03/17 19:53 Dose: 2 tab Admin: 04/03/17 16:18 Dose: 2 tab Admin: 04/03/17 11:59 Dose: 2 tab Admin: 04/03/17 08:06 Dose: 2 tab Admin: 04/03/17 03:11 Dose: 2 tab Admin: 04/02/17 19:48 Dose: 2 tab Admin: 04/02/17 15:25 Dose: 2 tab Admin: 04/02/17 10:25 Dose: 2 tab Hydroxyzine HCl (Vistaril) 50 mg IM Q4H PRN PRN Reason: Nausea Last Admin: 03/30/17 01:07 Dose: 50 mg Potassium Chloride/Dextrose/Sod Cl (D5 1/2 Ns W/ 20 Meq/L Kcl) 1,000 mls @ 25 mls/hr IV ASDIRECTED [facility] Miconazole (Miconazole 2% Crm) 0 gm TOP BID PRN PRN Reason: Itching Last Admin: 04/05/17 14:55 Dose: 1 applic Naloxone HCl (Narcan) 0.1 mg IV ASDIRECTED PRN PRN Reason: decreased respiratory rate Nicotine (Habitrol) 7 mg TRDERM DAILY [facility] Last Admin: 04/07/17 09:51 Dose: 7 mg Admin: 04/06/17 08:06 Dose: 7 mg Admin: 04/05/17 08:13 Dose: 7 mg Admin: 04/04/17 14:28 Dose: 7 mg Admin: 04/03/17 08:07 Dose: 7 mg Admin: 04/02/17 08:35 Dose: 7 mg Admin: 04/01/17 08:51 Dose: 7 mg Admin: 03/31/17 08:31 Dose: 7 mg Admin: 03/30/17 08:10 Dose: 7 mg Admin: 03/29/17 17:56 Dose: 7 mg Ondansetron HCl (Zofran) 4 mg IVPUSH Q4H PRN PRN Reason: Nausea Last Admin: 04/06/17 21:54 Dose: 4 mg Admin: 04/06/17 17:10 Dose: 4 mg Admin: 04/06/17 08:58 Dose: 4 mg Pantoprazole Sodium (Protonix Iv) 40 mg IVPUSH Q24H [facility] Last Admin: 04/07/17 17:04 Dose: 40 mg Admin: 04/06/17 17:10 Dose: 40 mg Admin: 04/05/17 17:48 Dose: 40 mg Admin: 04/04/17 18:28 Dose: 40 mg Admin: 04/03/17 17:37 Dose: 40 mg Admin: 04/02/17 17:09 Dose: 40 mg Admin: 04/01/17 17:00 Dose: 40 mg Admin: 03/31/17 17:31 Dose: 40 mg Admin: 03/30/17 17:39 Dose: 40 mg Prazosin HCl (Minpress) 4 mg PO BEDTIME [facility] Last Admin: 04/07/17 22:31 Dose: 4 mg Admin: 04/06/17 20:13 Dose: 4 mg Propranolol HCl (Inderal La) 80 mg PO DAILY [facility] Last Admin: 04/07/17 09:51 Dose: 80 mg Admin: 04/06/17 08:09 Dose: 80 mg Admin: 04/05/17 08:16 Dose: 80 mg Admin: 04/04/17 13:06 Dose: Admin: 04/03/17 08:07 Dose: 80 mg Admin: 04/02/17 08:35 Dose: 80 mg Admin: 04/01/17 08:43 Dose: 80 mg Admin: 03/31/17 08:32 Dose: 80 mg Admin: 03/30/17 08:10 Dose: 80 mg Admin: 03/29/17 18:28 Dose: 80 mg - Assessment Assessment (Free Text/Narrative):: Platelets down so will stop Lovenox. Tolerating dental soft diet. - Plan Plan (Free Text/Narrative):: Regular diet. Stop Lovenox.
[2017-04-08] MEDS: Ondansetron 4 MG/2 ML SDV IVPUSH PRN ×3 (10:12→20:12)
[2017-04-08] MEDS: Propranolol 80 MG Cap.ER PO SCH (10:37)
[2017-04-08] MEDS: Nicotine 7 MG/24 Hr Patch TRDERM SCH (10:43)
[2017-04-08] MEDS: Lansoprazole 30 MG Orally Disintegrating Tab.CR PO SCH (15:59)
[2017-04-08] MEDS: Prazosin 1 MG Cap PO SCH (20:07)
[2017-04-09] MEDS: Acetaminophen/Codeine 300-30 MG Tab PO PRN ×7 (02:09→22:29)
[2017-04-09] MEDS: Nicotine 7 MG/24 Hr Patch TRDERM SCH (09:09)
[2017-04-09] MEDS: Propranolol 80 MG Cap.ER PO SCH (09:09)
--- NOTE | 2017-04-09 16:14 | PCM.SURGPN ---
- General Info Date of Service: 04/09/17 Date of Surgery/Procedure: 04/04/17 POD#: 5 Post-Op Diagnosis: Dehiscence Functional Status: Reports: Pain Controlled, Tolerating Diet, Ambulating, Urinating, Incentive Spirometry - Review of Systems General: Reports: No Symptoms HEENT: Reports: No Symptoms Pulmonary: Reports: No Symptoms Cardiovascular: Reports: No Symptoms Gastrointestinal: Reports: No Symptoms, Flatus, Other (Having BMs.) Genitourinary: Reports: No Symptoms Musculoskeletal: Reports: No Symptoms Skin: Reports: Other (Her abdominal incision is "gapping" which allows Intercede to come out. No erythema. ) Neurological: Reports: No Symptoms Psychiatric: Reports: No Symptoms - Patient Data Vitals - Most Recent: Last Vital Signs Temp 98.1 F 04/09/17 10:58 Pulse 67 04/09/17 10:58 Resp 16 04/09/17 10:58 BP 95/63 04/09/17 10:58 Pulse Ox 96 04/09/17 10:58 Weight - Most Recent: 170 lb 6.677 oz I&O - Last 24 Hours: Intake & Output 04/09/17 04/09/17 04/09/17 06:59 14:59 22:59 Intake Total 1780 1300 650 Output Total 1000 1700 Balance 780 -400 650 Lab Results Last 24 Hrs: Laboratory Results - last 24 hr 04/09/17 Range/Units 04:34 WBC 8.7 (4.5-11.0) K/uL RBC 3.74 (3.30-5.50) M/uL Hgb 10.7 L (12.0-15.0) g/dL Hct 33.6 L (36.0-48.0) % MCV 90 (80-98) fL MCH 29 (27-31) pg MCHC 32 (32-36) % Plt Count 111 L (150-400) K/uL Med Orders - Current: Current Medications Acetaminophen/Codeine Phosphate (Tylenol With Codeine No.3 300mg/30mg) 1 - 2 tab PO Q4H PRN PRN Reason: Pain Last Admin: 04/09/17 14:53 Dose: 2 tab Hydroxyzine HCl (Vistaril) 50 mg IM Q4H PRN PRN Reason: Nausea Last Admin: 03/30/17 01:07 Dose: 50 mg Potassium Chloride/Dextrose/Sod Cl (D5 1/2 Ns W/ 20 Meq/L Kcl) 1,000 mls @ 25 mls/hr IV ASDIRECTED [facility] Last Admin: 04/08/17 07:51 Dose: 25 mls/hr Lansoprazole (Prevacid Solutab) 30 mg PO Q24H [facility] Last Admin: 04/08/17 15:59 Dose: 30 mg Miconazole (Miconazole 2% Crm) 0 gm TOP BID PRN PRN Reason: Itching Last Admin: 04/05/17 14:55 Dose: 1 applic Naloxone HCl (Narcan) 0.1 mg IV ASDIRECTED PRN PRN Reason: decreased respiratory rate Nicotine (Habitrol) 7 mg TRDERM DAILY [facility] Last Admin: 04/09/17 09:09 Dose: 7 mg Ondansetron HCl (Zofran) 4 mg IVPUSH Q4H PRN PRN Reason: Nausea Last Admin: 04/08/17 20:12 Dose: 4 mg Prazosin HCl (Minpress) 4 mg PO BEDTIME [facility] Last Admin: 04/08/17 20:07 Dose: 4 mg Propranolol HCl (Inderal La) 80 mg PO DAILY [facility] Last Admin: 04/09/17 09:09 Dose: 80 mg Discontinued Medications Cefoxitin Sodium (Mefoxin) Confirm Administered Dose 2 gm .ROUTE .STK-MED ONE Stop: 04/04/17 13:14 Dexamethasone (Dexamethasone) Confirm Administered Dose 4 mg .ROUTE .STK-MED ONE Stop: 03/29/17 13:16 Dexamethasone (Dexamethasone) Confirm Administered Dose 4 mg .ROUTE .STK-MED ONE Stop: 04/04/17 11:28 Enoxaparin Sodium (Lovenox) 30 mg SUBCUT DAILY [facility] Last Admin: 04/07/17 12:45 Dose: 30 mg Fentanyl (Sublimaze) Confirm Administered Dose 250 mcg .ROUTE .STK-MED ONE Stop: 04/04/17 11:28 Fentanyl (Sublimaze) Confirm Administered Dose 100 mcg .ROUTE .STK-MED ONE Stop: 04/04/17 13:31 Fentanyl Citrate (Fentanyl) Confirm Administered Dose 500 mcg .ROUTE .STK-MED ONE Stop: 03/29/17 13:15 Fentanyl Citrate (Fentanyl In Ns 20 Mcg/Ml 30 Ml Hydrant Setter) 0 mcg IV ASDIRECTED PRN; Protocol PRN Reason: PAIN Last Admin: 04/01/17 21:32 Dose: 600 mcg Glycopyrrolate (Robinul) Confirm Administered Dose 1 mg .ROUTE .STK-MED ONE Stop: 03/29/17 13:16 Glycopyrrolate (Robinul) Confirm Administered Dose 1 mg .ROUTE .STK-MED ONE Stop: 04/04/17 11:28 Hydromorphone HCl (Dilaudid Hydrant Setter 15 Mg In Ns 30 Ml) 0 mg IV ASDIRECTED PRN; Protocol PRN Reason: Pain Last Admin: 04/07/17 09:49 Dose: 15 mg Hydroxyzine HCl (Vistaril) 75 mg IM ONETIME ONE Stop: 04/04/17 13:36 Last Admin: 04/04/17 13:40 Dose: 75 mg Cefoxitin Sodium 2 gm/ Sodium (Chloride) 50 mls @ 100 mls/hr IV ONCALL ONE Stop: 03/29/17 13:29 Last Admin: 03/29/17 12:33 Dose: 100 mls/hr Dextrose/Lactated Ringer's (Dextrose 5%-Lactated Ringers) 1,000 mls @ 500 mls/ hr IV ONETIME ONE Stop: 03/29/17 14:29 Last Admin: 03/29/17 12:32 Dose: 500 mls/hr Lactated Ringer's (Ringers, Lactated) 1,000 mls @ 100 mls/hr IV ASDIRECTED [facility] Lactated Ringer's (Ringers, Lactated) Confirm Administered Dose 1,000 mls @ as directed .ROUTE .STK-MED ONE Stop: 03/29/17 13:57 Potassium Chloride/Dextrose/Sod Cl (D5 1/2 Ns W/ 20 Meq/L Kcl) 1,000 mls @ 150 mls/hr IV ASDIRECTED [facility] Last Infusion: 04/01/17 06:48 Dose: 50 mls/hr Lactated Ringer's (Ringers, Lactated) 500 mls @ 500 mls/hr IV .BOLUS [facility] Stop: 03/29/17 21:46 Last Admin: 03/29/17 21:00 Dose: 500 mls/hr Hetastarch/Sodium Chloride (Hetastarch 6% In Normal Saline) 500 mls @ 500 mls/ hr IV ONETIME ONE Stop: 03/30/17 01:19 Last Admin: 03/30/17 00:33 Dose: 500 mls/hr Potassium Chloride/Dextrose/Sod Cl (D5 1/2 Ns W/ 20 Meq/L Kcl) 1,000 mls @ 25 mls/hr IV ASDIRECTED [facility] Last Admin: 04/03/17 17:05 Dose: 50 mls/hr Lactated Ringer's (Ringers, Lactated) Confirm Administered Dose 1,000 mls @ as directed .ROUTE .STK-MED ONE Stop: 04/04/17 13:11 Potassium Chloride/Dextrose/Sod Cl (D5 1/2 Ns W/ 20 Meq/L Kcl) 1,000 mls @ 125 mls/hr IV ASDIRECTED [facility] Last Admin: 04/07/17 10:14 Dose: 125 mls/hr Magnesium Sulfate 2 gm/ Sodium (Chloride) 54 mls @ 25 mls/hr IV ONETIME ONE Stop: 04/07/17 15:09 Last Admin: 04/07/17 12:45 Dose: 25 mls/hr Influenza Virus Vaccine (Pharmacy To Dose - Influenza Vaccine) 1 each IM ONETIME ONE Stop: 03/31/17 09:01 Influenza Virus Vaccine (Fluzone Quad [id number]) 60 mcg IM .ONCE ONE Stop: 03/29/17 17:16 Last Admin: 03/29/17 18:48 Dose: Not Given Influenza Virus Vaccine (Fluzone Quad [id number]) 60 mcg IM .ONCE ONE Stop: 03/31/17 10:01 Last Admin: 03/31/17 14:37 Dose: 60 mcg Midazolam HCl (Versed 1 Mg/Ml) Confirm Administered Dose 2 mg .ROUTE .STK-MED ONE Stop: 04/04/17 11:28 Naloxone HCl (Narcan) 0.1 mg IV ASDIRECTED PRN PRN Reason: RESP DISTRESS Neostigmine Methylsulfate (Neostigmine) Confirm Administered Dose 5 mg .ROUTE .STK-MED ONE Stop: 03/29/17 13:16 Neostigmine Methylsulfate (Neostigmine) Confirm Administered Dose 5 mg .ROUTE .STK-MED ONE Stop: 04/04/17 11:28 Ondansetron HCl (Zofran) Confirm Administered Dose 4 mg .ROUTE .STK-MED ONE Stop: 03/29/17 13:16 Ondansetron HCl (Zofran) 4 mg IVPUSH Q6H PRN PRN Reason: Nausea/Vomiting Last Admin: 04/05/17 08:12 Dose: 4 mg Ondansetron HCl (Zofran) Confirm Administered Dose 4 mg .ROUTE .STK-MED ONE Stop: 03/29/17 15:47 Last Admin: 03/29/17 15:57 Dose: 4 mg Ondansetron HCl (Zofran) Confirm Administered Dose 4 mg .ROUTE .STK-MED ONE Stop: 04/04/17 11:28 Pantoprazole Sodium (Protonix Iv) 40 mg IVPUSH DAILY [facility] Last Admin: 03/29/17 18:01 Dose: 40 mg Pantoprazole Sodium (Protonix Iv) 40 mg IVPUSH Q24H [facility] Last Admin: 04/07/17 17:04 Dose: 40 mg Prazosin HCl (Minpress) 4 mg PO QPM [facility] Last Admin: 04/05/17 21:32 Dose: 4 mg Propofol (Diprivan 20 Ml) Confirm Administered Dose 200 mg .ROUTE .STK-MED ONE Stop: 03/29/17 13:16 Propofol (Diprivan 20 Ml) Confirm Administered Dose 200 mg .ROUTE .STK-MED ONE Stop: 04/04/17 11:28 Rocuronium [place] (Zemuron) Confirm Administered Dose 50 mg .ROUTE .STK-MED ONE Stop: 03/29/17 13:16 Rocuronium [place] (Zemuron) Confirm Administered Dose 50 mg .ROUTE .STK-MED ONE Stop: 04/04/17 11:28 Succinylcholine Chloride (Quelicin) Confirm Administered Dose 200 mg .ROUTE .STK -MED ONE Stop: 03/29/17 13:16 Succinylcholine Chloride (Quelicin) Confirm Administered Dose 200 mg .ROUTE .STK -MED ONE Stop: 04/04/17 11:28 - Exam Wound/Incisions: Drainage Quality Assessment: DVT Prophylaxis (No Lovenox.) General: Alert, Oriented Lungs: Clear to Auscultation, Normal Respiratory Effort Cardiovascular: Regular Rate, Regular Rhythm, Bradycardia GI/Abdominal Exam: Soft, Non-Tender, Other (Gap in incision. ) Extremities: Normal Inspection, No Pedal Edema (Edema is improved. ) Skin: Warm, Dry Neurological: No New Focal Deficit Psy/Mental Status: Alert, Normal Affect, Normal Mood - Problem List & Annotations (1) Small bowel obstruction SNOMED Code(s): 588559972 Code(s): K56.609 - UNSP INTESTNL OBST, UNSP TO PARTIAL VERSUS COMPLETE OBST Status: Acute Current Visit: Yes - Problem List Review Problem List Initiated/Reviewed/Updated: Yes - My Orders Last 24 Hours: Active Orders 24 hr Category Date Time Status CBC W/O DIFF,HEMOGRAM [HEME] DAILY Lab 04/10/17 05:11 Ordered Lansoprazole [Prevacid Solutab] Med 04/08/17 16:30 Active 30 mg PO Q24H Medication Orders Acetaminophen/Codeine Phosphate (Tylenol With Codeine No.3 300mg/30mg) 1 - 2 tab PO Q4H PRN PRN Reason: Pain Last Admin: 04/09/17 14:53 Dose: 2 tab Admin: 04/09/17 11:01 Dose: 2 tab Admin: 04/09/17 06:41 Dose: 2 tab Admin: 04/09/17 02:09 Dose: 2 tab Admin: 04/08/17 20:07 Dose: 2 tab Admin: 04/08/17 15:59 Dose: 2 tab Admin: 04/08/17 11:58 Dose: 2 tab Admin: 04/08/17 07:44 Dose: 2 tab Admin: 04/08/17 03:38 Dose: 2 tab Admin: 04/07/17 23:33 Dose: 2 tab Admin: 04/07/17 19:26 Dose: 2 tab Admin: 04/07/17 14:47 Dose: 2 tab Admin: 04/04/17 08:04 Dose: 2 tab Admin: 04/04/17 03:35 Dose: 2 tab Admin: 04/03/17 23:49 Dose: 2 tab Admin: 04/03/17 19:53 Dose: 2 tab Admin: 04/03/17 16:18 Dose: 2 tab Admin: 04/03/17 11:59 Dose: 2 tab Admin: 04/03/17 08:06 Dose: 2 tab Admin: 04/03/17 03:11 Dose: 2 tab Admin: 04/02/17 19:48 Dose: 2 tab Admin: 04/02/17 15:25 Dose: 2 tab Admin: 04/02/17 10:25 Dose: 2 tab Hydroxyzine HCl (Vistaril) 50 mg IM Q4H PRN PRN Reason: Nausea Last Admin: 03/30/17 01:07 Dose: 50 mg Potassium Chloride/Dextrose/Sod Cl (D5 1/2 Ns W/ 20 Meq/L Kcl) 1,000 mls @ 25 mls/hr IV ASDIRECTED YULIANA Last Admin: 04/08/17 07:51 Dose: 25 mls/hr Lansoprazole (Prevacid Solutab) 30 mg PO Q24H [facility] Last Admin: 04/08/17 15:59 Dose: 30 mg Miconazole (Miconazole 2% Crm) 0 gm TOP BID PRN PRN Reason: Itching Last Admin: 04/05/17 14:55 Dose: 1 applic Naloxone HCl (Narcan) 0.1 mg IV ASDIRECTED PRN PRN Reason: decreased respiratory rate Nicotine (Habitrol) 7 mg TRDERM DAILY [facility] Last Admin: 04/09/17 09:09 Dose: 7 mg Admin: 04/08/17 10:43 Dose: 7 mg Admin: 04/07/17 09:51 Dose: 7 mg Admin: 04/06/17 08:06 Dose: 7 mg Admin: 04/05/17 08:13 Dose: 7 mg Admin: 04/04/17 14:28 Dose: 7 mg Admin: 04/03/17 08:07 Dose: 7 mg Admin: 04/02/17 08:35 Dose: 7 mg Admin: 04/01/17 08:51 Dose: 7 mg Admin: 03/31/17 08:31 Dose: 7 mg Admin: 03/30/17 08:10 Dose: 7 mg Admin: 03/29/17 17:56 Dose: 7 mg Ondansetron HCl (Zofran) 4 mg IVPUSH Q4H PRN PRN Reason: Nausea Last Admin: 04/08/17 20:12 Dose: 4 mg Admin: 04/08/17 16:00 Dose: 4 mg Admin: 04/08/17 10:12 Dose: 4 mg Admin: 04/06/17 21:54 Dose: 4 mg Admin: 04/06/17 17:10 Dose: 4 mg Admin: 04/06/17 08:58 Dose: 4 mg Prazosin HCl (Minpress) 4 mg PO BEDTIME YULIANA Last Admin: 04/08/17 20:07 Dose: 4 mg Admin: 04/07/17 22:31 Dose: 4 mg Admin: 04/06/17 20:13 Dose: 4 mg Propranolol HCl (Inderal La) 80 mg PO DAILY YULIANA Last Admin: 04/09/17 09:09 Dose: 80 mg Admin: 04/08/17 10:37 Dose: 80 mg Admin: 04/07/17 09:51 Dose: 80 mg Admin: 04/06/17 08:09 Dose: 80 mg Admin: 04/05/17 08:16 Dose: 80 mg Admin: 04/04/17 13:06 Dose: Admin: 04/03/17 08:07 Dose: 80 mg Admin: 04/02/17 08:35 Dose: 80 mg Admin: 04/01/17 08:43 Dose: 80 mg Admin: 03/31/17 08:32 Dose: 80 mg Admin: 03/30/17 08:10 Dose: 80 mg Admin: 03/29/17 18:28 Dose: 80 mg - Assessment Assessment (Free Text/Narrative):: She feels fine and is doing well. She is eating well. She needs nutrition. There is a gap in her incision held with retention sutures. - Plan Plan (Free Text/Narrative):: Continue present management.
[2017-04-09] MEDS: Lansoprazole 30 MG Orally Disintegrating Tab.CR PO SCH (16:21)
[2017-04-09] MEDS: Prazosin 1 MG Cap PO SCH (20:30)
[2017-04-10] MEDS: Acetaminophen/Codeine 300-30 MG Tab PO PRN ×5 (05:04→20:46)
--- NOTE | 2017-04-10 06:33 | PCM.SURGPN ---
- General Info Date of Service: 04/10/17 Date of Surgery/Procedure: 04/04/17 POD#: 6 Post-Op Diagnosis: Dehiscence Functional Status: Reports: Pain Controlled, Tolerating Diet, Ambulating, Urinating - Review of Systems General: Reports: No Symptoms HEENT: Reports: No Symptoms Pulmonary: Reports: No Symptoms Cardiovascular: Reports: No Symptoms Gastrointestinal: Reports: Flatus, Other (Having BM's. Complains of retention sutures "puling.") Genitourinary: Reports: No Symptoms Musculoskeletal: Reports: No Symptoms Skin: Reports: No Symptoms Neurological: Reports: No Symptoms Psychiatric: Reports: No Symptoms - Patient Data Vitals - Most Recent: Last Vital Signs Temp 96.9 F 04/10/17 05:17 Pulse 69 04/10/17 05:17 Resp 18 04/10/17 05:17 BP 105/61 04/10/17 05:17 Pulse Ox 98 04/10/17 05:17 Weight - Most Recent: 170 lb 6.677 oz I&O - Last 24 Hours: Intake & Output 04/09/17 04/09/17 04/10/17 14:59 22:59 06:59 Intake Total 1300 1224 450 Output Total 1700 1000 1000 Balance -400 224 -550 Lab Results Last 24 Hrs: Laboratory Results - last 24 hr 04/10/17 Range/Units 04:45 WBC 7.6 (4.5-11.0) K/uL RBC 3.87 (3.30-5.50) M/uL Hgb 11.0 L (12.0-15.0) g/dL Hct 34.8 L (36.0-48.0) % MCV 90 (80-98) fL MCH 28 (27-31) pg MCHC 32 (32-36) % Plt Count 98 L (150-400) K/uL Med Orders - Current: Current Medications Acetaminophen/Codeine Phosphate (Tylenol With Codeine No.3 300mg/30mg) 1 - 2 tab PO Q4H PRN PRN Reason: Pain Last Admin: 04/10/17 05:04 Dose: 2 tab Hydroxyzine HCl (Vistaril) 50 mg IM Q4H PRN PRN Reason: Nausea Last Admin: 03/30/17 01:07 Dose: 50 mg Potassium Chloride/Dextrose/Sod Cl (D5 1/2 Ns W/ 20 Meq/L Kcl) 1,000 mls @ 25 mls/hr IV ASDIRECTED [facility] Last Admin: 04/08/17 07:51 Dose: 25 mls/hr Lansoprazole (Prevacid Solutab) 30 mg PO Q24H [facility] Last Admin: 04/09/17 16:21 Dose: 30 mg Miconazole (Miconazole 2% Crm) 0 gm TOP BID PRN PRN Reason: Itching Last Admin: 04/05/17 14:55 Dose: 1 applic Naloxone HCl (Narcan) 0.1 mg IV ASDIRECTED PRN PRN Reason: decreased respiratory rate Nicotine (Habitrol) 7 mg TRDERM DAILY [facility] Last Admin: 04/09/17 09:09 Dose: 7 mg Ondansetron HCl (Zofran) 4 mg IVPUSH Q4H PRN PRN Reason: Nausea Last Admin: 04/08/17 20:12 Dose: 4 mg Prazosin HCl (Minpress) 4 mg PO BEDTIME [facility] Last Admin: 04/09/17 20:30 Dose: 4 mg Propranolol HCl (Inderal La) 80 mg PO DAILY [facility] Last Admin: 04/09/17 09:09 Dose: 80 mg Discontinued Medications Cefoxitin Sodium (Mefoxin) Confirm Administered Dose 2 gm .ROUTE .STK-MED ONE Stop: 04/04/17 13:14 Dexamethasone (Dexamethasone) Confirm Administered Dose 4 mg .ROUTE .STK-MED ONE Stop: 03/29/17 13:16 Dexamethasone (Dexamethasone) Confirm Administered Dose 4 mg .ROUTE .STK-MED ONE Stop: 04/04/17 11:28 Enoxaparin Sodium (Lovenox) 30 mg SUBCUT DAILY [facility] Last Admin: 04/07/17 12:45 Dose: 30 mg Fentanyl (Sublimaze) Confirm Administered Dose 250 mcg .ROUTE .STK-MED ONE Stop: 04/04/17 11:28 Fentanyl (Sublimaze) Confirm Administered Dose 100 mcg .ROUTE .STK-MED ONE Stop: 04/04/17 13:31 Fentanyl Citrate (Fentanyl) Confirm Administered Dose 500 mcg .ROUTE .STK-MED ONE Stop: 03/29/17 13:15 Fentanyl Citrate (Fentanyl In Ns 20 Mcg/Ml 30 Ml Washer Operator) 0 mcg IV ASDIRECTED PRN; Protocol PRN Reason: PAIN Last Admin: 04/01/17 21:32 Dose: 600 mcg Glycopyrrolate (Robinul) Confirm Administered Dose 1 mg .ROUTE .[facility] ONE Stop: 03/29/17 13:16 Glycopyrrolate (Robinul) Confirm Administered Dose 1 mg .ROUTE .[facility] ONE Stop: 04/04/17 11:28 Hydromorphone HCl (Dilaudid Washer Operator 15 Mg In Ns 30 Ml) 0 mg IV ASDIRECTED PRN; Protocol PRN Reason: Pain Last Admin: 04/07/17 09:49 Dose: 15 mg Hydroxyzine HCl (Vistaril) 75 mg IM ONETIME ONE Stop: 04/04/17 13:36 Last Admin: 04/04/17 13:40 Dose: 75 mg Cefoxitin Sodium 2 gm/ Sodium (Chloride) 50 mls @ 100 mls/hr IV ONCALL ONE Stop: 03/29/17 13:29 Last Admin: 03/29/17 12:33 Dose: 100 mls/hr Dextrose/Lactated Ringer's (Dextrose 5%-Lactated Ringers) 1,000 mls @ 500 mls/ hr IV ONETIME ONE Stop: 03/29/17 14:29 Last Admin: 03/29/17 12:32 Dose: 500 mls/hr Lactated Ringer's (Ringers, Lactated) 1,000 mls @ 100 mls/hr IV ASDIRECTED [facility] Lactated Ringer's (Ringers, Lactated) Confirm Administered Dose 1,000 mls @ as directed .ROUTE .[facility] ONE Stop: 03/29/17 13:57 Potassium Chloride/Dextrose/Sod Cl (D5 1/2 Ns W/ 20 Meq/L Kcl) 1,000 mls @ 150 mls/hr IV ASDIRECTED [facility] Last Infusion: 04/01/17 06:48 Dose: 50 mls/hr Lactated Ringer's (Ringers, Lactated) 500 mls @ 500 mls/hr IV .BOLUS [facility] Stop: 03/29/17 21:46 Last Admin: 03/29/17 21:00 Dose: 500 mls/hr Hetastarch/Sodium Chloride (Hetastarch 6% In Normal Saline) 500 mls @ 500 mls/ hr IV ONETIME ONE Stop: 03/30/17 01:19 Last Admin: 03/30/17 00:33 Dose: 500 mls/hr Potassium Chloride/Dextrose/Sod Cl (D5 1/2 Ns W/ 20 Meq/L Kcl) 1,000 mls @ 25 mls/hr IV ASDIRECTED [facility] Last Admin: 04/03/17 17:05 Dose: 50 mls/hr Lactated Ringer's (Ringers, Lactated) Confirm Administered Dose 1,000 mls @ as directed .ROUTE .STK-MED ONE Stop: 04/04/17 13:11 Potassium Chloride/Dextrose/Sod Cl (D5 1/2 Ns W/ 20 Meq/L Kcl) 1,000 mls @ 125 mls/hr IV ASDIRECTED [facility] Last Admin: 04/07/17 10:14 Dose: 125 mls/hr Magnesium Sulfate 2 gm/ Sodium (Chloride) 54 mls @ 25 mls/hr IV ONETIME ONE Stop: 04/07/17 15:09 Last Admin: 04/07/17 12:45 Dose: 25 mls/hr Influenza Virus Vaccine (Pharmacy To Dose - Influenza Vaccine) 1 each IM ONETIME ONE Stop: 03/31/17 09:01 Influenza Virus Vaccine (Fluzone Quad 1271-1043) 60 mcg IM .ONCE ONE Stop: 03/29/17 17:16 Last Admin: 03/29/17 18:48 Dose: Not Given Influenza Virus Vaccine (Fluzone Quad [id number]) 60 mcg IM .ONCE ONE Stop: 03/31/17 10:01 Last Admin: 03/31/17 14:37 Dose: 60 mcg Midazolam HCl (Versed 1 Mg/Ml) Confirm Administered Dose 2 mg .ROUTE .STK-MED ONE Stop: 04/04/17 11:28 Naloxone HCl (Narcan) 0.1 mg IV ASDIRECTED PRN PRN Reason: RESP DISTRESS Neostigmine Methylsulfate (Neostigmine) Confirm Administered Dose 5 mg .ROUTE .STK-MED ONE Stop: 03/29/17 13:16 Neostigmine Methylsulfate (Neostigmine) Confirm Administered Dose 5 mg .ROUTE .STK-MED ONE Stop: 04/04/17 11:28 Ondansetron HCl (Zofran) Confirm Administered Dose 4 mg .ROUTE .STK-MED ONE Stop: 03/29/17 13:16 Ondansetron HCl (Zofran) 4 mg IVPUSH Q6H PRN PRN Reason: Nausea/Vomiting Last Admin: 04/05/17 08:12 Dose: 4 mg Ondansetron HCl (Zofran) Confirm Administered Dose 4 mg .ROUTE .STK-MED ONE Stop: 03/29/17 15:47 Last Admin: 03/29/17 15:57 Dose: 4 mg Ondansetron HCl (Zofran) Confirm Administered Dose 4 mg .ROUTE .STK-MED ONE Stop: 04/04/17 11:28 Pantoprazole Sodium (Protonix Iv) 40 mg IVPUSH DAILY [facility] Last Admin: 03/29/17 18:01 Dose: 40 mg Pantoprazole Sodium (Protonix Iv) 40 mg IVPUSH Q24H [facility] Last Admin: 04/07/17 17:04 Dose: 40 mg Prazosin HCl (Minpress) 4 mg PO QPM [facility] Last Admin: 04/05/17 21:32 Dose: 4 mg Propofol (Diprivan 20 Ml) Confirm Administered Dose 200 mg .ROUTE .STK-MED ONE Stop: 03/29/17 13:16 Propofol (Diprivan 20 Ml) Confirm Administered Dose 200 mg .ROUTE .STK-MED ONE Stop: 04/04/17 11:28 Rocuronium [place] (Zemuron) Confirm Administered Dose 50 mg .ROUTE .STK-MED ONE Stop: 03/29/17 13:16 Rocuronium [place] (Zemuron) Confirm Administered Dose 50 mg .ROUTE .STK-MED ONE Stop: 04/04/17 11:28 Succinylcholine Chloride (Quelicin) Confirm Administered Dose 200 mg .ROUTE .STK -MED ONE Stop: 03/29/17 13:16 Succinylcholine Chloride (Quelicin) Confirm Administered Dose 200 mg .ROUTE .STK -MED ONE Stop: 04/04/17 11:28 - Exam Wound/Incisions: Drainage General: Alert, Oriented, Cooperative Lungs: Clear to Auscultation, Normal Respiratory Effort Cardiovascular: Regular Rate, Regular Rhythm GI/Abdominal Exam: Normal Bowel Sounds Extremities: Normal Inspection, Normal Range of Motion, Non-Tender Skin: Warm, Dry, Intact Neurological: No New Focal Deficit Psy/Mental Status: Alert, Normal Affect, Normal Mood - Problem List & Annotations (1) Small bowel obstruction SNOMED Code(s): 123764297 Code(s): K56.609 - UNSP INTESTNL OBST, UNSP TO PARTIAL VERSUS COMPLETE OBST Status: Acute Current Visit: Yes - Problem List Review Problem List Initiated/Reviewed/Updated: Yes - My Orders Last 24 Hours: Medication Orders Acetaminophen/Codeine Phosphate (Tylenol With Codeine No.3 300mg/30mg) 1 - 2 tab PO Q4H PRN PRN Reason: Pain Last Admin: 04/10/17 05:04 Dose: 2 tab Admin: 04/09/17 22:29 Dose: 1 tab Admin: 04/09/17 22:26 Dose: 1 tab Admin: 04/09/17 18:45 Dose: 2 tab Admin: 04/09/17 14:53 Dose: 2 tab Admin: 04/09/17 11:01 Dose: 2 tab Admin: 04/09/17 06:41 Dose: 2 tab Admin: 04/09/17 02:09 Dose: 2 tab Admin: 04/08/17 20:07 Dose: 2 tab Admin: 04/08/17 15:59 Dose: 2 tab Admin: 04/08/17 11:58 Dose: 2 tab Admin: 04/08/17 07:44 Dose: 2 tab Admin: 04/08/17 03:38 Dose: 2 tab Admin: 04/07/17 23:33 Dose: 2 tab Admin: 04/07/17 19:26 Dose: 2 tab Admin: 04/07/17 14:47 Dose: 2 tab Admin: 04/04/17 08:04 Dose: 2 tab Admin: 04/04/17 03:35 Dose: 2 tab Admin: 04/03/17 23:49 Dose: 2 tab Admin: 04/03/17 19:53 Dose: 2 tab Admin: 04/03/17 16:18 Dose: 2 tab Admin: 04/03/17 11:59 Dose: 2 tab Admin: 04/03/17 08:06 Dose: 2 tab Admin: 04/03/17 03:11 Dose: 2 tab Admin: 04/02/17 19:48 Dose: 2 tab Admin: 04/02/17 15:25 Dose: 2 tab Admin: 04/02/17 10:25 Dose: 2 tab Hydroxyzine HCl (Vistaril) 50 mg IM Q4H PRN PRN Reason: Nausea Last Admin: 03/30/17 01:07 Dose: 50 mg Potassium Chloride/Dextrose/Sod Cl (D5 1/2 Ns W/ 20 Meq/L Kcl) 1,000 mls @ 25 mls/hr IV ASDIRECTED [facility] Last Admin: 04/08/17 07:51 Dose: 25 mls/hr Lansoprazole (Prevacid Solutab) 30 mg PO Q24H [facility] Last Admin: 04/09/17 16:21 Dose: 30 mg Admin: 04/08/17 15:59 Dose: 30 mg Miconazole (Miconazole 2% Crm) 0 gm TOP BID PRN PRN Reason: Itching Last Admin: 04/05/17 14:55 Dose: 1 applic Naloxone HCl (Narcan) 0.1 mg IV ASDIRECTED PRN PRN Reason: decreased respiratory rate Nicotine (Habitrol) 7 mg TRDERM DAILY [facility] Last Admin: 04/09/17 09:09 Dose: 7 mg Admin: 04/08/17 10:43 Dose: 7 mg Admin: 04/07/17 09:51 Dose: 7 mg Admin: 04/06/17 08:06 Dose: 7 mg Admin: 04/05/17 08:13 Dose: 7 mg Admin: 04/04/17 14:28 Dose: 7 mg Admin: 04/03/17 08:07 Dose: 7 mg Admin: 04/02/17 08:35 Dose: 7 mg Admin: 04/01/17 08:51 Dose: 7 mg Admin: 03/31/17 08:31 Dose: 7 mg Admin: 03/30/17 08:10 Dose: 7 mg Admin: 03/29/17 17:56 Dose: 7 mg Ondansetron HCl (Zofran) 4 mg IVPUSH Q4H PRN PRN Reason: Nausea Last Admin: 04/08/17 20:12 Dose: 4 mg Admin: 04/08/17 16:00 Dose: 4 mg Admin: 04/08/17 10:12 Dose: 4 mg Admin: 04/06/17 21:54 Dose: 4 mg Admin: 04/06/17 17:10 Dose: 4 mg Admin: 04/06/17 08:58 Dose: 4 mg Prazosin HCl (Minpress) 4 mg PO BEDTIME [facility] Last Admin: 04/09/17 20:30 Dose: 4 mg Admin: 04/08/17 20:07 Dose: 4 mg Admin: 04/07/17 22:31 Dose: 4 mg Admin: 04/06/17 20:13 Dose: 4 mg Propranolol HCl (Inderal La) 80 mg PO DAILY [facility] Last Admin: 04/09/17 09:09 Dose: 80 mg Admin: 04/08/17 10:37 Dose: 80 mg Admin: 04/07/17 09:51 Dose: 80 mg Admin: 04/06/17 08:09 Dose: 80 mg Admin: 04/05/17 08:16 Dose: 80 mg Admin: 04/04/17 13:06 Dose: Admin: 04/03/17 08:07 Dose: 80 mg Admin: 04/02/17 08:35 Dose: 80 mg Admin: 04/01/17 08:43 Dose: 80 mg Admin: 03/31/17 08:32 Dose: 80 mg Admin: 03/30/17 08:10 Dose: 80 mg Admin: 03/29/17 18:28 Dose: 80 mg - Assessment Assessment (Free Text/Narrative):: Will ask Dr. Arevalo to see her and recommend wound management. - Plan Plan (Free Text/Narrative):: Consult Dr. Arevalo. Consult dietary.
[2017-04-10] MEDS: Nicotine 7 MG/24 Hr Patch TRDERM SCH (08:01)
[2017-04-10] MEDS: Propranolol 80 MG Cap.ER PO SCH (08:01)
[2017-04-10] MEDS: Ondansetron 4 MG/2 ML SDV IVPUSH PRN ×2 (08:59→18:30)
[2017-04-10] MEDS: Lansoprazole 30 MG Orally Disintegrating Tab.CR PO SCH (16:19)
[2017-04-10] MEDS: Sodium Chloride 0.9% 1,000 ML IV SCH (16:53)
[2017-04-10] MEDS: Prazosin 1 MG Cap PO SCH (20:33)
[2017-04-11] MEDS: Sodium Chloride 0.9% 1,000 ML IV SCH ×2 (00:08→07:44)
[2017-04-11] MEDS: Acetaminophen/Codeine 300-30 MG Tab PO PRN ×5 (00:47→23:36)
[2017-04-11] MEDS: Propranolol 80 MG Cap.ER PO SCH (08:15)
[2017-04-11] MEDS ORDERED: Morphine 2 MG/ML Syringe IVPUSH PRN (10:54)
[2017-04-11] MEDS ORDERED: fentaNYL 100 MCG/2 ML SDV ONE ×2 (13:17→13:40)
[2017-04-11] MEDS ORDERED: Propofol 200 MG/20 ML SDV ONE ×2 (13:17→13:39)
[2017-04-11] MEDS ORDERED: Midazolam 1 MG/ML 2 ML SDV ONE (13:18)
[2017-04-11] MEDS ORDERED: Bupivacaine 0.5% 50 ML MDV ONE (13:41)
[2017-04-11] MEDS ORDERED: Lidocaine 1% with EPINEPHrine 1:100,000 50 ML MDV ONE (13:41)
[2017-04-11] MEDS: Nicotine 7 MG/24 Hr Patch TRDERM SCH (15:02)
[2017-04-11] MEDS: Lansoprazole 30 MG Orally Disintegrating Tab.CR PO SCH (17:51)
[2017-04-11] MEDS: Prazosin 1 MG Cap PO SCH (22:24)
[2017-04-12] MEDS: Acetaminophen/Codeine 300-30 MG Tab PO PRN ×2 (05:27→08:40)
[2017-04-12 08:40] VITALS: BP 109/78
[2017-04-12] MEDS: Propranolol 80 MG Cap.ER PO SCH (08:41)
[2017-04-12] MEDS: Nicotine 7 MG/24 Hr Patch TRDERM SCH (08:42)
--- NOTE | 2017-04-12 10:37 | PN ---
DATE OF SERVICE: 04/12/2017 SUBJECTIVE: The patient is doing very well. Pain is well controlled. No nausea, vomiting, shortness of breath, or chest pain. OBJECTIVE: VITAL SIGNS: She is afebrile. Temperature 98.1, blood pressure 109/78, pulse 70, respirations 16, 99% on room air. CARDIOVASCULAR: Regular rhythm and rate. RESPIRATORY: Lungs are clear to consultation bilaterally. ABDOMEN: Bowel sounds positive. Wound VAC intact. ASSESSMENT: Status post wound VAC and wound exploration. PLAN: The patient will be discharged today. Please see discharge instructions for further details. Alok Arevalo MD /[id number]
--- NOTE | 2017-04-12 10:53 | DISCH ---
SUMMARY: This is a 36-year-old female who has had approximately 25 surgeries throughout her surgical history. The patient was seen and admitted by Dr. Tillman on 03/29/2017 with abdominal pain and obstipation. The patient was taken to the operating room on 04/04/2017 and underwent an exploratory laparotomy and closure of abdominal wound dehiscence. The patient also had an additional exploration by Dr. Tillman and then one by myself. At discharge time, the patient had closure of the wound approximately 60% to 70%, had a wound VAC placed and had no fevers. Tolerating diet and is doing quite well. FOLLOWUP: Follow up with Surgery on Friday for wound VAC placement or wound VAC exchange. ACTIVITY: Essentially ambulation only. DISCHARGE MEDICATIONS: Please see MAR, but include Tylenol #3 for pain. DISPOSITION: Good. ADDITIONAL CONSULTATIONS DURING THIS HOSPITALIZATION: None.
--- NOTE | 2017-04-12 11:50 | OR ---
DATE OF PROCEDURE: 04/11/2017 PROCEDURE: 1. Reopening of recent laparotomy (17496). 2. Wound debridement (53437). 3. Wound VAC placement, (81546). 4. Description of wound is 19.5 cm x 1.8 with a depth of 2.1 cm. INDICATIONS FOR PROCEDURE: This is a 36-year-old female patient, requiring evaluation and management definitive treatment of her chronic wound. The patient has had approximately 25 abdominal surgeries by multiple physicians in multiple locations. Recently, she has had exploratory laparotomy performed by Dr. Tillman and the patient requires further management at this time. PROCEDURE IN DETAIL: The patient was placed in supine position. The previous laparotomy was opened. This was noted to not contain any fistula at this time. The retention sutures had shifted and they were either removed, modified, or left in place. This laparotomy, the superior and inferior aspects of this were then reclosed with retention sutures. Debridement of the edges were then performed using a combination of electrocautery and sharp dissection. Minimal bleeding was controlled by electrocautery. As previously described, no evidence of fistula formation nor of abscess. An Adaptic dressing was then placed after thoroughly irrigating the laparotomy location. This was overlaid with a silver sponge along with standard wound VAC dressings. Of note, after the procedure, the wound was closed approximately 70%, but the mid abdomen aspect of this was unable to be closed due to the loss of domain and the concern for infection. Therefore, this will be allowed to close by retention. The patient tolerated the procedure well. Alok Arevalo MD /[id number]
== END 2017-04-12 10:37 | disposition home or self-care (01) | DRG 330 ==
LOC: JP.MS 10:55
PROVIDERS: ADMIT Surgery; ATTEND Surgery
PROC: 0DS80ZZ Reposition Small Intestine, Open Approach (ICD-10-PCS; principal; 2017-03-29)
PROC: 0DB80ZX Excision of Small Intestine, Open Approach, Diagnostic (ICD-10-PCS; 2017-03-29)
PROC: 0DB80ZX Excision of Small Intestine, Open Approach, Diagnostic (ICD-10-PCS; 2017-03-29)
PROC: 0WQF0ZZ Repair Abdominal Wall, Open Approach (ICD-10-PCS; 2017-04-04)
PROC: 0WJF0ZZ Inspection of Abdominal Wall, Open Approach (ICD-10-PCS; 2017-04-11)
PROC: 0HD7XZZ Extraction of Abdomen Skin, External Approach (ICD-10-PCS; 2017-04-11)
PROC: 2W13X6Z Compression of Abdominal Wall using Pressure Dressing (ICD-10-PCS; 2017-04-11)
DX: K56.2 Volvulus (principal); D69.3 Immune thrombocytopenic purpura; T81.30XA Disruption of wound, unspecified, initial encounter; K56.51 Intestinal adhesions [bands], with partial obstruction; Z48.1 Encounter for planned postprocedural wound closure; F31.9 Bipolar disorder, unspecified; Z23 Encounter for immunization; Z98.84 Bariatric surgery status; Z98.0 Intestinal bypass and anastomosis status; J45.909 Unspecified asthma, uncomplicated; Z87.891 Personal history of nicotine dependence; E53.8 Deficiency of other specified B group vitamins; F41.9 Anxiety disorder, unspecified; G43.909 Migraine, unspecified, not intractable, without status migrainosus; M19.90 Unspecified osteoarthritis, unspecified site; K21.9 Gastro-esophageal reflux disease without esophagitis; Z87.440 Personal history of urinary (tract) infections; Z88.5 Allergy status to narcotic agent; Z88.8 Allergy status to other drugs, medicaments and biological substances; A49.01 Methicillin susceptible Staphylococcus aureus infection, unspecified site
CPT/HCPCS: 36415; 80048; 80053; 83735; 84100; 85027; 86850; 86900; 86901; 87070; 87075; 87077; 87186; 87205; 88307; 90686; 94762; 97605; A9270-GY; C9113; G0008; J0330; J0694; J1100; J1170; J1650; J2250; J2270; J2405; J2704; J2710; J3010; J3410; J3475; J3480; J7040; J7042; J7050; J7120

== ENCOUNTER 2017-05-11 12:25 | Emergency (ER) | payer MEDICARE, MEDICAID ==
[2017-05-11 12:46] VITALS: BP 117/74
[2017-05-11] MEDS ORDERED: HYDROmorphone 0.5 MG/0.5 ML Syringe IM ONE (13:17)
--- NOTE | 2017-05-11 13:28 | EDM.PDOC ---
ED HPI GENERAL MEDICAL PROBLEM - General Chief Complaint: Wound Recheck Stated Complaint: OPEN WOUND/INCISION Time Seen by Provider: 05/11/17 12:45 Source of Information: Reports: Patient, Family History Limitations: Reports: No Limitations - History of Present Illness INITIAL COMMENTS - FREE TEXT/NARRATIVE: pt arrived with increased pain in her wound and she thinks the possible intestinal bulge has gotten bigger. Onset: Gradual Duration: Getting Worse Location: Reports: Abdomen Associated Symptoms: Reports: No Other Symptoms Lower Abdomen Pain Score (Numeric/FACES): 8 - Related Data Allergies Allergy/AdvReac Type Severity Reaction Status Date / Time hydrocodone Allergy Itching Verified 05/11/17 12:40 clonazepam AdvReac Hallucinati Verified 05/11/17 12:40 ons Home Meds: Home Meds Loratadine [Claritin] 10 mg PO DAILY 12/24/13 [History] Montelukast Sodium 10 mg PO BEDTIME 12/24/13 [History] Omeprazole 40 mg PO DAILY 12/24/13 [History] Propranolol HCl [Propranolol] 80 mg PO DAILY 12/24/13 [History] hydrOXYzine Pamoate [Vistaril] 50 mg PO TID PRN 12/24/13 [History] lamoTRIgine [Lamictal] 100 mg PO QAM 12/24/13 [History] Albuterol [Ventolin HFA] 2 puff INH Q4H PRN 06/17/14 [History] Gabapentin [Neurontin] 600 mg PO TID 06/17/14 [History] Lidocaine 5% 1 applic TOP BID PRN 06/17/14 [History] Prazosin [Minpress] 4 mg PO QPM 06/17/14 [History] Pregabalin [Lyrica] 100 mg PO BID 06/17/14 [History] Sennosides [Senna] 8.6 mg PO BID 06/17/14 [History] Ondansetron [Zofran] 4 mg PO Q8H PRN 09/25/14 [History] Baclofen 10 - 20 mg PO TID PRN 11/26/15 [History] Cyanocobalamin (Vitamin B-12) [Vitamin B-12] 2,500 mcg SL BID 11/26/15 [History] Ferrous Gluconate [Iron] 324 mg PO BID 11/26/15 [History] Multivitamin [Multi-Vitamin Daily] 1 tab PO DAILY 11/26/15 [History] Polyethylene Glycol 3350 [MiraLAX] 17 gm PO BID 11/26/15 [History] Vitamin B Complex 1 each PO DAILY 11/26/15 [History] Cholecalciferol (Vitamin D3) [Vitamin D3] 5,000 unit PO DAILY 11/27/15 [History] Eletriptan HBr [Relpax] 20 mg PO ASDIRECTED PRN 11/27/15 [History] Venlafaxine [Effexor] 100 mg PO TID 11/27/15 [History] Calcium Carbonate [Tums] 500 mg PO TIDMEALS 03/21/16 [History] Dicyclomine [Bentyl] 20 mg PO QID PRN 03/21/16 [History] Ergocalciferol (Vitamin D2) [Drisdol] 50,000 unit PO .MWF 03/21/16 [History] busPIRone [Buspar] 10 mg PO BEDTIME 03/21/16 [History] Folic Acid 1 mg PO DAILY 03/25/16 [History] [place]-3 Fatty Acids [Fish Oil] 500 mg PO DAILY 03/25/16 [History] Vitamin E 1,000 unit PO DAILY 03/25/16 [History] Acetaminophen [Tylenol] 650 mg PO Q4H PRN #0 tablet 03/28/16 [Rx] Celecoxib [CeleBREX] 100 mg PO BID 01/08/17 [History] Fluticasone/Vilanterol [Breo Ellipta 200-25 Mcg INH] 1 puff INH BID 03/29/17 [ History] Nicotine Polacrilex [Nicorette] 2 mg CHEW ASDIRECTED PRN 03/29/17 [History] Nicotine [Nicoderm CQ] 1 patch TD DAILY 03/29/17 [History] Past Medical History HEENT History: Reports: Allergic Rhinitis Cardiovascular History: Reports: Arrhythmia Respiratory History: Reports: Asthma Gastrointestinal History: Reports: Bowel Obstruction, GERD, Other (See Below) Other Gastrointestinal History: girth 40' Genitourinary History: Reports: UTI, Recurrent AUDIOPROSTHOLOGIST History: Reports: , Spontaneous Other OB/BYN History: collapsed uterus Musculoskeletal History: Reports: Back Pain, Chronic, Osteoarthritis Neurological History: Reports: Head Trauma, Migraines Psychiatric History: Reports: Addiction, Anxiety, Bipolar, Psych Hospitalization (s) Other Psychiatric History: psych inpt., split personality disorder Endocrine/Metabolic History: Reports: Obesity/BMI 30+ Hematologic History: Reports: B12 Deficiency, Folic Acid, Other (See Below) Other Hematologic History: itp Oncologic (Cancer) History: Reports: Other (See Below) 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 Dermatologic History: Reports: Eczema - Infectious Disease History Infectious Disease History: Reports: Chicken Pox, Influenza - Past Surgical History HEENT Surgical History: Reports: None GI Surgical History: Reports: Bariatric Procedure, Colon, Colonoscopy, EGD, Hernia, Abdominal, Lysis of Adhesions, Small Bowel Other GI Surgeries/Procedures: RNY 10 years ago Female Surgical History: Reports: Section, Tubal Ligation Social & Family History - Family History HEENT: Reports: Allergic Rhinitis, Hearing Impairment, Impaired Vision Cardiac: Reports: CO Respiratory: Reports: Asthma GI: Reports: None Psychiatric: Reports: Anxiety, Depression, Panic Attack Endocrine/Metabolic: Reports: Diabetes, Type I, Hypothyroidism, Obesity/MBI 30+ Oncologic: Reports: Lung, Thyroid - Tobacco Use Smoking Status *Q: Former Smoker Years of Tobacco use: 22 Packs/Tins Daily: 1 Used Tobacco, but Quit: Yes Month Tobacco Last Used: unknown Second Hand Smoke Exposure: No - Caffeine Use Caffeine Use: Reports: Coffee - Alcohol Use Days Per Week of Alcohol Use: 0 - Recreational Drug Use Recreational Drug Use: Yes Drug Use in Last 12 Months: Yes Recreational Drug Type: Reports: Marijuana/Hashish Other Recreational Drug Type: percocet Recreational Drug Use Frequency: Daily Recreational Drug Last Use: t-1 - Living Situation & Occupation Occupation: Disabled ED ROS GENERAL - Review of Systems Review Of Systems: See Below Constitutional: Reports: No Symptoms HEENT: Reports: No Symptoms Respiratory: Reports: No Symptoms Cardiovascular: Reports: No Symptoms Endocrine: Reports: No Symptoms GI/Abdominal: Reports: Abdominal Pain, Other ( increase in the intestinal bulge. ) : Reports: No Symptoms Musculoskeletal: Reports: No Symptoms Skin: Reports: No Symptoms ED EXAM, SKIN/RASH Exam: See Below Text/Narrative:: pt arrived with a enlargement of the already present bulge in the wound which is intestimnal. Exam Limited By: No Limitations General Appearance: Alert, Anxious GI/Abdominal: Other ( She has a open wound with retention sutures. She has a bulge in the wound which looks like a piece of intestine. She has an appt with Dr Clifford armando. he was called and he advised to continue the same care. She has used tylenol 3 in the past nd is asking for a few more. ) (Female) Exam: Deferred Rectal (Female) Exam: Deferred Back Exam: Normal Inspection Extremities: Normal Inspection Course - Vital Signs Last Recorded V/S: Last Vital Signs Temp 35.6 C 05/11/17 12:49 Pulse 75 05/11/17 12:49 Resp 16 05/11/17 12:49 BP 117/74 05/11/17 12:49 Pulse Ox 97 05/11/17 12:49 - Orders/Labs/Meds Meds: Medications Discontinued Medications Generic Name Dose Route Start Last Admin Trade Name Freq PRN Reason Stop Dose Admin Hydromorphone HCl 0.5 mg 05/11/17 13:17 05/11/17 13:41 Dilaudid IM 05/11/17 13:18 0.5 mg ONETIME ONE Administration - Re-Assessments/Exams Free Text/Narrative Re-Assessment/Exam: 05/11/17 13:29 Dr cabrera advised to continue the same care. Departure - Departure Time of Disposition: 13:29 Disposition: Home, Self-Care 01 Preliminary Cause of *Q: Sepsis & Multi System Organ Failure Clinical Impression: Encounter for wound re-check - Discharge Information Referrals: Maximo Zelaya, HYPNOTHERAPIST [Primary Care Provider] - Forms: ED Department Discharge Care Plan Goals: continue same care, tylenol 3 1 tab q6h prn for pain. #10
== END 2017-05-11 13:54 | disposition home or self-care (01) ==
LOC: JP.ED 12:25
DX: Z48.815 Encounter for surgical aftercare following surgery on the digestive system (principal); R10.9 Unspecified abdominal pain
CPT/HCPCS: 96372; 99283; J1170

== ENCOUNTER 2018-09-16 08:10 | Emergency (ER) | payer MEDICARE, MEDICAID ==
[2018-09-16 08:28] VITALS: BP 110/72
[2018-09-16] MEDS ORDERED: Bacitracin Oint 1 GM U/D Packet TOP ONE (08:32)
--- NOTE | 2018-09-16 09:21 | EDM.PDOC ---
ED HPI GENERAL MEDICAL PROBLEM - General Chief Complaint: Laceration Stated Complaint: LACERATION ON LEFT THUMB Time Seen by Provider: 09/16/18 08:30 Source of Information: Reports: Patient History Limitations: Reports: No Limitations - History of Present Illness INITIAL COMMENTS - FREE TEXT/NARRATIVE: 38-year-old female sustained a laceration on her right hand this morning while doing dishes. She has a flap laceration on the radial aspect of the proximal thumb over the metacarpal. Bleeding is controlled. Onset: Sudden Duration: Hour(s): (Within the last couple hours) Location: Reports: Upper Extremity, Right Associated Symptoms: Reports: No Other Symptoms Right Hand Pain Score (Numeric/FACES): 7 - Related Data Allergies Allergy/AdvReac Type Severity Reaction Status Date / Time hydrocodone Allergy Itching Verified 09/16/18 08:31 clonazepam AdvReac Hallucinati Verified 09/16/18 08:31 ons Home Meds: Home Meds Loratadine [Claritin] 10 mg PO DAILY 12/24/13 [History] Montelukast Sodium 10 mg PO BEDTIME 12/24/13 [History] Omeprazole 40 mg PO DAILY 12/24/13 [History] Propranolol HCl [Propranolol] 80 mg PO DAILY 12/24/13 [History] hydrOXYzine pamoate [Vistaril] 50 mg PO TID PRN 12/24/13 [History] lamoTRIgine [Lamictal] 100 mg PO QAM 12/24/13 [History] Albuterol [Ventolin HFA] 2 puff INH Q4H PRN 06/17/14 [History] Gabapentin [Neurontin] 600 mg PO TID 06/17/14 [History] Lidocaine 5% 1 applic TOP BID PRN 06/17/14 [History] Prazosin [Minpress] 4 mg PO QPM 06/17/14 [History] Pregabalin [Lyrica] 100 mg PO BID 06/17/14 [History] Sennosides [Senna] 8.6 mg PO BID 06/17/14 [History] Ondansetron [Zofran] 4 mg PO Q8H PRN 09/25/14 [History] Baclofen 10 - 20 mg PO TID PRN 11/26/15 [History] Cyanocobalamin (Vitamin B-12) [Vitamin B-12] 2,500 mcg SL BID 11/26/15 [History] Ferrous Gluconate [Iron] 324 mg PO BID 11/26/15 [History] Multivitamin [Multi-Vitamin Daily] 1 tab PO DAILY 11/26/15 [History] Polyethylene Glycol 3350 [MiraLAX] 17 gm PO BID 11/26/15 [History] Vitamin B Complex 1 each PO DAILY 11/26/15 [History] Cholecalciferol (Vitamin D3) [Vitamin D3] 5,000 unit PO DAILY 11/27/15 [History] Eletriptan HBr [Relpax] 20 mg PO ASDIRECTED PRN 11/27/15 [History] Venlafaxine [Effexor] 100 mg PO TID 11/27/15 [History] Calcium Carbonate [Tums] 500 mg PO TIDMEALS 03/21/16 [History] Dicyclomine [Bentyl] 20 mg PO QID PRN 03/21/16 [History] Ergocalciferol (Vitamin D2) [Drisdol] 50,000 unit PO .MWF 03/21/16 [History] busPIRone [Buspar] 10 mg PO BEDTIME 03/21/16 [History] Folic Acid 1 mg PO DAILY 03/25/16 [History] [place]-3 Fatty Acids [Fish Oil] 500 mg PO DAILY 03/25/16 [History] Vitamin E 1,000 unit PO DAILY 03/25/16 [History] Acetaminophen [Tylenol] 650 mg PO Q4H PRN #0 tablet 03/28/16 [Rx] Celecoxib [CeleBREX] 100 mg PO BID 01/08/17 [History] Fluticasone/Vilanterol [Breo Ellipta 200-25 Mcg INH] 1 puff INH BID 03/29/17 [ History] Nicotine Polacrilex [Nicorette] 2 mg CHEW ASDIRECTED PRN 03/29/17 [History] Nicotine [Nicoderm CQ] 1 patch TD DAILY 03/29/17 [History] Past Medical History HEENT History: Reports: Allergic Rhinitis Cardiovascular History: Reports: Arrhythmia Respiratory History: Reports: Asthma Gastrointestinal History: Reports: Bowel Obstruction, GERD, Other (See Below) Other Gastrointestinal History: girth 40' Genitourinary History: Reports: UTI, Recurrent 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: Reports: , Spontaneous Other 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: collapsed uterus Musculoskeletal History: Reports: Back Pain, Chronic, Osteoarthritis Neurological History: Reports: Head Trauma, Migraines Psychiatric History: Reports: Addiction, Anxiety, Bipolar, Psych Hospitalization (s) Other Psychiatric History: psych inpt., split personality disorder Endocrine/Metabolic History: Reports: Obesity/BMI 30+ Hematologic History: Reports: B12 Deficiency, Folic Acid, Other (See Below) Other Hematologic History: itp Oncologic (Cancer) History: Reports: Other (See Below) 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 Dermatologic History: Reports: Eczema - Infectious Disease History Infectious Disease History: Reports: Chicken Pox, Influenza - Past Surgical History HEENT Surgical History: Reports: None GI Surgical History: Reports: Bariatric Procedure, Colon, Colonoscopy, EGD, Hernia, Abdominal, Lysis of Adhesions, Small Bowel Other GI Surgeries/Procedures: RNY 10 years ago Female Surgical History: Reports: Section, Tubal Ligation Social & Family History - Family History HEENT: Reports: Allergic Rhinitis, Hearing Impairment, Impaired Vision Cardiac: Reports: [place] Respiratory: Reports: Asthma GI: Reports: None Psychiatric: Reports: Anxiety, Depression, Panic Attack Endocrine/Metabolic: Reports: Diabetes, Type I, Hypothyroidism, Obesity/MBI 30+ Oncologic: Reports: Lung, Thyroid - Tobacco Use Smoking Status *Q: Current Every Day Smoker Years of Tobacco use: 24 Packs/Tins Daily: 1 - Caffeine Use Caffeine Use: Reports: Coffee, Energy Drinks - Recreational Drug Use Recreational Drug Type: Reports: Other (see below) Other Recreational Drug Type: narcotics - Living Situation & Occupation Occupation: Disabled ED ROS GENERAL - Review of Systems Review Of Systems: See Below Constitutional: Denies: Fever Respiratory: Denies: Shortness of Breath GI/Abdominal: Denies: Abdominal Pain Neurological: Denies: Paresthesia (No numbness to the distal thumb) ED EXAM, SKIN/RASH Exam: See Below Exam Limited By: No Limitations General Appearance: Alert, No Apparent Distress Respiratory/Chest: No Respiratory Distress, Lungs Clear Extremities: Other (Exam is otherwise limited to the right hand. Patient has a 4 cm flap laceration on the radial aspect of the thumb over the metacarpal. She has full range of motion and no distal numbness.) Course - Vital Signs Last Recorded V/S: Last Vital Signs Temp 95.3 F L 09/16/18 08:27 Pulse 83 04/17/19 08:27 Resp 18 09/16/18 08:27 BP 110/72 09/16/18 08:27 Pulse Ox 98 09/16/18 08:27 - Orders/Labs/Meds Meds: Medications Discontinued Medications Generic Name Dose Route Start Last Admin Trade Name Jaye PRN Reason Stop Dose Admin Bacitracin 1 dose 09/16/18 08:32 09/16/18 08:41 Bacitracin Oint 1 Gm TOP 09/16/18 08:33 1 dose ONETIME ONE Administration Lidocaine HCl 5 ml 09/16/18 08:32 09/16/18 08:40 Xylocaine-Mpf 1% INJECT 09/16/18 08:33 5 ml ONETIME ONE Administration - Re-Assessments/Exams Free Text/Narrative Re-Assessment/Exam: 09/16/18 09:19 The laceration was anesthetized with 1% lidocaine, cleansed thoroughly with saline, and then closed with 9 5-0 Ethilon sutures. Topical bacitracin and bandages were applied, sutures can be removed in 8 days next . Tetanus is current. Departure - Departure Time of Disposition: 09:36 Disposition: Home, Self-Care 01 Condition: Good Clinical Impression: Laceration of hand Qualifiers: Encounter type: initial encounter Foreign body presence: without foreign body Laterality: right Qualified Code(s): S61.411A - Laceration without foreign body of right hand, initial encounter - Discharge Information Instructions: Laceration Care, Adult Referrals: Angelito Moore MD [Primary Care Provider] - Forms: ED Department Discharge Care Plan Goals: Keep the wound covered and clean while healing, and sutures can be removed in 8 days on September 24. Return sooner if concerns of infection or not healing satisfactorily.
== END 2018-09-16 09:37 | disposition home or self-care (01) ==
LOC: JP.ED 08:10
DX: S61.411A Laceration without foreign body of right hand, initial encounter (principal); F17.210 Nicotine dependence, cigarettes, uncomplicated; J45.909 Unspecified asthma, uncomplicated; K21.9 Gastro-esophageal reflux disease without esophagitis; Z88.5 Allergy status to narcotic agent; Z88.8 Allergy status to other drugs, medicaments and biological substances; W45.8XXA Other foreign body or object entering through skin, initial encounter; Z79.899 Other long term (current) drug therapy; Y93.G1 Activity, food preparation and clean up
CPT/HCPCS: 12002; 99282; J2001

== ENCOUNTER 2019-05-09 11:06 | Emergency (ER) | payer MEDICAID, MEDICARE ==
[2019-05-09 11:25] VITALS: BP 115/73; PULSE 62
--- NOTE | 2019-05-09 11:43 | EDM.PDOC ---
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 She was using a padded box sewer and injured herself. Superficial. Bleeding controlled. No foreign body. Last tetanus was last year. No other injuries. - Related Data Allergies Allergy/AdvReac Type Severity Reaction Status Date / Time hydrocodone Allergy Itching Verified 09/16/18 08:31 clonazepam AdvReac Hallucinati Verified 09/16/18 08:31 ons Home Meds: Home Meds Loratadine [Claritin] 10 mg PO DAILY 12/24/13 [History] Montelukast Sodium 10 mg PO BEDTIME 12/24/13 [History] Omeprazole 40 mg PO DAILY 12/24/13 [History] Propranolol HCl [Propranolol] 80 mg PO DAILY 12/24/13 [History] hydrOXYzine pamoate [Vistaril] 50 mg PO TID PRN 12/24/13 [History] lamoTRIgine [Lamictal] 100 mg PO QAM 12/24/13 [History] Albuterol [Ventolin HFA] 2 puff INH Q4H PRN 06/17/14 [History] Gabapentin [Neurontin] 600 mg PO TID 06/17/14 [History] Lidocaine 5% 1 applic TOP BID PRN 06/17/14 [History] Prazosin [Minpress] 4 mg PO QPM 06/17/14 [History] Pregabalin [Lyrica] 100 mg PO BID 06/17/14 [History] Sennosides [Senna] 8.6 mg PO BID 06/17/14 [History] Ondansetron [Zofran] 4 mg PO Q8H PRN 09/25/14 [History] Baclofen 10 - 20 mg PO TID PRN 11/26/15 [History] Cyanocobalamin (Vitamin B-12) [Vitamin B-12] 2,500 mcg SL BID 11/26/15 [History] Ferrous Gluconate [Iron] 324 mg PO BID 11/26/15 [History] Multivitamin [Multi-Vitamin Daily] 1 tab PO DAILY 11/26/15 [History] Polyethylene Glycol 3350 [MiraLAX] 17 gm PO BID 11/26/15 [History] Vitamin B Complex 1 each PO DAILY 11/26/15 [History] Cholecalciferol (Vitamin D3) [Vitamin D3] 5,000 unit PO DAILY 11/27/15 [History] Eletriptan HBr [Relpax] 20 mg PO ASDIRECTED PRN 11/27/15 [History] Venlafaxine [Effexor] 100 mg PO TID 11/27/15 [History] Calcium Carbonate [Tums] 500 mg PO TIDMEALS 03/21/16 [History] Dicyclomine [Bentyl] 20 mg PO QID PRN 03/21/16 [History] Ergocalciferol (Vitamin D2) [Drisdol] 50,000 unit PO .MWF 03/21/16 [History] busPIRone [Buspar] 10 mg PO BEDTIME 03/21/16 [History] Folic Acid 1 mg PO DAILY 03/25/16 [History] [place]-3 Fatty Acids [Fish Oil] 500 mg PO DAILY 03/25/16 [History] Vitamin E 1,000 unit PO DAILY 03/25/16 [History] Acetaminophen [Tylenol] 650 mg PO Q4H PRN #0 tablet 03/28/16 [Rx] Celecoxib [CeleBREX] 100 mg PO BID 01/08/17 [History] Fluticasone/Vilanterol [Breo Ellipta 200-25 Mcg INH] 1 puff INH BID 03/29/17 [ History] Nicotine Polacrilex [Nicorette] 2 mg CHEW ASDIRECTED PRN 03/29/17 [History] Nicotine [Nicoderm CQ] 1 patch TD DAILY 03/29/17 [History] Past Medical History HEENT History: Reports: Allergic Rhinitis Cardiovascular History: Reports: Arrhythmia Respiratory History: Reports: Asthma Gastrointestinal History: Reports: Bowel Obstruction, GERD, Other (See Below) Other Gastrointestinal History: girth 40' Genitourinary History: Reports: UTI, Recurrent 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: , Spontaneous Other SAS ETL DEVELOPER History: collapsed uterus Musculoskeletal History: Reports: Back Pain, Chronic, Osteoarthritis Neurological History: Reports: Head Trauma, Migraines Psychiatric History: Reports: Addiction, Anxiety, Bipolar, Psych Hospitalization (s) Other Psychiatric History: psych inpt., split personality disorder Endocrine/Metabolic History: Reports: Obesity/BMI 30+ Hematologic History: Reports: B12 Deficiency, Folic Acid, Other (See Below) Other Hematologic History: itp Oncologic (Cancer) History: Reports: Other (See Below) 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 Dermatologic History: Reports: Eczema - Infectious Disease History Infectious Disease History: Reports: Chicken Pox, Influenza - Past Surgical History HEENT Surgical History: Reports: None GI Surgical History: Reports: Bariatric Procedure, Colon, Colonoscopy, EGD, Hernia, Abdominal, Lysis of Adhesions, Small Bowel Other GI Surgeries/Procedures: RNY 10 years ago Female Surgical History: Reports: Section, Tubal Ligation Social & Family History - Family History HEENT: Reports: Allergic Rhinitis, Hearing Impairment, Impaired Vision Cardiac: Reports: [place] Respiratory: Reports: Asthma GI: Reports: None Psychiatric: Reports: Anxiety, Depression, Panic Attack Endocrine/Metabolic: Reports: Diabetes, Type I, Hypothyroidism, Obesity/MBI 30+ Oncologic: Reports: Lung, Thyroid - Caffeine Use Caffeine Use: Reports: Coffee, Energy Drinks - Living Situation & Occupation Occupation: Disabled ED ROS GENERAL - Review of Systems Review Of Systems: Comprehensive ROS is negative, except as noted in HPI. ED EXAM, GENERAL - Physical Exam Exam: See Below Exam Limited By: No Limitations General Appearance: Alert, WD/WN, No Apparent Distress Nose: Normal Inspection, Normal Mucosa, No Blood Head: Atraumatic, Normocephalic Neck: Normal Inspection, Supple, Non-Tender, Full Range of Motion Respiratory/Chest: No Respiratory Distress, Lungs Clear, Normal Breath Sounds, No Accessory Muscle Use, Chest Non-Tender Cardiovascular: Normal Peripheral Pulses, Regular Rate, Rhythm, No Edema, No Gallop, No JVD, No Murmur, No Rub Peripheral Pulses: 4+: Radial (L), Radial (R) GI/Abdominal: Normal Bowel Sounds, Soft, Non-Tender, No Organomegaly, No Distention, No Abnormal Bruit, No Mass Extremities: Other (2 cm superficial laceration of the left wrist area. No bleeding. No foreign body. CMS intact.) Course - Vital Signs Last Recorded V/S: Last Vital Signs Temp 36.2 C 05/09/19 11:22 Pulse 62 05/09/19 11:22 Resp 11 L 05/09/19 11:22 BP 115/73 05/09/19 11:22 Pulse Ox 97 05/09/19 11:22 - Radiology Interpretation Free Text/Narrative:: Patient was seen and examined shortly after arrival. Stable. She is up-to-date for her tetanus. Wound was irrigated with normal saline. Dermabond applied. Good approximation. Advised to keep it dry and clean. Close follow-up with PCP. Come back for any concern or any worsening symptom. Patient agrees with the plan. Stable for discharge. Departure - Departure Time of Disposition: 11:42 Disposition: Home, Self-Care 01 Condition: Good Clinical Impression: Wrist laceration - Discharge Information *PRESCRIPTION DRUG MONITORING PROGRAM REVIEWED*: Not Applicable *COPY OF PRESCRIPTION DRUG MONITORING REPORT IN PATIENT CARY: Not Applicable Instructions: Skin Tear Care, Laceration Care, Adult, Stitches, [place], or Adhesive Wound Closure Referrals: Angelito Moore MD [Primary Care Provider] - Additional Instructions: Advised to keep it dry and clean. Close follow-up with PCP. Come back for any concern or any worsening symptom. - Assessment/Plan Plan: Advised to keep it dry and clean. Close follow-up with PCP. Come back for any concern or any worsening symptom.
== END 2019-05-09 11:58 | disposition home or self-care (01) ==
LOC: JP.ED 11:06
DX: S61.512A Laceration without foreign body of left wrist, initial encounter (principal); J45.909 Unspecified asthma, uncomplicated; K21.9 Gastro-esophageal reflux disease without esophagitis; F31.9 Bipolar disorder, unspecified; F41.9 Anxiety disorder, unspecified; G43.909 Migraine, unspecified, not intractable, without status migrainosus; M19.90 Unspecified osteoarthritis, unspecified site; E66.9 Obesity, unspecified; Z68.32 Body mass index [BMI] 32.0-32.9, adult; Z79.51 Long term (current) use of inhaled steroids; Z88.5 Allergy status to narcotic agent; Z88.8 Allergy status to other drugs, medicaments and biological substances; Z79.899 Other long term (current) drug therapy; W26.0XXA Contact with knife, initial encounter; Y99.0 Civilian activity done for income or pay
CPT/HCPCS: 12001; 99282-25

== ENCOUNTER 2020-02-15 12:42 | Emergency (ER) | payer MEDICARE, OTHER | END 2020-02-15 15:00 | disposition left against medical advice (07) | LOC: JP.ED 12:42 | DX: Z53.21 Procedure and treatment not carried out due to patient leaving prior to being seen by health care provider (principal) ==

== ENCOUNTER 2020-06-01 09:44 | Emergency (ER) | payer MEDICARE ==
[2020-06-01 10:03] VITALS: BP 128/77; PULSE 67
[2020-06-01] MEDS ORDERED: Ketorolac 60 MG/2 ML SDV IM ONE (10:09)
--- NOTE | 2020-06-01 10:12 | EDM.PDOC ---
ED HPI GENERAL MEDICAL PROBLEM - General Chief Complaint: Lower Extremity Injury/Pain Stated Complaint: FELL LAST EVENING LEFT HIP PAIN Time Seen by Provider: 06/01/20 10:03 Source of Information: Reports: Patient, RN Notes Reviewed History Limitations: Reports: No Limitations - History of Present Illness INITIAL COMMENTS - FREE TEXT/NARRATIVE: 40-year-old female presents emergency department with a complaint of left hip pain unfortunately fell last night when she slipped on the ice she still able to ambulate rates her pain 6 out of 10 Left Hip Pain Score (Numeric/FACES): 6 - Related Data Allergies Allergy/AdvReac Type Severity Reaction Status Date / Time hydrocodone Allergy Itching Verified 05/09/19 11:43 clonazepam AdvReac Hallucinati Verified 05/09/19 11:43 ons Home Meds: Home Meds Loratadine [Claritin] 10 mg PO DAILY 12/24/13 [History] Montelukast Sodium 10 mg PO BEDTIME 12/24/13 [History] Omeprazole 40 mg PO DAILY 12/24/13 [History] hydrOXYzine pamoate [Vistaril] 50 mg PO TID PRN 12/24/13 [History] lamoTRIgine [Lamictal] 100 mg PO QAM 12/24/13 [History] Albuterol [Ventolin HFA] 2 puff INH Q4H PRN 06/17/14 [History] Gabapentin [Neurontin] 600 mg PO TID 06/17/14 [History] Lidocaine 5% 1 applic TOP BID PRN 06/17/14 [History] Prazosin [Minpress] 4 mg PO QPM 06/17/14 [History] Pregabalin [Lyrica] 100 mg PO BID 06/17/14 [History] Sennosides [Senna] 8.6 mg PO BID 06/17/14 [History] Ondansetron [Zofran] 4 mg PO Q8H PRN 09/25/14 [History] Baclofen 10 - 20 mg PO TID PRN 11/26/15 [History] Cyanocobalamin (Vitamin B-12) [Vitamin B-12] 2,500 mcg SL BID 11/26/15 [History] Ferrous Gluconate [Iron] 324 mg PO BID 11/26/15 [History] Multivitamin [Multi-Vitamin Daily] 1 tab PO DAILY 11/26/15 [History] Polyethylene Glycol 3350 [MiraLAX] 17 gm PO BID 11/26/15 [History] Vitamin B Complex 1 each PO DAILY 11/26/15 [History] Cholecalciferol (Vitamin D3) [Vitamin D3] 5,000 unit PO DAILY 11/27/15 [History] Eletriptan Hydrobromide [Relpax] 20 mg PO ASDIRECTED PRN 11/27/15 [History] Venlafaxine [Effexor] 100 mg PO TID 11/27/15 [History] Calcium Carbonate [Tums] 500 mg PO TIDMEALS 03/21/16 [History] Dicyclomine [Bentyl] 20 mg PO QID PRN 03/21/16 [History] Ergocalciferol (Vitamin D2) [Drisdol] 50,000 unit PO .MWF 03/21/16 [History] busPIRone [Buspar] 10 mg PO BEDTIME 03/21/16 [History] Folic Acid 1 mg PO DAILY 03/25/16 [History] [place]-3 Fatty Acids [Fish Oil] 500 mg PO DAILY 03/25/16 [History] Vitamin E 1,000 unit PO DAILY 03/25/16 [History] Acetaminophen [Tylenol] 650 mg PO Q4H PRN #0 tablet 03/28/16 [Rx] Celecoxib [CeleBREX] 100 mg PO BID 01/08/17 [History] Fluticasone/Vilanterol [Breo Ellipta 200-25 Mcg INH] 1 puff INH BID 03/29/17 [History] Nicotine Polacrilex [Nicorette] 2 mg CHEW ASDIRECTED PRN 03/29/17 [History] Nicotine [Nicoderm CQ] 1 patch TD DAILY 03/29/17 [History] Sulindac 1 tab PO TID 05/09/19 [History] Propranolol [Inderal] 20 mg PO TID 06/01/20 [History] Past Medical History HEENT History: Reports: Allergic Rhinitis Cardiovascular History: Reports: Arrhythmia Respiratory History: Reports: Asthma Gastrointestinal History: Reports: Bowel Obstruction, GERD, Other (See Below) Other Gastrointestinal History: girth 40' Genitourinary History: Reports: UTI, Recurrent BELLY DANCER History: Reports: , Spontaneous Other BELLY DANCER History: collapsed uterus Musculoskeletal History: Reports: Back Pain, Chronic, Osteoarthritis Neurological History: Reports: Head Trauma, Migraines Psychiatric History: Reports: Addiction, Anxiety, Bipolar, Psych Hospitalization(s) Other Psychiatric History: psych inpt., split personality disorder Endocrine/Metabolic History: Reports: Obesity/BMI 30+ Hematologic History: Reports: B12 Deficiency, Folic Acid, Other (See Below) Other Hematologic History: itp Oncologic (Cancer) History: Reports: Other (See Below) 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 Dermatologic History: Reports: Eczema - Infectious Disease History Infectious Disease History: Reports: Chicken Pox, Influenza - Past Surgical History HEENT Surgical History: Reports: None GI Surgical History: Reports: Bariatric Procedure, Colon, Colonoscopy, EGD, Hernia, Abdominal, Lysis of Adhesions, Small Bowel Other GI Surgeries/Procedures: RNY 10 years ago Female Surgical History: Reports: Section, Tubal Ligation Social & Family History - Family History HEENT: Reports: Allergic Rhinitis, Hearing Impairment, Impaired Vision Cardiac: Reports: [place] Respiratory: Reports: Asthma GI: Reports: None Psychiatric: Reports: Anxiety, Depression, Panic Attack Endocrine/Metabolic: Reports: Diabetes, Type I, Hypothyroidism, Obesity/MBI 30+ Oncologic: Reports: Lung, Thyroid - Caffeine Use Caffeine Use: Reports: Coffee - Recreational Drug Use Recreational Drug Use: No - Living Situation & Occupation Occupation: Disabled Review of Systems - Review of Systems Review Of Systems: See Below Musculoskeletal: Reports: Joint Pain (Left hip) Skin: Reports: No Symptoms ED EXAM, GENERAL - Physical Exam Exam: See Below Free Text/Narrative:: Examination of the left hip she is point tender over the greater trochanter she has pain with flexion extension pain with internal and external rotation she is able to ambulate Exam Limited By: No Limitations General Appearance: Alert, WD/WN, No Apparent Distress Course - Vital Signs Last Recorded V/S: Last Vital Signs Temp 96.8 F L 06/01/20 10:03 Pulse 67 06/01/20 10:03 Resp 16 06/01/20 10:03 BP 128/77 06/01/20 10:03 Pulse Ox 98 06/01/20 10:03 - Orders/Labs/Meds Meds: Medications Discontinued Medications Generic Name Dose Route Start Last Admin Trade Name Freq PRN Reason Stop Dose Admin Ketorolac Tromethamine 60 mg 06/01/20 10:09 06/01/20 10:16 Toradol IM 06/01/20 10:10 60 mg ONETIME ONE Administration Departure - Departure Time of Disposition: 10:54 Disposition: Home, Self-Care 01 Condition: Fair Clinical Impression: Contusion of left hip Qualifiers: Encounter type: initial encounter Qualified Code(s): S70.02XA - Contusion of left hip, initial encounter - Discharge Information Instructions: Contusion, [id number] Referrals: PCP,None [Primary Care Provider] - Forms: ED Department Discharge, ED Return to Work/School Form Additional Instructions: Continue to use your regular medications may supplement with some Tylenol as needed for pain control, please followup with your primary care provider in 3-5 days if not better, please call return to the emergency department with worsening of symptoms. Sepsis Event Note (ED) - Evaluation Sepsis Screening Result: No Definite Risk - Focused Exam Vital Signs: Vital Signs Temp Pulse Resp BP Pulse Ox 06/01/20 10:03 96.8 F L 67 16 128/77 98 06/01/20 10:02 96.8 F L 67 16 128/77 98 - Assessment/Plan Plan: Assessment Acuity = acute Site and laterality = left hip contusion Etiology = secondary to fall on ice Manifestations = none Location of injury = Home Lab values = x-ray of the hip revealed no fracture Plan Had good relief with Toradol provided in the emergency department she will continue to use her regular medications Tylenol as needed for pain control follow-up primary care 3 to 5 days if not better This note was dictated using [employer] voice recognition software please call with any questions on syntax or grammar.
--- NOTE | 2020-06-01 10:40 | CR ---
Hip Min 2V or 3V Lt CLINICAL HISTORY: Pain, fall FINDINGS: No fracture line is identified. Articular surfaces are smooth. IMPRESSION: No fracture or dislocation seen If clinical symptomatology persists or worsens a repeat exam is recommended.
== END 2020-06-01 11:10 | disposition home or self-care (01) ==
LOC: JP.ED 09:44
DX: S70.02XA Contusion of left hip, initial encounter (principal); J45.909 Unspecified asthma, uncomplicated; K21.9 Gastro-esophageal reflux disease without esophagitis; F31.9 Bipolar disorder, unspecified; F41.9 Anxiety disorder, unspecified; E66.9 Obesity, unspecified; Z88.5 Allergy status to narcotic agent; Z88.8 Allergy status to other drugs, medicaments and biological substances; Z79.899 Other long term (current) drug therapy; Z68.31 Body mass index [BMI] 31.0-31.9, adult; W00.0XXA Fall on same level due to ice and snow, initial encounter
CPT/HCPCS: 73502; 96372; 99283; J1885

== ENCOUNTER 2021-10-26 10:19 | Emergency (ER) | payer OTHER, MEDICAID ==
[2021-10-26 10:31] VITALS: BP 140/78; PULSE 58
[2021-10-26] MEDS ORDERED: Ketorolac 30 MG/ML SDV IVPUSH ONE (10:52)
[2021-10-26] MEDS ORDERED: Lactated Ringers 1,000 ML IV ONE (10:55)
[2021-10-26] MEDS ORDERED: Ondansetron 4 MG/2 ML SDV IVPUSH ONE (10:57)
[2021-10-26] MEDS ORDERED: Sodium Chloride 0.9% 10 ML Syringe FLUSH PRN (11:20)
[2021-10-26] MEDS ORDERED: Sodium Chloride 0.9% 50 ML IV ONE (11:20)
[2021-10-26] MEDS ORDERED: Iopamidol 612 MG/ML 100 ML Bottle IV PRN (11:20)
[2021-10-26] MEDS ORDERED: fentaNYL 100 MCG/2 ML SDV IVPUSH ONE (11:50)
== END 2021-10-26 14:12 | disposition home or self-care (01) ==
LOC: JP.ED 10:19
DX: S40.011A Contusion of right shoulder, initial encounter (principal); S90.01XA Contusion of right ankle, initial encounter; J45.909 Unspecified asthma, uncomplicated; K21.9 Gastro-esophageal reflux disease without esophagitis; F17.210 Nicotine dependence, cigarettes, uncomplicated; E66.9 Obesity, unspecified; Z68.26 Body mass index [BMI] 26.0-26.9, adult; Z88.5 Allergy status to narcotic agent; Z88.8 Allergy status to other drugs, medicaments and biological substances; Z79.899 Other long term (current) drug therapy; V49.40XA Driver injured in collision with unspecified motor vehicles in traffic accident, initial encounter; Y92.410 Unspecified street and highway as the place of occurrence of the external cause
CPT/HCPCS: 36415; 70450; 71260; 72125; 73610; 74177; 80048; 85025; 96361; 96374; 96375; 99284; J1885; J2405; J3010; J3490; J7120; Q9967; 99282

== ENCOUNTER 2022-01-13 19:01 | Emergency (ER) | payer MEDICARE, MEDICAID | END 2022-01-13 19:55 | disposition left against medical advice (07) | LOC: JP.ED 19:01 | DX: Z53.21 Procedure and treatment not carried out due to patient leaving prior to being seen by health care provider (principal) ==

== ENCOUNTER 2022-01-29 18:28 | Inpatient (IN) | payer MEDICARE, MEDICAID ==
[2022-01-29] MEDS ORDERED: Sodium Chloride 0.9% 10 ML Syringe FLUSH PRN ×3 (18:30→21:40)
[2022-01-29] MEDS ORDERED: Naloxone 0.4 MG/ML SDV IVPUSH STA ×2 (18:31→18:44)
[2022-01-29] MEDS ORDERED: Ondansetron 4 MG/2 ML SDV IVPUSH ONE (18:33)
[2022-01-29 19:06] LABS: ESTIMATED GFR 81 mL/min (>60)
[2022-01-29] MEDS ORDERED: Etomidate 2 MG/ML 10 ML SDV IVPUSH ONE (19:28)
[2022-01-29] MEDS ORDERED: Rocuronium 50 MG/5 ML Vial IVPUSH ONE (19:28)
[2022-01-29] MEDS ORDERED: propofoL 100 ML IV SCH (19:30)
[2022-01-29] MEDS ORDERED: Sodium Chloride 0.9% 1,000 ML IV SCH (20:00)
[2022-01-29] MEDS ORDERED: Non-Formulary Medication 1 Each (Fluticasone/Vilanterol [Breo Ellipta 200-25 Mcg Inhalatio INH SCH (21:40)
[2022-01-29] MEDS ORDERED: Albuterol 0.083% 2.5 MG/3 ML Neb Soln NEB PRN (21:40)
[2022-01-29] MEDS ORDERED: Enoxaparin 40 MG/0.4 ML Syringe SUBCUT SCH (21:40)
[2022-01-29] MEDS ORDERED: Ondansetron 4 MG/2 ML SDV IV PRN (21:40)
[2022-01-30] MEDS: Sodium Chloride 0.9% 1,000 ML IV SCH ×2 (01:27→08:29)
[2022-01-30 06:11] VITALS: PULSE 78
[2022-01-30] MEDS ORDERED: Baclofen 10 MG Tab PO PRN (09:42)
[2022-01-30] MEDS ORDERED: Albuterol 0.083% 2.5 MG/3 ML Neb Soln INH PRN (09:42)
[2022-01-30] MEDS ORDERED: Albuterol 8 GM Inhaler INH PRN (09:42)
[2022-01-30] MEDS ORDERED: Loratadine 10 MG Tab PO SCH (09:45)
[2022-01-30] MEDS ORDERED: Cetirizine 10 MG Tab PO SCH (09:45)
[2022-01-30] MEDS ORDERED: Pantoprazole 40 MG Tab.CR PO SCH (09:45)
[2022-01-30] MEDS ORDERED: hydrOXYzine HCl 25 MG Tab PO PRN (10:14)
[2022-01-30] MEDS ORDERED: Ondansetron 4 MG Tab.DIS PO PRN (10:17)
[2022-01-30 11:43] VITALS: BP 101/62
[2022-01-30] MEDS ORDERED: SULINDAC 200 MG PO SCH (14:00)
[2022-01-30] MEDS ORDERED: Gabapentin 300 MG Cap PO SCH (14:00)
[2022-01-30] MEDS ORDERED: Hyoscyamine 0.125 MG Tab.SL SL SCH (14:00)
[2022-01-30] MEDS ORDERED: Venlafaxine 75 MG Tab PO SCH (14:00)
[2022-01-30] MEDS ORDERED: Propranolol 40 MG Tab PO SCH (14:00)
[2022-01-30] MEDS ORDERED: DESIPRAMINE HCL 25 MG PO SCH (16:00)
[2022-01-30] MEDS ORDERED: Prazosin 1 MG Cap PO SCH (17:00)
[2022-01-30] MEDS ORDERED: lamoTRIgine 100 MG Tab PO SCH (17:00)
[2022-01-30] MEDS ORDERED: Pregabalin 100 MG Cap PO SCH (17:00)
[2022-01-30] MEDS ORDERED: Montelukast 10 MG Tab PO SCH (21:00)
[2022-01-30] MEDS ORDERED: diphenhydrAMINE 25 MG Cap PO SCH (21:00)
[2022-01-30] MEDS ORDERED: busPIRone 10 MG Tab PO SCH (21:00)
[2022-01-31] MEDS ORDERED: Pregabalin 100 MG Cap PO SCH (09:00)
== END 2022-01-30 15:00 | disposition home or self-care (01) | DRG 918 ==
LOC: JP.ED 18:28 → JP.ICU 20:51
PROVIDERS: ADMIT Hospitalist; ATTEND Hospitalist
PROC: 0BH17EZ Insertion of Endotracheal Airway into Trachea, Via Natural or Artificial Opening (ICD-10-PCS; principal; 2022-01-29)
PROC: 5A1935Z Respiratory Ventilation, Less than 24 Consecutive Hours (ICD-10-PCS; 2022-01-29)
DX: R41.82 Altered mental status, unspecified (principal); T50.901A Poisoning by unspecified drugs, medicaments and biological substances, accidental (unintentional), initial encounter; F11.20 Opioid dependence, uncomplicated; F12.20 Cannabis dependence, uncomplicated; J45.909 Unspecified asthma, uncomplicated; K21.9 Gastro-esophageal reflux disease without esophagitis; Z20.822 Contact with and (suspected) exposure to COVID-19; M54.9 Dorsalgia, unspecified; M19.90 Unspecified osteoarthritis, unspecified site; F31.9 Bipolar disorder, unspecified; G89.29 Other chronic pain; F12.229 Cannabis dependence with intoxication, unspecified; E53.8 Deficiency of other specified B group vitamins; Z98.84 Bariatric surgery status; Z88.5 Allergy status to narcotic agent; Z79.899 Other long term (current) drug therapy; Z88.8 Allergy status to other drugs, medicaments and biological substances
CPT/HCPCS: 36415; 70450; 71045; 80053; 80143; 80179; 80305; 80307; 81001; 83605; 85025; 93005; J2310 ×2; J2405; J2704; J3490 ×3; J7030; U0002; 31500; 36600; 43752; 51702; 80048; 82803; 96361; 96374; 96375; 99285-25; A9270-GY

== ENCOUNTER 2022-03-21 07:05 | Observation (INO) | payer MEDICARE, MEDICAID ==
[2022-03-21] MEDS ORDERED: Sodium Chloride 0.9% 1,000 ML IV SCH ×2 (07:15→08:30)
[2022-03-21 07:43] LABS: ESTIMATED GFR 81 mL/min (>60)
[2022-03-21] MEDS ORDERED: Ondansetron 4 MG/2 ML SDV IVPUSH ONE (10:16)
[2022-03-21] MEDS ORDERED: Magnesium Hydroxide 400 MG/5 ML Susp 30 ML Cup PO PRN (11:46)
[2022-03-21] MEDS ORDERED: Haloperidol Lactate 5 MG/ML SDV IVPUSH PRN (11:46)
[2022-03-21] MEDS ORDERED: Ondansetron 4 MG/2 ML SDV IV PRN (11:46)
[2022-03-21] MEDS ORDERED: Acetaminophen 325 MG Tab PO PRN (11:46)
[2022-03-21] MEDS ORDERED: LORazepam 2 MG/ML SDV ONE (12:47)
[2022-03-21] MEDS ORDERED: LORazepam 2 MG/ML SDV IVPUSH ONE (13:00)
[2022-03-21] MEDS: Midazolam 1 MG/ML 2 ML SDV IVPUSH PRN ×3 (14:51→19:42)
[2022-03-22] MEDS: Haloperidol Lactate 5 MG/ML SDV IVPUSH PRN ×2 (01:06→22:20)
[2022-03-22] MEDS: Midazolam 1 MG/ML 2 ML SDV IVPUSH PRN ×2 (03:07→07:36)
[2022-03-23] MEDS: Venlafaxine 75 MG Tab PO SCH ×3 (10:57→20:15)
[2022-03-23] MEDS: Divalproex Sodium Delayed-Release 250 MG Tab.CR PO SCH ×2 (10:58→17:28)
[2022-03-23] MEDS ORDERED: lamoTRIgine 100 MG Tab PO SCH (21:00)
[2022-03-24] MEDS: Ondansetron 4 MG Tab.DIS PO PRN ×2 (01:22→10:17)
[2022-03-24] MEDS: Venlafaxine 75 MG Tab PO SCH ×2 (08:28→13:25)
[2022-03-24] MEDS: Divalproex Sodium Delayed-Release 250 MG Tab.CR PO SCH (08:28)
[2022-03-24 08:42] VITALS: BP 132/81; PULSE 63
== END 2022-03-24 13:26 | disposition home or self-care (01) ==
LOC: JP.ED 07:05 → JP.ICU 09:33
PROVIDERS: ADMIT Internal Medicine; ATTEND Internal Medicine
DX: T50.901A Poisoning by unspecified drugs, medicaments and biological substances, accidental (unintentional), initial encounter (principal); F31.9 Bipolar disorder, unspecified; F60.3 Borderline personality disorder; K21.9 Gastro-esophageal reflux disease without esophagitis; M19.90 Unspecified osteoarthritis, unspecified site; F41.9 Anxiety disorder, unspecified; E66.9 Obesity, unspecified; J45.909 Unspecified asthma, uncomplicated; Z79.899 Other long term (current) drug therapy; Z88.5 Allergy status to narcotic agent; Z88.8 Allergy status to other drugs, medicaments and biological substances; Z98.890 Other specified postprocedural states; Z20.822 Contact with and (suspected) exposure to COVID-19
CPT/HCPCS: 36415; 70450; 80053; 80143; 80305; 80307; 81001; 85025; 90686; 99217; 99220; 99226; A9270; G0008; J1630; J2060; J2250; J2405; J7030; Q0162; U0002

== ENCOUNTER 2022-05-29 07:14 | Emergency (ER) | payer MEDICARE, MEDICAID ==
[2022-05-29] MEDS ORDERED: Ketorolac 30 MG/ML SDV IM ONE (07:50)
[2022-05-29] MEDS ORDERED: hydrOXYzine HCl 25 MG Tab PO ONE (07:51)
[2022-05-29 08:26] VITALS: BP 112/59; PULSE 69
[2022-05-29 08:35] LABS: CORONAVIRUS COVID-19 NAA NEGATIVE (NEGATIVE)
== END 2022-05-29 09:12 | disposition home or self-care (01) ==
LOC: JP.ED 07:14
DX: S40.012A Contusion of left shoulder, initial encounter (principal); R07.89 Other chest pain; R55 Syncope and collapse; F41.9 Anxiety disorder, unspecified; E66.9 Obesity, unspecified; Z68.28 Body mass index [BMI] 28.0-28.9, adult; Z88.5 Allergy status to narcotic agent; Z88.8 Allergy status to other drugs, medicaments and biological substances; Z79.899 Other long term (current) drug therapy; Z20.822 Contact with and (suspected) exposure to COVID-19; Z98.84 Bariatric surgery status; W19.XXXA Unspecified fall, initial encounter
CPT/HCPCS: 0241U; 36415; 71046; 73030; 80048; 84484; 85025; 85379; 93005; 96372; 99285; A9270; J1885

== ENCOUNTER 2023-11-20 12:52 | Emergency (ER) | payer MEDICARE, MEDICAID ==
[2023-11-20 13:16] LABS: HEMATOCRIT 37.3 % (34.3-46.0); HEMOGLOBIN 12.6 g/dL (11.2-15.5); MEAN CORPUSCULAR HEMOGLOBIN 27.1 pg (31.6-35.5); MEAN CORPUSCULAR HGB CONC 33.8 g/dL (31.6-35.5); MEAN CORPUSCULAR VOLUME 80.2 fL (81.4-99.0); RED BLOOD CELL COUNT 4.65 M/uL (3.77-5.24); WHITE BLOOD CELL COUNT,WBC 4.8 K/uL (3.2-11.0)
[2023-11-20 13:21] LABS: AMPHETAMINES SCREEN, URINE NEGATIVE (NEGATIVE); BARBITURATE SCREEN,URINE NEGATIVE (NEGATIVE); BENZODIAZEPINES SCREEN,URINE NEGATIVE (NEGATIVE); METHADONE SCREEN, URINE NEGATIVE (NEGATIVE); METHAMPHETAMINES SCREEN, URINE NEGATIVE (NEGATIVE); OXYCODONE SCREEN,URINE NEGATIVE (NEGATIVE); PROPOXYPHENE SCREEN,URINE NEGATIVE (NEGATIVE); THC SCREEN,URINE 50 NG/ML PRESUMPTIVE POSITIVE (NEGATIVE)
[2023-11-20 13:43] LABS: A/G RATIO 0.9 (1.2-2.2); ALANINE AMINOTRANSFERASE,ALT 25 U/L (12-78); ALBUMIN 3.3 g/dL (3.4-5.0); ALKALINE PHOSPHATASE 120 U/L (46-116); ASPARTATE AMNIOTRANSFERASE,AST 21 U/L (15-37); BILIRUBIN TOTAL 0.3 mg/dL (0.2-1.0); BLOOD UREA NITROGEN,BUN 11 mg/dL (7-18); CALCIUM 9.4 mg/dL (8.5-10.1); CARBON DIOXIDE,CO2 26 mmol/L (21-32); CHLORIDE,CL 106 mmol/L (100-108); CREATININE 0.7 mg/dL (0.6-1.0); EST CRCL DRUG DOSING (CG) 83.95 mL/min; ESTIMATED GFR 109 mL/min (>60); GLUCOSE RANDOM 86 mg/dL (74-106); MAGNESIUM 2.2 mg/dL (1.8-2.4); POTASSIUM,K 4.5 mmol/L (3.6-5.2); PROTEIN TOTAL,TP 6.8 g/dL (6.4-8.2); SODIUM,NA 139 mmol/L (140-148)
[2023-11-20 13:45] LABS: ANION GAP 11.5 mmol/L (5.0-14.0); TROPONIN I HIGH SENSITIVITY < 4.0 pg/mL (<=60.3)
[2023-11-20 13:52] LABS: APPEARANCE,URINE CLEAR (CLEAR); BILIRUBIN,URINE NEGATIVE (NEGATIVE); COLOR,URINE YELLOW (YELLOW); GLUCOSE,URINE NEGATIVE (NEGATIVE); KETONES,URINE NEGATIVE (NEGATIVE); LEUKOCYTE ESTERASE,URINE NEGATIVE (NEGATIVE); NITRITE,URINE NEGATIVE (NEGATIVE); OCCULT BLOOD,URINE NEGATIVE (NEGATIVE); PROTEIN,URINE NEGATIVE (NEGATIVE); UROBILINOGEN,URINE 0.2 EU/dL (0.2-1.0)
[2023-11-20] MEDS: Sodium Chloride 0.9% 10 ML Syringe FLUSH PRN (13:56)
[2023-11-20 13:57] LABS: RBC,URINE NOT SEEN (0-5); WBC,URINE 0-5 (0-5)
[2023-11-20 13:58] LABS: AMORPHOUS SEDIMENT,URINE NOT SEEN; BACTERIA,URINE MANY; EPITHELIAL CELLS,URINE NOT SEEN; MUCUS,URINE NOT SEEN
[2023-11-20 15:13] VITALS: BP 134/90; PULSE 68
== END 2023-11-20 15:20 | disposition home or self-care (01) ==
LOC: JP.ED 12:52
DX: R07.89 Other chest pain (principal); D69.6 Thrombocytopenia, unspecified; J45.909 Unspecified asthma, uncomplicated; K21.9 Gastro-esophageal reflux disease without esophagitis; F17.210 Nicotine dependence, cigarettes, uncomplicated; Z88.5 Allergy status to narcotic agent; Z88.8 Allergy status to other drugs, medicaments and biological substances; Z79.51 Long term (current) use of inhaled steroids; Z79.899 Other long term (current) drug therapy
CPT/HCPCS: 36415; 71046; 80053; 80305; 80307; 81001; 83735; 84443; 84484; 85027; 93005; 93010; 99285; J3490

== ENCOUNTER 2023-11-21 19:53 | Emergency (ER) | payer MEDICARE, MEDICAID ==
[2023-11-21 20:28] LABS: APPEARANCE,URINE TURBID (CLEAR); BILIRUBIN,URINE NEGATIVE (NEGATIVE); COLOR,URINE YELLOW (YELLOW); GLUCOSE,URINE NEGATIVE (NEGATIVE); KETONES,URINE NEGATIVE (NEGATIVE); LEUKOCYTE ESTERASE,URINE TRACE (NEGATIVE); NITRITE,URINE NEGATIVE (NEGATIVE); OCCULT BLOOD,URINE NEGATIVE (NEGATIVE); PROTEIN,URINE NEGATIVE (NEGATIVE)
[2023-11-21 20:36] LABS: HEMATOCRIT 37.4 % (34.3-46.0); HEMOGLOBIN 12.5 g/dL (11.2-15.5); MEAN CORPUSCULAR HEMOGLOBIN 26.8 pg (31.6-35.5); MEAN CORPUSCULAR HGB CONC 33.4 g/dL (31.6-35.5); MEAN CORPUSCULAR VOLUME 80.1 fL (81.4-99.0); RED BLOOD CELL COUNT 4.67 M/uL (3.77-5.24); WHITE BLOOD CELL COUNT,WBC 6.1 K/uL (3.2-11.0)
[2023-11-21 20:36] LABS: AMORPHOUS SEDIMENT,URINE NOT SEEN; BACTERIA,URINE MANY; EPITHELIAL CELLS,URINE FEW; MUCUS,URINE NOT SEEN; RBC,URINE 0-5 (0-5); WBC,URINE 20-30 (0-5)
[2023-11-21 20:39] LABS: AMPHETAMINES SCREEN, URINE NEGATIVE (NEGATIVE); BARBITURATE SCREEN,URINE NEGATIVE (NEGATIVE); BENZODIAZEPINES SCREEN,URINE PRESUMPTIVE POSITIVE (NEGATIVE); METHADONE SCREEN, URINE NEGATIVE (NEGATIVE); METHAMPHETAMINES SCREEN, URINE NEGATIVE (NEGATIVE); OXYCODONE SCREEN,URINE NEGATIVE (NEGATIVE); PROPOXYPHENE SCREEN,URINE NEGATIVE (NEGATIVE); THC SCREEN,URINE 50 NG/ML PRESUMPTIVE POSITIVE (NEGATIVE)
[2023-11-21 20:42] LABS: PLATELET COUNT,PLT 20 K/uL (130-375)
[2023-11-21 20:50] LABS: BLOOD UREA NITROGEN,BUN 14 mg/dL (7-18); CALCIUM 9.3 mg/dL (8.5-10.1); CARBON DIOXIDE,CO2 25 mmol/L (21-32); CHLORIDE,CL 104 mmol/L (100-108); CREATININE 0.7 mg/dL (0.6-1.0); EST CRCL DRUG DOSING (CG) 83.95 mL/min; ESTIMATED GFR 109 mL/min (>60); GLUCOSE RANDOM 85 mg/dL (74-106); POTASSIUM,K 4.1 mmol/L (3.6-5.2); SODIUM,NA 138 mmol/L (140-148)
[2023-11-21 20:51] LABS: ANION GAP 13.1 mmol/L (5.0-14.0); C-REACTIVE PROTEIN < 0.50 mg/dL (<0.50)
[2023-11-21 21:02] LABS: ATYPICAL LYMPHOCYTES FEW; EOSINOPHILS ABSOLUTE MAN 0.24 K/uL (0.00-0.40); EOSINOPHILS PERCENT MAN 4 % (2-4); LYMPHOCYTES PERCENT MAN 41 % (24-44); MONOCYTES ABSOLUTE MAN 0.37 K/uL (0.20-0.90); MONOCYTES PERCENT MAN 6 % (2-6); NEUTROPHILS ABSOLUTE MAN 2.99 K/uL (1.0-7.6); SEG NEUTROPHILS PERCENT MAN 49 % (36-66)
[2023-11-21 23:09] VITALS: BP 114/81; PULSE 77
[2023-11-21] MEDS: Sodium Chloride 0.9% 1,000 ML IV SCH (23:22)
== END 2023-11-22 07:35 | disposition left against medical advice (07) ==
LOC: JP.ED 19:53
DX: F19.10 Other psychoactive substance abuse, uncomplicated (principal); K21.9 Gastro-esophageal reflux disease without esophagitis; J45.909 Unspecified asthma, uncomplicated; E66.9 Obesity, unspecified; F17.210 Nicotine dependence, cigarettes, uncomplicated; Z88.8 Allergy status to other drugs, medicaments and biological substances; Z79.899 Other long term (current) drug therapy; Z68.29 Body mass index [BMI] 29.0-29.9, adult
CPT/HCPCS: 36415; 70450; 80048; 80143; 80179; 80305; 80307; 81001; 85025; 86140; 93005; 93010; 96360; 99285; J7030

== ENCOUNTER 2024-01-07 08:38 | Day surgery (SDC) | payer MEDICAID, MEDICARE ==
[2024-01-07] MEDS ORDERED: fentaNYL 100 MCG/2 ML SDV ONE (09:26)
[2024-01-07] MEDS ORDERED: Propofol 200 MG/20 ML SDV ONE ×2 (09:26→10:17)
[2024-01-07] MEDS: Sodium Chloride 0.9% 1,000 ML IV SCH (09:27)
[2024-01-07 12:09] VITALS: BP 114/78; PULSE 66
== END 2024-01-07 11:40 | disposition home or self-care (01) ==
LOC: JP.SDS 08:38
PROVIDERS: ATTEND Surgery
DX: Z12.11 Encounter for screening for malignant neoplasm of colon (principal); R19.5 Other fecal abnormalities; F41.8 Other specified anxiety disorders; J44.89 Other specified chronic obstructive pulmonary disease
CPT/HCPCS: J2704; J3010; J7030

== ENCOUNTER 2024-01-26 16:26 | Inpatient (IN) | payer MEDICARE ==
[2024-01-26] MEDS ORDERED: Sodium Chloride 0.9% 10 ML Syringe FLUSH PRN (16:33)
[2024-01-26] MEDS ORDERED: Polyethylene Glycol 3350 Powder 17 GM Packet PO PRN (16:33)
[2024-01-26] MEDS ORDERED: Levofloxacin/Dextrose 5%-Water 750 MG in Premix Bag 1 BAG IV SCH (17:00)
[2024-01-26 17:09] LABS: BASE EXCESS ARTERIAL -3.6 mm/L; BICARBONATE,ARTERIAL 18.8 mmol/L (22.0-26.0); CARBOXYHEMOGLOBIN 3.5 % (0.0-1.6); METHEMOGLOBIN 1.6 %; O2 SATURATION ARTERIAL 93.6 % (95.0-98.0); OXYHEMOGLOBIN 88.8 %; PCO2 ARTERIAL 27.4 mmHg (35.0-42.0); PO2 ARTERIAL 76.4 mmHg (75.0-100.0); TOTAL HEMOGLOBIN 12.1 g/dL (12.0-16.0)
[2024-01-26 17:10] LABS: BASOPHILS ABSOLUTE AUTO 0.02 K/uL (0.00-0.10); BASOPHILS PERCENT AUTO 0.2 % (0.1-1.3); HEMATOCRIT 35.6 % (34.3-46.0); HEMOGLOBIN 12.1 g/dL (11.2-15.5); IMMATURE GRAN ABSOLUTE AUTO 0.12 K/uL (0.00-0.23); IMMATURE GRAN PERCENT AUTO 1.1 % (0.0-0.7); LYMPHOCYTES ABSOLUTE AUTO 1.43 K/uL (0.8-3.3); LYMPHOCYTES PERCENT AUTO 12.5 % (11.4-47.7); MEAN CORPUSCULAR HEMOGLOBIN 26.9 pg (31.6-35.5); MEAN CORPUSCULAR VOLUME 79.3 fL (81.4-99.0); MONOCYTES PERCENT AUTO 2.6 % (3.3-12.6); NEUTROPHILS ABSOLUTE AUTO 9.54 K/uL (1.0-7.6); NEUTROPHILS PERCENT AUTO 83.6 % (40.0-78.1); PLATELET COUNT,PLT 69 K/uL (130-375); RED BLOOD CELL COUNT 4.49 M/uL (3.77-5.24); WHITE BLOOD CELL COUNT,WBC 11.4 K/uL (3.2-11.0)
[2024-01-26] MEDS ORDERED: Sennosides 8.6 MG Tab PO PRN (17:31)
[2024-01-26] MEDS ORDERED: Hyoscyamine 0.125 MG Tab.SL SL PRN (17:31)
[2024-01-26 17:35] LABS: A/G RATIO 0.7 (1.2-2.2); ALANINE AMINOTRANSFERASE,ALT 27 U/L (12-78); ALBUMIN 2.8 g/dL (3.4-5.0); ALKALINE PHOSPHATASE 205 U/L (46-116); ASPARTATE AMNIOTRANSFERASE,AST 56 U/L (15-37); BILIRUBIN TOTAL 0.5 mg/dL (0.2-1.0); BLOOD UREA NITROGEN,BUN 11 mg/dL (7-18); C-REACTIVE PROTEIN 15.41 mg/dL (<0.50); CALCIUM 9.1 mg/dL (8.5-10.1); CARBON DIOXIDE,CO2 22 mmol/L (21-32); CHLORIDE,CL 105 mmol/L (100-108); CREATININE 0.7 mg/dL (0.6-1.0); ESTIMATED GFR 109 mL/min (>60); GLUCOSE RANDOM 80 mg/dL (74-106); MAGNESIUM 1.9 mg/dL (1.8-2.4); POTASSIUM,K 3.2 mmol/L (3.6-5.2); PROTEIN TOTAL,TP 6.9 g/dL (6.4-8.2); SODIUM,NA 141 mmol/L (140-148)
[2024-01-26 17:37] LABS: ANION GAP 17.2 mmol/L (5.0-14.0)
[2024-01-26] MEDS: Acetaminophen 325 MG Tab PO PRN (18:06)
[2024-01-26] MEDS: Albuterol/Ipratropium 3.0-0.5 MG/3 ML Neb Soln NEB PRN (18:07)
[2024-01-26] MEDS: Potassium Chloride 20 MEQ Tab.ER PO ONE ×2 (18:07→21:06)
[2024-01-26] MEDS: Piperacillin/Tazobactam/Dext 4.5 GM in Premix Bag 1 BAG IV ONE (18:19)
[2024-01-26] MEDS: Sodium Chloride 0.9% 1,000 ML IV SCH (18:29)
[2024-01-26] MEDS: methylPREDNISolone Sodium Succinate 40 MG/1 ML SDV IVPUSH SCH (18:30)
[2024-01-26] MEDS: Enoxaparin 40 MG/0.4 ML Syringe SUBCUT SCH (18:54)
[2024-01-26] MEDS: Levofloxacin/Dextrose 5%-Water 750 MG in Premix Bag 1 BAG IV SCH (19:27)
[2024-01-26] MEDS: Albuterol 0.083% 2.5 MG/3 ML Neb Soln NEB PRN (20:12)
[2024-01-26] MEDS: Codeine/guaiFENesin 10-100 MG/5 ML Syrup 5 ML Cup PO PRN (20:59)
[2024-01-26] MEDS ORDERED: Pregabalin 100 MG Cap PO SCH (21:00)
[2024-01-26] MEDS ORDERED: VENLAFAXINE 100 MG PO SCH (21:00)
[2024-01-26] MEDS ORDERED: Non-Formulary Medication 1 Each (Fluticasone/Vilanterol [Breo Ellipta 200-25 Mcg Inhalatio INH SCH (21:00)
[2024-01-26] MEDS: busPIRone 10 MG Tab PO SCH (21:06)
[2024-01-26] MEDS: Pregabalin 100 MG Cap PO SCH (21:06)
[2024-01-26] MEDS: Montelukast 10 MG Tab PO SCH (21:06)
[2024-01-26] MEDS: Pantoprazole 40 MG Tab.CR PO SCH (21:06)
[2024-01-26] MEDS: Piperacillin/Tazobactam/Dext 4.5 GM in Premix Bag 1 BAG IV SCH (21:10)
[2024-01-27 05:20] LABS: HEMOGLOBIN 12.2 g/dL (11.2-15.5); MEAN CORPUSCULAR HEMOGLOBIN 26.9 pg (31.6-35.5); MEAN CORPUSCULAR HGB CONC 33.9 g/dL (31.6-35.5); MEAN CORPUSCULAR VOLUME 79.3 fL (81.4-99.0); RED BLOOD CELL COUNT 4.54 M/uL (3.77-5.24); WHITE BLOOD CELL COUNT,WBC 10.1 K/uL (3.2-11.0)
[2024-01-27 05:47] LABS: BLOOD UREA NITROGEN,BUN 6 mg/dL (7-18); CALCIUM 9.5 mg/dL (8.5-10.1); CARBON DIOXIDE,CO2 22 mmol/L (21-32); CHLORIDE,CL 109 mmol/L (100-108); CREATININE 0.6 mg/dL (0.6-1.0); ESTIMATED GFR 113 mL/min (>60); GLUCOSE RANDOM 117 mg/dL (74-106); POTASSIUM,K 4.2 mmol/L (3.6-5.2); SODIUM,NA 142 mmol/L (140-148)
[2024-01-27 05:49] LABS: ANION GAP 15.2 mmol/L (5.0-14.0)
[2024-01-27] MEDS: Pregabalin 100 MG Cap PO SCH (09:35)
[2024-01-27] MEDS: Cetirizine 10 MG Tab PO SCH (09:36)
[2024-01-27] MEDS: SUMAtriptan 6 MG/0.5 ML SDV SUBCUT PRN (14:14)
[2024-01-27] MEDS: Formoterol/Mometasone 200-5 MCG 8.8 GM Inhaler INH SCH (14:15)
[2024-01-27] MEDS: Celecoxib 100 MG Cap PO SCH (14:17)
[2024-01-27] MEDS: Venlafaxine 75 MG Tab PO SCH (14:17)
[2024-01-27] MEDS: SULINDAC 200 MG PO SCH (15:20)
[2024-01-27] MEDS: Prazosin 1 MG Cap PO SCH (17:05)
[2024-01-27] MEDS: lamoTRIgine 100 MG Tab PO SCH (17:05)
[2024-01-28] MEDS: predniSONE 20 MG Tab PO SCH (08:22)
[2024-01-28] MEDS: Cyclobenzaprine 10 MG Tab PO PRN (12:58)
[2024-01-28] MEDS: Fluconazole 150 MG Tab PO ONE (13:00)
[2024-01-28] MEDS: Doxycycline 100 MG Cap PO SCH (13:00)
[2024-01-28] MEDS: guaiFENesin 100 MG/5 ML Soln 10 ML UD Cup PO PRN (20:30)
[2024-01-29] MEDS: lamoTRIgine 100 MG Tab PO SCH (20:31)
[2024-01-29] MEDS: Prazosin 1 MG Cap PO SCH (20:32)
[2024-01-29] MEDS: Cefdinir 300 MG Cap PO SCH (20:35)
[2024-01-30 05:50] VITALS: BP 128/74; PULSE 77
[2024-01-30] MEDS: Ondansetron 4 MG/2 ML SDV IV PRN (08:11)
== END 2024-01-30 10:39 | disposition home or self-care (01) | DRG 193 ==
LOC: JP.MS 16:26
PROVIDERS: ADMIT Hospitalist; ATTEND Hospitalist
DX: J18.9 Pneumonia, unspecified organism (principal); J96.21 Acute and chronic respiratory failure with hypoxia; D69.3 Immune thrombocytopenic purpura; J44.1 Chronic obstructive pulmonary disease with (acute) exacerbation; J44.0 Chronic obstructive pulmonary disease with (acute) lower respiratory infection; K21.9 Gastro-esophageal reflux disease without esophagitis; E66.9 Obesity, unspecified; F41.9 Anxiety disorder, unspecified; F31.9 Bipolar disorder, unspecified; G89.29 Other chronic pain; M54.9 Dorsalgia, unspecified; J45.909 Unspecified asthma, uncomplicated; M19.90 Unspecified osteoarthritis, unspecified site; F17.210 Nicotine dependence, cigarettes, uncomplicated; Z88.5 Allergy status to narcotic agent; Z88.8 Allergy status to other drugs, medicaments and biological substances; Z90.49 Acquired absence of other specified parts of digestive tract; Z98.51 Tubal ligation status; Z98.84 Bariatric surgery status; Z79.52 Long term (current) use of systemic steroids; Z87.440 Personal history of urinary (tract) infections; Z98.890 Other specified postprocedural states; Z79.899 Other long term (current) drug therapy
CPT/HCPCS: 36415; 36600; 71046; 71046-26; 80048; 80053; 82803; 83605; 83735; 84145; 85025; 85027; 85049; 86140; 87040; 94640; 99222; 99232; 99238; A9270-GY; J1956; J2405; J2543; J2919; J3030; J7030; J7512; J7620; U0002

== ENCOUNTER 2024-06-01 04:57 | Inpatient (IN) | payer MEDICAID, MEDICARE ==
[2024-06-01] MEDS ORDERED: Ondansetron 4 MG Tab.DIS PO PRN (06:18)
[2024-06-01] MEDS: Sodium Chloride 0.9% 1,000 ML IV SCH ×2 (06:35→21:00)
[2024-06-01] MEDS: Doxycycline 100 MG in Sodium Chloride 0.9% 100 ML IV SCH (06:41)
[2024-06-01] MEDS ORDERED: diphenhydrAMINE 25 MG Cap PO PRN (06:47)
[2024-06-01] MEDS: Albuterol/Ipratropium 3.0-0.5 MG/3 ML Neb Soln NEB SCH ×2 (06:47→10:32)
[2024-06-01] MEDS: Ketorolac 30 MG/ML SDV IVPUSH PRN (06:49)
[2024-06-01 07:01] LABS: APPEARANCE,URINE CLEAR (CLEAR); BILIRUBIN,URINE NEGATIVE (NEGATIVE); COLOR,URINE YELLOW (YELLOW); GLUCOSE,URINE NEGATIVE (NEGATIVE); KETONES,URINE NEGATIVE (NEGATIVE); LEUKOCYTE ESTERASE,URINE NEGATIVE (NEGATIVE); NITRITE,URINE NEGATIVE (NEGATIVE); OCCULT BLOOD,URINE NEGATIVE (NEGATIVE); PH,URINE 5.5 (5.0-8.0); PROTEIN,URINE 30 mg/dL (NEGATIVE)
[2024-06-01 07:14] LABS: AMORPHOUS SEDIMENT,URINE NOT SEEN; BACTERIA,URINE MANY; EPITHELIAL CELLS,URINE MANY; MUCUS,URINE MANY; RBC,URINE 0-5 (0-5); WBC,URINE 0-5 (0-5)
[2024-06-01] MEDS ORDERED: Hyoscyamine 0.125 MG Tab.SL SL PRN (07:37)
[2024-06-01] MEDS: Ferrous Fumarate/Vitamin C 200-125 MG Tab PO SCH (08:33)
[2024-06-01] MEDS: Enoxaparin 40 MG/0.4 ML Syringe SUBCUT SCH (08:33)
[2024-06-01] MEDS: Oseltamivir 75 MG Cap PO SCH (08:33)
[2024-06-01] MEDS: Montelukast 10 MG Tab PO SCH (08:33)
[2024-06-01] MEDS: Folic Acid 1 MG Tab PO SCH (08:33)
[2024-06-01] MEDS: Cyanocobalamin (Vitamin B12) 1,000 MCG Tab PO SCH (08:33)
[2024-06-01] MEDS: Lactobacillus Rhamnosus GG (Probiotic) Cap PO SCH (08:33)
[2024-06-01 08:34] LABS: C-REACTIVE PROTEIN 20.76 mg/dL (<0.50); MAGNESIUM 1.7 mg/dL (1.8-2.4)
[2024-06-01] MEDS: lamoTRIgine 100 MG Tab PO SCH (08:34)
[2024-06-01] MEDS: methylPREDNISolone Sodium Succinate 40 MG/1 ML SDV IVPUSH SCH (08:34)
[2024-06-01] MEDS: Cetirizine 10 MG Tab PO SCH (08:34)
[2024-06-01] MEDS: Cholecalciferol (Vitamin D3) 25 MCG Tab PO SCH (08:34)
[2024-06-01] MEDS: Propranolol 40 MG Tab PO SCH (08:34)
[2024-06-01] MEDS: Pantoprazole 40 MG Vial IVPUSH SCH (08:35)
[2024-06-01 08:40] LABS: LACTIC ACID 1.6 mmol/L (0.4-2.0)
[2024-06-01] MEDS ORDERED: PREGABALIN 200 MG PO SCH ×2 (09:00→21:00)
[2024-06-01] MEDS: FLU (Fluarix Triv) TS24-25(6MOS UP)/PF 45 MCG/0.5 ML Syringe IM ONE (10:23)
[2024-06-01] MEDS: Pregabalin 100 MG Cap PO SCH (11:09)
[2024-06-01] MEDS: Magnesium Sulfate/Water Premix 2 GM in Premix Bag 1 BAG IV SCH (13:51)
[2024-06-01] MEDS: Venlafaxine 75 MG Tab PO SCH (13:51)
[2024-06-01] MEDS: cefTRIAXone 2 GM in Sodium Chloride 0.9% 50 ML IV SCH (15:40)
[2024-06-01] MEDS: hydrOXYzine HCl 25 MG Tab PO PRN (18:19)
[2024-06-01 20:19] LABS: BICARBONATE,ARTERIAL 17.7 mmol/L (22.0-26.0); METHEMOGLOBIN 1.7 %; O2 SATURATION ARTERIAL 93.7 % (95.0-98.0); OXYHEMOGLOBIN 90.2 %; PCO2 ARTERIAL 46.4 mmHg (35.0-42.0); PO2 ARTERIAL 90.8 mmHg (75.0-100.0); TOTAL HEMOGLOBIN 14.4 g/dL (12.0-16.0)
[2024-06-01] MEDS: LORazepam 2 MG/ML SDV IVPUSH ONE ×2 (20:20→22:30)
[2024-06-01 20:22] LABS: BASOPHILS ABSOLUTE AUTO 0.06 K/uL (0.00-0.10); BASOPHILS PERCENT AUTO 0.3 % (0.1-1.3); EOSINOPHILS ABSOLUTE AUTO 0.26 K/uL (0.00-0.40); EOSINOPHILS PERCENT AUTO 1.3 % (0.0-5.4); HEMATOCRIT 41.6 % (34.3-46.0); IMMATURE GRAN ABSOLUTE AUTO 0.21 K/uL (0.00-0.23); IMMATURE GRAN PERCENT AUTO 1.1 % (0.0-0.7); LYMPHOCYTES ABSOLUTE AUTO 1.44 K/uL (0.8-3.3); LYMPHOCYTES PERCENT AUTO 7.2 % (11.4-47.7); MEAN CORPUSCULAR HEMOGLOBIN 30.4 pg (31.6-35.5); MEAN CORPUSCULAR HGB CONC 33.7 g/dL (31.6-35.5); MEAN CORPUSCULAR VOLUME 90.4 fL (81.4-99.0); NEUTROPHILS ABSOLUTE AUTO 17.35 K/uL (1.0-7.6); NEUTROPHILS PERCENT AUTO 87.1 % (40.0-78.1); PLATELET COUNT,PLT 91 K/uL (130-375); WHITE BLOOD CELL COUNT,WBC 19.9 K/uL (3.2-11.0)
[2024-06-01 20:36] LABS: LACTIC ACID 2.7 mmol/L (0.4-2.0)
[2024-06-01 20:50] LABS: A/G RATIO 0.6 (1.2-2.2); ALANINE AMINOTRANSFERASE,ALT 36 U/L (12-78); ALBUMIN 2.6 g/dL (3.4-5.0); ALKALINE PHOSPHATASE 160 U/L (46-116); ASPARTATE AMNIOTRANSFERASE,AST 101 U/L (15-37); BILIRUBIN TOTAL 0.4 mg/dL (0.2-1.0); BLOOD UREA NITROGEN,BUN 22 mg/dL (7-18); CARBON DIOXIDE,CO2 19 mmol/L (21-32); CHLORIDE,CL 106 mmol/L (100-108); CREATININE 1.2 mg/dL (0.6-1.0); EST CRCL DRUG DOSING (CG) 48.46 mL/min; ESTIMATED GFR 57 mL/min (>60); GLUCOSE RANDOM 100 mg/dL (74-106); PROTEIN TOTAL,TP 6.7 g/dL (6.4-8.2); SODIUM,NA 136 mmol/L (140-148)
[2024-06-01 20:51] LABS: ANION GAP 17.4 mmol/L (5.0-14.0); POTASSIUM,K 6.4 mmol/L (3.6-5.2)
[2024-06-01] MEDS: busPIRone 10 MG Tab PO SCH (21:40)
[2024-06-01] MEDS: Magnesium Oxide 400 MG Tab PO SCH (21:42)
[2024-06-01] MEDS ORDERED: Sodium Chloride 0.9% 1,000 ML IV SCH (21:45)
[2024-06-01] MEDS ORDERED: VANCOmycin 1 GM SDV IV SCH (22:00)
[2024-06-01] MEDS: Piperacillin/Tazobactam 4.5 GM in Sodium Chloride 0.9% 100 ML IV ONE (22:03)
[2024-06-01] MEDS: LORazepam 2 MG/ML SDV IVPUSH PRN (22:04)
[2024-06-01 22:39] LABS: BICARBONATE,ARTERIAL 19.3 mmol/L (22.0-26.0); CARBOXYHEMOGLOBIN 1.1 % (0.0-1.6); METHEMOGLOBIN 1.8 %; O2 SATURATION ARTERIAL 96.3 % (95.0-98.0); OXYHEMOGLOBIN 93.5 %; PCO2 ARTERIAL 43.7 mmHg (35.0-42.0); TOTAL HEMOGLOBIN 14.2 g/dL (12.0-16.0)
[2024-06-01] MEDS: VANCOmycin 1.5 GM in Sodium Chloride 0.9% 250 ML IV ONE (22:49)
[2024-06-01] MEDS: levETIRAcetam 500 MG/5 ML SDV IVPUSH ONE (23:07)
[2024-06-01] MEDS: Sodium Polystyrene Sulfonate 15 GM/60 ML Susp 60 ML Bot RECTAL ONE (23:19)
[2024-06-02] MEDS: Acetaminophen 650 MG Supp RECTAL PRN (00:17)
[2024-06-02] MEDS: Piperacillin/Tazobactam 4.5 GM in Sodium Chloride 0.9% 100 ML IV SCH (03:45)
[2024-06-02 04:58] LABS: BASE EXCESS ARTERIAL -6.6 mm/L; BICARBONATE,ARTERIAL 18.5 mmol/L (22.0-26.0); CARBOXYHEMOGLOBIN 1.6 % (0.0-1.6); METHEMOGLOBIN 1.7 %; O2 SATURATION ARTERIAL 96.9 % (95.0-98.0); OXYHEMOGLOBIN 93.7 %; PCO2 ARTERIAL 37.4 mmHg (35.0-42.0); TOTAL HEMOGLOBIN 13.3 g/dL (12.0-16.0)
[2024-06-02 04:59] LABS: HEMATOCRIT 37.9 % (34.3-46.0); HEMOGLOBIN 12.8 g/dL (11.2-15.5); MEAN CORPUSCULAR HGB CONC 33.8 g/dL (31.6-35.5); RED BLOOD CELL COUNT 4.26 M/uL (3.77-5.24); WHITE BLOOD CELL COUNT,WBC 11.4 K/uL (3.2-11.0)
[2024-06-02 05:17] LABS: CALCIUM 8.3 mg/dL (8.5-10.1); CREATININE 0.7 mg/dL (0.6-1.0); EST CRCL DRUG DOSING (CG) 83.07 mL/min; POTASSIUM,K 4.7 mmol/L (3.6-5.2)
[2024-06-02 05:21] LABS: ANION GAP 14.7 mmol/L (5.0-14.0)
[2024-06-02] MEDS ORDERED: Pantoprazole 40 MG Tab.CR PO SCH (07:30)
[2024-06-02 09:26] LABS: BICARBONATE,ARTERIAL 19.6 mmol/L (22.0-26.0); METHEMOGLOBIN 1.4 %; O2 SATURATION ARTERIAL 95.9 % (95.0-98.0); OXYHEMOGLOBIN 93.6 %; PCO2 ARTERIAL 39.2 mmHg (35.0-42.0); PO2 ARTERIAL 98.7 mmHg (75.0-100.0)
[2024-06-02 09:29] LABS: BASE EXCESS ARTERIAL -5.6 mm/L
[2024-06-02] MEDS: HYDROmorphone 0.5 MG/0.5 ML Syringe IVPUSH PRN (09:34)
[2024-06-02] MEDS: VANCOmycin 1.25 GM in Sodium Chloride 0.9% 250 ML IV SCH (10:23)
[2024-06-02] MEDS: Haloperidol Lactate 5 MG/ML SDV IVPUSH PRN (10:35)
[2024-06-02] MEDS: predniSONE 20 MG Tab PO SCH (10:53)
[2024-06-02] MEDS: methylPREDNISolone Sodium Succinate 40 MG/1 ML SDV ONE (11:05)
[2024-06-02] MEDS: methylPREDNISolone Sodium Succinate 40 MG/1 ML SDV IVPUSH SCH (11:14)
[2024-06-02] MEDS: Pantoprazole 40 MG Vial IV SCH (11:14)
[2024-06-02] MEDS: levETIRAcetam in NaCl (iso-os) 1,000 MG in Premix Bag 1 BAG IV SCH (11:34)
[2024-06-02] MEDS: Piperacillin/Tazobactam/Dext 4.5 GM in Premix Bag 1 BAG IV SCH (12:11)
[2024-06-02] MEDS: Sodium Chloride 0.9% 1,000 ML IV SCH (13:48)
[2024-06-02 22:09] LABS: AMPHETAMINES SCREEN, URINE NEGATIVE (NEGATIVE); BARBITURATE SCREEN,URINE NEGATIVE (NEGATIVE); BENZODIAZEPINES SCREEN,URINE NEGATIVE (NEGATIVE); METHADONE SCREEN, URINE PRESUMPTIVE POSITIVE (NEGATIVE); METHAMPHETAMINES SCREEN, URINE NEGATIVE (NEGATIVE); OXYCODONE SCREEN,URINE NEGATIVE (NEGATIVE); PROPOXYPHENE SCREEN,URINE NEGATIVE (NEGATIVE); THC SCREEN,URINE 50 NG/ML PRESUMPTIVE POSITIVE (NEGATIVE)
[2024-06-03] MEDS: Haloperidol Lactate 5 MG/ML SDV IVPUSH PRN (00:08)
[2024-06-03] MEDS: Ondansetron 4 MG/2 ML SDV IV PRN (00:45)
[2024-06-03 04:51] LABS: CARBOXYHEMOGLOBIN 1.7 % (0.0-1.6); METHEMOGLOBIN 1.9 %; O2 SATURATION ARTERIAL 97.5 % (95.0-98.0); PCO2 ARTERIAL 36.2 mmHg (35.0-42.0)
[2024-06-03 04:52] LABS: HEMATOCRIT 36.8 % (34.3-46.0); HEMOGLOBIN 12.4 g/dL (11.2-15.5); MEAN CORPUSCULAR HGB CONC 33.7 g/dL (31.6-35.5); MEAN CORPUSCULAR VOLUME 89.1 fL (81.4-99.0); RED BLOOD CELL COUNT 4.13 M/uL (3.77-5.24); WHITE BLOOD CELL COUNT,WBC 7.4 K/uL (3.2-11.0)
[2024-06-03 05:19] LABS: A/G RATIO 0.6 (1.2-2.2); ALANINE AMINOTRANSFERASE,ALT 44 U/L (12-78); ALBUMIN 2.1 g/dL (3.4-5.0); ALKALINE PHOSPHATASE 135 U/L (46-116); ASPARTATE AMNIOTRANSFERASE,AST 96 U/L (15-37); BILIRUBIN TOTAL 0.4 mg/dL (0.2-1.0); BLOOD UREA NITROGEN,BUN 19 mg/dL (7-18); CALCIUM 8.4 mg/dL (8.5-10.1); CARBON DIOXIDE,CO2 24 mmol/L (21-32); CHLORIDE,CL 114 mmol/L (100-108); CREATININE 0.5 mg/dL (0.6-1.0); ESTIMATED GFR 117 mL/min (>60); GLUCOSE RANDOM 78 mg/dL (74-106); POTASSIUM,K 4.1 mmol/L (3.6-5.2); PROTEIN TOTAL,TP 5.6 g/dL (6.4-8.2); SODIUM,NA 148 mmol/L (140-148); VANCOMYCIN RANDOM 16.5 ug/mL (0.0-50.0)
[2024-06-03 05:23] LABS: ANION GAP 14.1 mmol/L (5.0-14.0)
[2024-06-03] MEDS: Acetaminophen 325 MG Tab PO PRN (09:05)
[2024-06-03] MEDS: DESIPRAMINE 10 MG PO SCH (11:46)
[2024-06-03] MEDS ORDERED: LORazepam 1 MG Tab PO PRN (15:17)
[2024-06-04] MEDS: Albuterol 0.083% 2.5 MG/3 ML Neb Soln NEB PRN (01:42)
[2024-06-04 05:11] LABS: CALCIUM 8.4 mg/dL (8.5-10.1); CREATININE 0.7 mg/dL (0.6-1.0); EST CRCL DRUG DOSING (CG) 83.07 mL/min; POTASSIUM,K 4.1 mmol/L (3.6-5.2)
[2024-06-04 05:14] LABS: ANION GAP 17.1 mmol/L (5.0-14.0)
[2024-06-04] MEDS: predniSONE 20 MG Tab PO SCH (08:47)
[2024-06-04] MEDS: levETIRAcetam 250 MG Tab PO SCH (20:44)
[2024-06-05] MEDS: Levofloxacin/Dextrose 5%-Water 750 MG in Premix Bag 1 BAG IV SCH (15:24)
[2024-06-05] MEDS: oxyCODONE 5 MG Tab PO PRN (18:25)
[2024-06-06] MEDS: Pantoprazole 40 MG Tab.CR PO SCH (11:20)
[2024-06-06] MEDS: Levofloxacin 250 MG Tab PO SCH (13:46)
[2024-06-07] MEDS: Gadoteridol 279.3 MG/ML 15 ML SDV IV SCH (09:35)
[2024-06-07 11:50] VITALS: BP 100/85; PULSE 59
== END 2024-06-07 12:06 | disposition home or self-care (01) | DRG 193 ==
LOC: JP.MS 04:57 → JP.ICU 21:20 → JP.MS 06-06 15:17
PROVIDERS: ADMIT Nurse Practitioner; ATTEND Internal Medicine
PROC: 4A133R1 Monitoring of Arterial Saturation, Peripheral, Percutaneous Approach (ICD-10-PCS; principal; 2024-06-01)
PROC: 5A09457 Assistance with Respiratory Ventilation, 24-96 Consecutive Hours, Continuous Positive Airway Pressure (ICD-10-PCS; 2024-06-01)
DX: J10.08 Influenza due to other identified influenza virus with other specified pneumonia (principal); J96.21 Acute and chronic respiratory failure with hypoxia; E87.20 Acidosis, unspecified; J15.9 Unspecified bacterial pneumonia; J44.0 Chronic obstructive pulmonary disease with (acute) lower respiratory infection; J44.1 Chronic obstructive pulmonary disease with (acute) exacerbation; H54.7 Unspecified visual loss; J44.89 Other specified chronic obstructive pulmonary disease; K21.9 Gastro-esophageal reflux disease without esophagitis; M19.90 Unspecified osteoarthritis, unspecified site; G43.909 Migraine, unspecified, not intractable, without status migrainosus; F41.9 Anxiety disorder, unspecified; F31.9 Bipolar disorder, unspecified; F42.9 Obsessive-compulsive disorder, unspecified; E66.9 Obesity, unspecified; F15.90 Other stimulant use, unspecified, uncomplicated; G89.0 Central pain syndrome; R56.9 Unspecified convulsions; Z99.81 Dependence on supplemental oxygen; Z68.27 Body mass index [BMI] 27.0-27.9, adult; Z87.891 Personal history of nicotine dependence; Z88.8 Allergy status to other drugs, medicaments and biological substances; Z79.51 Long term (current) use of inhaled steroids; Z79.1 Long term (current) use of non-steroidal anti-inflammatories (NSAID); Z87.440 Personal history of urinary (tract) infections; Z79.2 Long term (current) use of antibiotics; Z79.899 Other long term (current) drug therapy; Z98.84 Bariatric surgery status
CPT/HCPCS: 36415; 36600; 51702; 70450; 70553; 70553-26; 71045; 80048; 80053; 80202; 80305-QW; 81001; 82803; 83605; 83735; 84132; 84145; 84484; 85025; 85027; 86140; 87040; 93005; 93010; 94640; 94660; 99222; 99232; 99233; 99238; A9270-GY; A9579; J0696; J1630; J1650; J1885; J1953; J1956; J2060; J2405; J2470; J2543; J2919; J3371; J3475; J3490; J7030; J7050; J7512; J7620

== ENCOUNTER 2025-04-21 06:21 | Day surgery (SDC) | payer MEDICARE, MEDICAID ==
[2025-04-21] MEDS: Lactated Ringers 1,000 ML IV SCH (07:26)
[2025-04-21] MEDS ORDERED: Propofol 200 MG/20 ML SDV ONE (07:27)
[2025-04-21] MEDS ORDERED: fentaNYL 100 MCG/2 ML SDV ONE (07:27)
[2025-04-21 09:06] VITALS: BP 119/77; PULSE 75
== END 2025-04-21 09:10 | disposition home or self-care (01) ==
LOC: JP.SDS 06:21
PROVIDERS: ATTEND Surgery
DX: K21.00 Gastro-esophageal reflux disease with esophagitis, without bleeding (principal); J44.9 Chronic obstructive pulmonary disease, unspecified; F41.9 Anxiety disorder, unspecified; F32.A Depression, unspecified; Z87.891 Personal history of nicotine dependence; Z98.0 Intestinal bypass and anastomosis status; Z88.5 Allergy status to narcotic agent; Z91.030 Bee allergy status; Z88.8 Allergy status to other drugs, medicaments and biological substances; Z79.899 Other long term (current) drug therapy
CPT/HCPCS: 43239; J2704; J3010; J7120